=== PATIENT | female | born 1960 | race Caucasian/White ===

== ENCOUNTER 2018-05-20 02:37 | Inpatient (IN) ==
[2018-05-20] MEDS ORDERED: ONDANSETRON INJ 2 MG/ML 2 ML VIAL IV STA (02:59)
[2018-05-20] MEDS ORDERED: MoRPHine SULFATE 4 MG/ML 1 ML CARP\\VIAL IV STA (02:59)
--- NOTE | 2018-05-20 03:12 | Emergency Department Note ---
History of Present Illness General Chief complaint: Chest Pain Stated complaint: CHEST PAIN, VOMITING Source: patient Mode of arrival: ambulatory Limitations: no limitations History of Present Illness Maximum Pain Intensity: 9 This patient is a 58-year-old female who presents to the emergency department complaining of chest pain and vomiting. She reports the pain is at her lower chest and upper abdomen. The pain radiates into her back. Her pain started while she was sleeping 2 hours ago. She states the pain came on suddenly. It is worse when she takes a deep breath. She rates the discomfort a 9/10. She denies any history of similar symptoms. She denies any medical problems or history of abdominal surgeries. She has not taken any medication for her pain. She states that nothing has made the pain any better. Home Medications Home Medications Medication Instructions Recorded Confirmed Type No Known Home Medications 05/20/18 05/20/18 History Allergies Allergy/AdvReac Type Severity Reaction Status Date / Time diphenhydramine Allergy Severe THROAT Verified 05/20/18 03:05 SWELLS, CAN'T BREATHE naproxen Allergy Severe THROAT Verified 05/20/18 03:05 SWELLS, CAN'T BREATHE sertraline Allergy Severe THROAT Verified 05/20/18 03:05 SWELLS, CAN'T BREATHE Sulfa (Sulfonamide Allergy Severe THROAT Verified 05/20/18 03:05 Antibiotics) SWELLS, CAN'T BREATHE tramadol Allergy Severe THROAT Verified 05/20/18 03:05 SWELLS, CAN'T BREATHE Past Med/Surg History Medical History No significant past medical history Social History Feels Safe at Home: Yes Smoking Status: Never smoker Hx Alcohol Use: No Review of Systems A total of 10 systems reviewed and were otherwise negative Physical Exam Vital Signs Vital Signs - 24 hr 05/20/18 02:42 05/20/18 03:01 05/20/18 03:04 Temperature 36.3 C L Temperature Source Oral Sepsis Recent Fever Within 48 Hours No Sepsis New/Unexplained Change in Mental Status No Sepsis Action Taken by Nursing No Action Required Pulse Rate 56 L Pulse Rate [Bilateral Apical] Respiratory Rate 20 Respiratory Effort / Characteristics Respiratory Depth Respiratory Pattern Blood Pressure 166/72 H Blood Pressure [Right Arm] Blood Pressure Mean 103 Blood Pressure Mean [Right Arm] Blood Pressure Position [Right Arm] Pulse Oximetry 99 95 96 Oxygen Delivery Method Room Air Room Air Oxygen Flow Rate 05/20/18 03:22 05/20/18 04:09 05/20/18 04:39 Temperature Temperature Source Sepsis Recent Fever Within 48 Hours Sepsis New/Unexplained Change in Mental Status Sepsis Action Taken by Nursing Pulse Rate Pulse Rate [Bilateral Apical] 50 L 48 L Respiratory Rate 18 18 Respiratory Effort / Characteristics Non-Labored Spontaneous Non-Labored Spontaneous Respiratory Depth Normal Normal Respiratory Pattern Regular Regular Blood Pressure Blood Pressure [Right Arm] 142/70 H 136/68 Blood Pressure Mean Blood Pressure Mean [Right Arm] 94 90 Blood Pressure Position [Right Arm] Standing Pulse Oximetry 95 96 86 L Oxygen Delivery Method Room Air Room Air Room Air Oxygen Flow Rate 05/20/18 05:05 05/20/18 05:47 Temperature Temperature Source Sepsis Recent Fever Within 48 Hours Sepsis New/Unexplained Change in Mental Status Sepsis Action Taken by Nursing Pulse Rate 49 L Pulse Rate [Bilateral Apical] 48 L Respiratory Rate 18 18 Respiratory Effort / Characteristics Non-Labored Spontaneous Respiratory Depth Normal Respiratory Pattern Regular Blood Pressure 126/72 Blood Pressure [Right Arm] 114/68 Blood Pressure Mean Blood Pressure Mean [Right Arm] 83 Blood Pressure Position [Right Arm] Semi-fowlers Pulse Oximetry 95 96 Oxygen Delivery Method Nasal Cannula Nasal Cannula Oxygen Flow Rate 2 2 VITALS: Vitals are noted on the nurse's note and reviewed by myself. Vital signs stable. GENERAL: This is a 58-year-old female, uncomfortable appearing, nondiaphoretic, well-developed well-nourished. SKIN: The skin was without rashes. HEAD: Normocephalic atraumatic. EARS: External auditory canals clear, tympanic membranes pearly mishra without erythema or effusion bilaterally. EYES: Pupils equal round and reactive to light and accommodation. Conjunctivae without injection, sclerae without icterus. MOUTH: Mucous membranes moist. Tonsils are not enlarged. Pharynx without erythema or exudate. NECK: Supple without nuchal rigidity. No lymphadenopathy. HEART: Regular rate and rhythm without murmurs gallops or rubs. LUNGS: Clear to auscultation bilaterally without wheezes, rales or rhonchi. No retractions or accessory muscle use. ABDOMEN: Positive bowel sounds x 4. Soft, moderate tenderness to palpation in the right upper quadrant. No guarding or rebound tenderness. EXTREMITIES: No pitting edema of the lower extremities. NEURO: Patient was alert and oriented to person place and time. Course Consultations Consultation #1: [facility] Administered Medications Discontinued Medications Morphine Sulfate (Morphine Sulfate) 4 mg IV NOW STA Stop: 05/20/18 03:00 Last Admin: 05/20/18 03:17 Dose: 4 mg Documented by: [id number] Morphine Sulfate (Morphine Sulfate) 6 mg IV NOW STA Stop: 05/20/18 04:11 Last Admin: 05/20/18 04:21 Dose: 6 mg Documented by: [id number] Ondansetron HCl (Zofran) 4 mg IV NOW STA Stop: 05/20/18 03:00 Last Admin: 05/20/18 03:17 Dose: 4 mg Documented by: [id number] Medical Decision Making Differential Diagnosis Differential diagnosis includes ACS, cholecystitis, cholelithiasis, pancreatitis, bowel obstruction, PE, among others. Medical Records Attestation: I reviewed the patient's medical records. Home Medications Current Medication List: was personally reviewed by me Laboratory Data Attestation: I reviewed the patient's lab results. Result diagrams: 05/20/18 03:08 05/20/18 03:08 Lab Results 05/20/18 05/20/18 05/20/18 Range/Units 03:08 03:08 03:09 WBC 9.57 (4.8-10.8) K/uL RBC 5.14 (4.2-5.4) M/uL Hgb 14.4 (12.0-16.0) g/dL Hct 43.1 (37-47) % MCV 83.9 (80-100) fL MCH 28.0 (25-34) pg MCHC 33.4 (32-36) g/dL RDW Std Deviation 43.1 (36.4-46.3) fL RDW Coeff of Stuart 14.1 (11.5-14.5) % Plt Count 287 (130-400) K/uL MPV 9.9 (7.4-10.4) fL Immature Gran % (Auto) 0.2 % Neut % (Auto) 65.6 % Lymph % (Auto) 25.1 % [place] % (Auto) 7.1 % Eos % (Auto) 1.5 % Baso % (Auto) 0.5 % Immature Gran # (Auto) 0.02 (0.00-0.02) K/uL Neut # (Auto) 6.28 (1.4-6.5) K/uL Lymph # (Auto) 2.40 (1.2-3.4) K/uL [place] # (Auto) 0.68 H (0.11-0.59) K/uL Eos # (Auto) 0.14 (0-0.5) K/uL Baso # (Auto) 0.05 (0-0.2) K/uL Sodium 140 (136-145) mmol/L Potassium 3.6 (3.5-5.1) mmol/L Chloride 104 (98-107) mmol/L Carbon Dioxide 28 (21-32) mmol/L Anion Gap 8.0 (3-11) BUN 9 (7-18) mg/dl Creatinine 0.93 (0.6-1.2) mg/dl Est Cr Clr Drug Dosing 72.6 ml/min Est GFR ( Amer) 77.4 Est GFR (Non-Af Amer) 66.8 BUN/Creatinine Ratio 10.1 (10-20) Glucose 126 H (70-99) mg/dl Calcium 9.6 (8.5-10.1) mg/dl Total Bilirubin 0.4 (0.2-1) mg/dl AST 17 (15-37) U/L ALT 23 (12-78) U/L Alkaline Phosphatase 124 H (45-117) U/L POC Troponin I < 0.03 (0-0.045) ng/ml Total Protein 8.2 (6.4-8.2) gm/dl Albumin 3.5 (3.4-5.0) gm/dl Globulin 4.7 H (2.5-4.0) gm/dl Albumin/Globulin Ratio 0.7 L (0.9-2) Lipase 89 (73-393) U/L Imaging Data Attestation: I personally reviewed and interpreted this imaging study as fol lows: Radiologist's Impression: US RUQ: Limited by bowel and body habitus. Distended gallbladder. Cholelithiasis with non-mobile stones at gallbladder neck. Normal gallbladder wall thickness. Visualized CBD of normal caliber. Increased echogenicity of liver. Liver measures approximately 17 cm. Pancreas is obscured. 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 Radiologist: Jai Tinajero M.D. CHEST 1 VIEW: Borderline cardiomegaly. No widened mediastinum. No infiltrates. Blood Pressure Blood Pressure Findings: Normal blood pressure Blood Pressure Disposition: did not require urgent referral MDM Narrative The patient is a 58-year-old female who presents today complaining of chest/ upper abdominal pain. Troponin unremarkable, EKG not suggestive of ischemic disease. Patient had significant tenderness in the right upper quadrant. Labs revealed no leukocytosis, anemia or concerning electrolyte abnormalities. Right upper quadrant ultrasound was performed and did show cholelithiasis but no evidence of cholecystitis. I highly suspect the patient's symptoms are due to biliary colic. Her pain was difficult to control and she did require more than 1 dose of morphine for pain control. Given this, I did recommend inpatient stay for further workup. The patient was agreeable to this. She was admitted to the [facility] for further evaluation and care. The patient was independently evaluated by Dr. Greene, who agreed with my assessment and treatment plan. Impression & Plan Biliary colic Discharge Plan Visit Data Chief Complaint: Chest Pain Stated Complaint: CHEST PAIN, VOMITING ED Provider: Roseline Greene ED Midlevel Provider: Nhung Shelton Discharge Problem: Biliary colic Discharge Instructions Interventions: ED Discharge Assessment Last Done: 05/20/18 05:47
[2018-05-20 03:14] LABS: Basophils # (auto) 0.05 K/uL (0-0.2); Basophils % (auto) 0.5 %; Eosinophils # (auto) 0.14 K/uL (0-0.5); Eosinophils % (auto) 1.5 %; Hematocrit (blood only) 43.1 % (37-47); Hemoglobin 14.4 g/dL (12.0-16.0); Immature Granulocytes # (auto) 0.02 K/uL (0.00-0.02); Immature Granulocytes % (auto) 0.2 %; Lymphocytes % (auto) 25.1 %; Mean Corpuscular Hgb Conc 33.4 g/dL (32-36); Mean Corpuscular Volume 83.9 fL (80-100); Mean Platelet Volume 9.9 fL (7.4-10.4); Monocytes # (auto) 0.68 K/uL (0.11-0.59); Monocytes % (auto) 7.1 %; Neutrophils # (auto) 6.28 K/uL (1.4-6.5); Neutrophils % (auto) 65.6 %; Platelet Count 287 K/uL (130-400); RDW Coefficient of Variation 14.1 % (11.5-14.5); RDW Standard Deviation 43.1 fL (36.4-46.3); Red Blood Count 5.14 M/uL (4.2-5.4); White Blood Count 9.57 K/uL (4.8-10.8)
[2018-05-20 03:33] LABS: Albumin Level 3.5 gm/dl (3.4-5.0); BUN Creatinine Ratio 10.1 (10-20); Calcium 9.6 mg/dl (8.5-10.1); Creatinine Clr Calc Pharmacy 72.6 ml/min; Est GFR (African American) 77.4; Est GFR (Non-African American) 66.8; Potassium 3.6 mmol/L (3.5-5.1)
[2018-05-20 03:35] LABS: Albumin Globulin Ratio 0.7 (0.9-2); Bilirubin,Total 0.4 mg/dl (0.2-1); Globulin 4.7 gm/dl (2.5-4.0); Total Protein 8.2 gm/dl (6.4-8.2)
[2018-05-20] MEDS ORDERED: MoRPHine SULFATE 10 MG/ML CARP/VIAL IV STA (04:10)
[2018-05-20] MEDS ORDERED: ACETAMINOPHEN 1,000 MG/100 ML VIAL IV PRN (06:09)
[2018-05-20] MEDS ORDERED: ALUMINUM/MAGNESIUM SUSP 30 ML UDC PO PRN (06:09)
[2018-05-20] MEDS ORDERED: ONDANSETRON INJ 2 MG/ML 2 ML VIAL IV PRN (06:09)
[2018-05-20] MEDS ORDERED: NITROGLYCERIN SL 0.4 MG/TAB TAB SL PRN (06:09)
[2018-05-20] MEDS ORDERED: PIPERACILL/TAZOBAC CONSULT ACTIVE PRN (06:09)
[2018-05-20] MEDS ORDERED: ACETAMINOPHEN 325 MG TAB PO PRN (06:09)
[2018-05-20] MEDS ORDERED: PIPERACILLIN/TAZOBACTAM 3.375 GM in DEXTROSE 5% 100 ML IV ONE (06:30)
--- NOTE | 2018-05-20 06:55 | Ultrasound Report ---
BILIARY ULTRASOUND CLINICAL HISTORY: Upper abdominal pain COMPARISON STUDY: No previous studies for comparison. FINDINGS: The pancreas was not visualized. The liver was of increased echogenicity, nonspecific findi ng often seen in hepatic steatosis. The gallbladder contains multiple calculi including a 29 mm calcu juan. The gallbladder was mildly distended.. There was no gallbladder wall thickening. There was no pe richolecystic fluid. There is no ductal dilatation. There is no right-sided hydronephrosis. IMPRESSION: 1. Distended gallbladder containing multiple calculi. 2. No ductal dilatation. 3. Nondiagnostic evaluation of the pancreas 4. Increased hepatic echogenicity, nonspecific finding most often seen in hepatic steatosis. Electronically signed by: Darius De La Cruz M.D. 05/20/2018 6:54 AM
--- NOTE | 2018-05-20 07:08 | XRay Report ---
SINGLE VIEW CHEST CLINICAL HISTORY: Atypical chest pain. FINDINGS: 2 AP, portable, upright chest radiographs are compared to study dated 06/01/2008. The examin ation is degraded by portable technique and patient rotation. The cardiomediastinal silhouette is un remarkable. There is mild left basilar atelectasis. The lungs and pleural spaces are otherwise clear. No pneumothorax is seen. The skeletal structures are osteopenic. The bony thorax is grossly intact. Fusion hardware is noted in the lower cervical spine. IMPRESSION: No active disease in the chest. Electronically signed by: Brigido Benavidez M.D. 05/20/2018 7:07 AM
[2018-05-20] MEDS ORDERED: PERFLUTREN LIPID MICROSPHERE (DEFINITY) IV ONE (07:21)
[2018-05-20] MEDS: SODIUM CHLORIDE 0.9% 1000ML 1,000 ML IV SCH ×3 (07:24→21:18)
--- NOTE | 2018-05-20 07:53 | History and Physical Report ---
DATE OF ADMISSION: 05/20/2018 CHIEF COMPLAINT: Chest pain. HISTORY OF PRESENT ILLNESS: This is a 58-year-old female with no significant past medical history and not on medication at home, presents with chest pain and nausea and vomiting. The patient says that she was awoken from the sleep because of the lower part of the chest pain, 8/10 in severity, radiating to back, associated with nausea and she vomited for about 2 hours and she came to the ER. In the ER, she was also found to have some tenderness in the right upper quadrant region and gallbladder ultrasound shows some gallstones. She received pain medications 2 doses. She states she still has some chest pain in the lower part of chest, this pain is more when taking deep breath. The patient is hard of hearing. Her is helping with history. Otherwise, elvi says patient is fine and she can climb steps and walk fine. No tobacco abuse or alcohol abuse. Denies any headache, no sore throat, no difficulty swallowing. When this episode happened, she was short of breath. Denies any cough. No fevers, but feeling cold. Normal bowel and bladder movements. The patient is also bradycardic in the ER. ALLERGIES: DIPHENHYDRAMINE, NAPROXEN, ZOLOFT, SULFA ANTIBIOTICS, TRAMADOL. PAST MEDICAL HISTORY: As mentioned above. PAST SURGICAL HISTORY: Partial left hip replacement, partial hysterectomy, cervical spine surgery. MEDICATIONS: None. FAMILY HISTORY: Significant for father and mother, of natural causes. SOCIAL HISTORY: , lives with her . No smoking, no alcohol, no drug use. REVIEW OF SYMPTOMS: As per HPI. Rest of review of symptoms is negative. PHYSICAL EXAMINATION: GENERAL: The patient is moderate built, not in acute distress. VITAL SIGNS: Temperature 36.3, pulse 48, respiratory rate 18, blood pressure 114/68, oxygen 95% on 2 liters. HEENT: No pallor, no icterus. Pupils equal, round react to light. Oral mucosa dry. NECK: No JVD or neck masses, no carotid bruits. CARDIOVASCULAR: S1, S2 heard. Bradycardia. No murmurs. RESPIRATORY SYSTEM: Normal AP diameter. No accessory muscle use. No wheezing, no crackles. ABDOMEN: Soft, bowel sounds present. Tenderness in right upper quadrant region. No guarding, no rigidity. No distention. CENTRAL NERVOUS SYSTEM: Cranial nerves II-XII grossly intact. Nonfocal. EXTREMITIES: No edema, no erythema. LABORATORY DATA: WBC 9.5, hemoglobin 14.4, hematocrit 43.1, platelets 287. Sodium 140, potassium 3.6, chloride 104, bicarbonate 28, BUN 9, creatinine 0.9, serum glucose 136, calcium 9.6, total bilirubin 0.4, AST 17, ALT 23, alkaline phosphorus 124. Point of care troponin I less than 0.03, lipase 99. Gallbladder ultrasound pending. EKG: Sinus bradycardia with sinus arrhythmia, rate of 52. No acute ST changes seen. ASSESSMENT AND PLAN: This 58-year-old female who presents with lower part of chest pain, nausea, vomiting. 1. Lower part of the chest pain, nausea, vomiting with right upper quadrant abdominal tenderness on exam. Unofficial report of the gallbladder ultrasound shows gallstones and distended gallbladder. LFTs are okay except for mild elevation of alkaline phosphatase. We will follow the official report of the gallbladder. Place on IV Zosyn, n.p.o., IV fluids, IV pain meds, IV antibiotics. Consult surgery for further recommendations. Close monitor. Follow the repeat labs. Follow the official report of gallbladder ultrasound for any CBD dilatation. 2. Sinus bradycardia, run of 3 beats of V-tach in the ER and the patient still has some chest pain. Chest pain could be mostly from the gallbladder disease, bradycardia and run of V-tach, probably the pain and from the pain medications in the ER, but we will monitor in tele floor. Will follow electrolytes.We will follow the serial cardiac enzymes and echocardiogram and consult cardiology for further recommendation, also for preop evaluation. The patient is otherwise active at home prior to this episode. 3. Deep venous thrombosis prophylaxis, SCDs for now. 4. Disposition: Admit to tele floor. Expect to discharge home and follow with her family doctor. Level 1 full code. MTDD
[2018-05-20 08:00] LABS: Basophils # (auto) 0.02 K/uL (0-0.2); Basophils % (auto) 0.2 %; Hematocrit (blood only) 40.1 % (37-47); Hemoglobin 13.6 g/dL (12.0-16.0); Immature Granulocytes # (auto) 0.01 K/uL (0.00-0.02); Immature Granulocytes % (auto) 0.1 %; Lymphocytes # (auto) 1.47 K/uL (1.2-3.4); Lymphocytes % (auto) 14.8 %; Mean Corpuscular Hgb Conc 33.9 g/dL (32-36); Mean Corpuscular Volume 84.1 fL (80-100); Mean Platelet Volume 9.8 fL (7.4-10.4); Monocytes # (auto) 0.51 K/uL (0.11-0.59); Monocytes % (auto) 5.1 %; Neutrophils # (auto) 7.91 K/uL (1.4-6.5); Neutrophils % (auto) 79.8 %; Platelet Count 267 K/uL (130-400); RDW Coefficient of Variation 14.2 % (11.5-14.5); RDW Standard Deviation 44.2 fL (36.4-46.3); Red Blood Count 4.77 M/uL (4.2-5.4); White Blood Count 9.92 K/uL (4.8-10.8)
[2018-05-20 08:37] LABS: BUN Creatinine Ratio 11.7 (10-20); Blood Urea Nitrogen 9 mg/dl (7-18); Calcium 9.4 mg/dl (8.5-10.1); Carbon Dioxide 28 mmol/L (21-32); Chloride 105 mmol/L (98-107); Creatinine Clr Calc Pharmacy 85.5 ml/min; Est GFR (African American) 95.8; Est GFR (Non-African American) 82.6; Glucose 133 mg/dl (70-99); Magnesium 1.9 mg/dl (1.8-2.4); Potassium 4.1 mmol/L (3.5-5.1); Sodium 140 mmol/L (136-145)
[2018-05-20 08:41] LABS: Troponin I < 0.015 ng/ml (0-0.045)
--- NOTE | 2018-05-20 11:37 | Cardiology Consultation ---
Date of Consultation May 20, 2018 Assessment & Plan (1) Biliary colic: Symptoms and presentation consistent with acute biliary colic currently being treated surgical and GI evaluation pending (2) Sinus bradycardia: We will add TSH to baseline laboratory studies No evidence of ischemia with normal LV systolic function normal troponin (3) Ventricular ectopic beats: Appear to be secondary to acute presentation illness No ventricular arrhythmias on telemetry History of Present Illness Reason for Consultation: Abdominal/chest pain ventricular ectopy Requesting Physician: Patient is a 58-year-old female without prior history of cardiac disease who last evening developed lower substernal and upper abdominal pain severe with multiple hours of retching and nausea. Patient presented to the emergency room where she was noted to be bradycardic on monitor with occasional ventricular ectopic beats. EKG revealed sinus bradycardia without acute changes Troponins negative x2. Evaluation demonstrates cholelithiasis with patient with positive Munoz sign on examination Echocardiogram this morning demonstrates normal left her systolic function Telemetry reviewed revealed occasional ventricular ectopic beats, artifact, no ventricular arrhythmias Patient denies prior history of chest pain, tachypalpitations, syncope, near syncope, orthopnea, or peripheral edema. Denies history of rheumatic fever scarlet fever renal or hepatic disease. General exercise tolerance is good with patient active about her home without specific limitation. Denies sleep disturbance orthopnea acute weight loss or gain. Notes no bleeding difficulties melena hematochezia. Notes no acute fevers or chills. First event of similar symptoms as noted above Attending Physician: Delfino Randall MD Allergies Allergy/AdvReac Type Severity Reaction Status Date / Time diphenhydramine Allergy Severe THROAT Verified 05/20/18 03:05 SWELLS, CAN'T BREATHE naproxen Allergy Severe THROAT Verified 05/20/18 03:05 SWELLS, CAN'T BREATHE sertraline Allergy Severe THROAT Verified 05/20/18 03:05 SWELLS, CAN'T BREATHE Sulfa (Sulfonamide Allergy Severe THROAT Verified 05/20/18 03:05 Antibiotics) SWELLS, CAN'T BREATHE tramadol Allergy Severe THROAT Verified 05/20/18 03:05 SWELLS, CAN'T BREATHE Home Medications Home Medications Medication Instructions Recorded Confirmed Type No Known Home Medications 05/20/18 05/20/18 History Patient History Medical History No significant past medical history Social History Preferred Language: Turkmen Beliefs That Will Affect Care: None Current Living Situation: Spouse Feels Safe at Home: Yes Safety Concerns: Feels Safe At This Time Smoking Status: Never smoker Hx Alcohol Use: No Hx Substance Use: No Review of Systems As per HPI and otherwise negative Physical Exam Vital Signs (Past 24 Hours): Last Vital Signs Temp 36.5 C 05/20/18 08:05 Pulse 47 L 05/20/18 08:05 Resp 17 05/20/18 08:05 BP 115/55 L 05/20/18 08:05 Pulse Ox 92 05/20/18 08:05 Constitutional: WD/WN, vitals as above Eyes: PERRL, conjunctivae normal, anicteric sclerae Neck: trachea midline, no thyromegaly Respiratory: normal respiratory effort, lungs clear to auscultation Cardiovascular: Rate/Rhythm: regular rate Heart Sounds: normal S1 and normal S2; no gallop, no murmur and no cardiac rub Extremities: no edema Gastrointestinal (Abdomen): Percussion/Palpation: + abdomen tender and abdomen soft Patient focally tender right upper quadrant with mild guarding, positive Munoz sign Musculoskeletal: no cyanosis or clubbing, extremities motor strength 5/5 Skin: no rashes, warm and dry Results & Data Laboratory Results Laboratory Results - last 24 hr 05/20/18 05/20/18 05/20/18 03:08 03:08 03:09 WBC 9.57 RBC 5.14 Hgb 14.4 Hct 43.1 MCV 83.9 MCH 28.0 MCHC 33.4 RDW Std Deviation 43.1 RDW Coeff of [place] 14.1 Plt Count 287 MPV 9.9 Immature Gran % (Auto) 0.2 Neut % (Auto) 65.6 Lymph % (Auto) 25.1 [place] % (Auto) 7.1 Eos % (Auto) 1.5 Baso % (Auto) 0.5 Immature Gran # (Auto) 0.02 Neut # (Auto) 6.28 Lymph # (Auto) 2.40 [place] # (Auto) 0.68 H Eos # (Auto) 0.14 Baso # (Auto) 0.05 Sodium 140 Potassium 3.6 Chloride 104 Carbon Dioxide 28 Anion Gap 8.0 BUN 9 Creatinine 0.93 Est Cr Clr Drug Dosing 72.6 Est GFR ( Amer) 77.4 Est GFR (Non-Af Amer) 66.8 BUN/Creatinine Ratio 10.1 Glucose 126 H Calcium 9.6 Magnesium Total Bilirubin 0.4 AST 17 ALT 23 Alkaline Phosphatase 124 H POC Troponin I < 0.03 Troponin I Total Protein 8.2 Albumin 3.5 Globulin 4.7 H Albumin/Globulin Ratio 0.7 L Lipase 89 05/20/18 05/20/18 07:35 07:35 WBC 9.92 RBC 4.77 Hgb 13.6 Hct 40.1 MCV 84.1 MCH 28.5 MCHC 33.9 RDW Std Deviation 44.2 RDW Coeff of [place] 14.2 Plt Count 267 MPV 9.8 Immature Gran % (Auto) 0.1 Neut % (Auto) 79.8 Lymph % (Auto) 14.8 [place] % (Auto) 5.1 Eos % (Auto) 0.0 Baso % (Auto) 0.2 Immature Gran # (Auto) 0.01 Neut # (Auto) 7.91 H Lymph # (Auto) 1.47 [place] # (Auto) 0.51 Eos # (Auto) 0.00 Baso # (Auto) 0.02 Sodium 140 Potassium 4.1 Chloride 105 Carbon Dioxide 28 Anion Gap 7.0 BUN 9 Creatinine 0.78 Est Cr Clr Drug Dosing 85.5 Est GFR ( Amer) 95.8 Est GFR (Non-Af Amer) 82.6 BUN/Creatinine Ratio 11.7 Glucose 133 H Calcium 9.4 Magnesium 1.9 Total Bilirubin AST ALT Alkaline Phosphatase POC Troponin I Troponin I < 0.015 Total Protein Albumin Globulin Albumin/Globulin Ratio Lipase Diagnostic Findings Echocardiogram 05/20/2018 Normal left systolic function EF 65-70% with no wall motion abnormalities Mild left hypertrophy Grade 2 diastolic dysfunction, Mild mitral and tricuspid insufficiency No evidence of pulmonary hypertension ECG Additional Comments: EKG during acute [id number] 02:50:25 [facility] Sinus bradycardia with sinus arrhythmia Otherwise normal ECG When compared with ECG of 01-JUN-2008 15:58, Vent. rate has decreased BY 25 BPM
[2018-05-20 12:37] LABS: Troponin I < 0.015 ng/ml (0-0.045)
[2018-05-20] MEDS: PIPERACILLIN/TAZOBACTAM 3.375 GM in DEXTROSE 5% 100 ML IV SCH ×2 (12:58→21:18)
--- NOTE | 2018-05-20 13:14 | Surgery Consultation ---
Date of Consultation May 20, 2018 Assessment & Plan (1) Biliary colic: 58 year-old female who presented to emergency department early this morning with complaint of sudden epigastric abdominal pain with radiation to her chest and to her back with associated nausea and vomiting that woke her up at 2 am this morning. Abdominal ultrasound showing distended gallbladder with multiple stones measuring up to 29 mm. Labs were unremarkable for leukocytosis or elevated t. bili and lfts. Abdomen soft but tender in the RUQ on deep palpation. Pain improved with Morphine. Plan: No findings of acute cholecystitis on ultrasound however patient presented with moderate pain , nausea, and vomiting consistent with biliary colic and possibly early signs of cholecystitis. Recommend cholecystectomy given symptoms. Discussed with patient procedure and risks including but not limited to bleeding, infection, injury to bowel, injury to common bile duct. Patient understood and informed consent obtained. OR tomorrow am at 8:30 May have clear liquids today, NPO after midnight Continue medical management Continue pain management as needed, IV Zofran as needed for nausea, IV Fluids, and IV Zosyn. Dr. Parker has seen and examined patient, developed assessment and plan. Supervising Physician Co-Signing Physician Notes I have interviewed and examined this patient and reviewed her laboratories and radiologic studies and I agree with the above note. This patient has symptoms consistent with severe biliary colic with possible early cholecystitis. Her symptoms are abating. Her cardiac workup has been negative. I agree that removing her gallbladder as indicated. We discussed laparoscopic cholecystectomy and the possible need to convert to an open procedure. We discussed possible complications associated with those procedures. She stated understanding and signed a consent form. She can have clear liquids today and will be kept n.p.o. after midnight. History of Present Illness Reason for Consultation: Gallstones Requesting Physician: Delfino Randall MD Attending Physician: Delfino Randall MD History of Present Illness Kirsten is a pleasant 58 year-old female who presented to emergency department early this morning with complaint of sudden onset of epigastric abdominal pain that went into her chest and straight to her back. Associated nausea and vomiting. Manter hot but did not take her temperature. Last ate a lunch meat sandwich for dinner last night. Never had this type of pain before. She denies of any changes in her bowel habits including diarrhea, constipation, blood in stools, black/tarry stools. Denies of any chest pain or shortness of breath. No significant past medical history. Prior surgeries including right hip replacement, Cervical neck surgery with anterior approach, hysterectomy with unilateral oophorrectomy. Er work-up included labs which were unremarkable including cbc, lfts, t. bili. Ultrasound showed distended gallbladder with multiple stones measuring up to 29 mm. No evidence of wall thickening or pericholecystic fluid. CBD normal in size. Since being seen in ER and has had Morhpine is feeling better. Pain better controlled. Hungry would like something to eat. Allergies Allergy/AdvReac Type Severity Reaction Status Date / Time diphenhydramine Allergy Severe THROAT Verified 05/20/18 03:05 SWELLS, CAN'T BREATHE naproxen Allergy Severe THROAT Verified 05/20/18 03:05 SWELLS, CAN'T BREATHE sertraline Allergy Severe THROAT Verified 05/20/18 03:05 SWELLS, CAN'T BREATHE Sulfa (Sulfonamide Allergy Severe THROAT Verified 05/20/18 03:05 Antibiotics) SWELLS, CAN'T BREATHE tramadol Allergy Severe THROAT Verified 05/20/18 03:05 SWELLS, CAN'T BREATHE Home Medications Home Medications Medication Instructions Recorded Confirmed Type No Known Home Medications 05/20/18 05/20/18 History Patient History Medical History No significant past medical history Social History Preferred Language: Kiswahili Beliefs That Will Affect Care: None Current Living Situation: Spouse Feels Safe at Home: Yes Safety Concerns: Feels Safe At This Time Smoking Status: Never smoker Hx Alcohol Use: No Hx Substance Use: No Review of Systems Constitutional: as per Subjective / HPI Physical Exam Vital Signs (Past 24 Hours): Last Vital Signs Temp 36.6 C 05/20/18 12:02 Pulse 49 L 05/20/18 12:02 Resp 20 05/20/18 12:02 BP 94/59 L 05/20/18 12:02 Pulse Ox 91 05/20/18 12:02 Constitutional: WD/WN, vitals as above + obese; + not well nourished and no acute distress Respiratory: normal respiratory effort, lungs clear to auscultation Cardiovascular: RRR, no murmur, no edema Gastrointestinal (Abdomen): Inspection/Auscultation: abdomen normal to inspect ion and normal bowel sounds; abdomen not distended Percussion/Palpation: + abdomen tender (RUQ on deep palpation, negative Munoz's) and abdomen soft; no guarding and abdomen not rigid Skin: no rashes, warm and dry Psychiatric: A+Ox3, euthymic affect Results & Data Laboratory Results 05/20/18 05/20/18 05/20/18 Range/Units 11:47 07:35 07:35 WBC 9.92 (4.8-10.8) K/uL RBC 4.77 (4.2-5.4) M/uL Hgb 13.6 (12.0-16.0) g/dL Hct 40.1 (37-47) % MCV 84.1 (80-100) fL MCH 28.5 (25-34) pg MCHC 33.9 (32-36) g/dL RDW Std Deviation 44.2 (36.4-46.3) fL RDW Coeff of Stuart 14.2 (11.5-14.5) % Plt Count 267 (130-400) K/uL MPV 9.8 (7.4-10.4) fL Immature Gran % (Auto) 0.1 % Neut % (Auto) 79.8 % Lymph % (Auto) 14.8 % [place] % (Auto) 5.1 % Eos % (Auto) 0.0 % Baso % (Auto) 0.2 % Immature Gran # (Auto) 0.01 (0.00-0.02) K/uL Neut # (Auto) 7.91 H (1.4-6.5) K/uL Lymph # (Auto) 1.47 (1.2-3.4) K/uL [place] # (Auto) 0.51 (0.11-0.59) K/uL Eos # (Auto) 0.00 (0-0.5) K/uL Baso # (Auto) 0.02 (0-0.2) K/uL Sodium 140 (136-145) mmol/L Potassium 4.1 (3.5-5.1) mmol/L Chloride 105 (98-107) mmol/L Carbon Dioxide 28 (21-32) mmol/L Anion Gap 7.0 (3-11) BUN 9 (7-18) mg/dl Creatinine 0.78 (0.6-1.2) mg/dl Est Cr Clr Drug Dosing 85.5 ml/min Est GFR ( Amer) 95.8 Est GFR (Non-Af Amer) 82.6 BUN/Creatinine Ratio 11.7 (10-20) Glucose 133 H (70-99) mg/dl Calcium 9.4 (8.5-10.1) mg/dl Magnesium 1.9 (1.8-2.4) mg/dl Total Bilirubin (0.2-1) mg/dl AST (15-37) U/L ALT (12-78) U/L Alkaline Phosphatase (45-117) U/L POC Troponin I (0-0.045) ng/ml Troponin I < 0.015 < 0.015 (0-0.045) ng/ml Total Protein (6.4-8.2) gm/dl Albumin (3.4-5.0) gm/dl Globulin (2.5-4.0) gm/dl Albumin/Globulin Ratio (0.9-2) Lipase (73-393) U/L TSH 1.770 (0.300-4.500) uIu/ml 05/20/18 05/20/18 05/20/18 Range/Units 03:09 03:08 03:08 WBC 9.57 (4.8-10.8) K/uL RBC 5.14 (4.2-5.4) M/uL Hgb 14.4 (12.0-16.0) g/dL Hct 43.1 (37-47) % MCV 83.9 (80-100) fL MCH 28.0 (25-34) pg MCHC 33.4 (32-36) g/dL RDW Std Deviation 43.1 (36.4-46.3) fL RDW Coeff of Stuart 14.1 (11.5-14.5) % Plt Count 287 (130-400) K/uL MPV 9.9 (7.4-10.4) fL Immature Gran % (Auto) 0.2 % Neut % (Auto) 65.6 % Lymph % (Auto) 25.1 % [place] % (Auto) 7.1 % Eos % (Auto) 1.5 % Baso % (Auto) 0.5 % Immature Gran # (Auto) 0.02 (0.00-0.02) K/uL Neut # (Auto) 6.28 (1.4-6.5) K/uL Lymph # (Auto) 2.40 (1.2-3.4) K/uL [place] # (Auto) 0.68 H (0.11-0.59) K/uL Eos # (Auto) 0.14 (0-0.5) K/uL Baso # (Auto) 0.05 (0-0.2) K/uL Sodium 140 (136-145) mmol/L Potassium 3.6 (3.5-5.1) mmol/L Chloride 104 (98-107) mmol/L Carbon Dioxide 28 (21-32) mmol/L Anion Gap 8.0 (3-11) BUN 9 (7-18) mg/dl Creatinine 0.93 (0.6-1.2) mg/dl Est Cr Clr Drug Dosing 72.6 ml/min Est GFR ( Amer) 77.4 Est GFR (Non-Af Amer) 66.8 BUN/Creatinine Ratio 10.1 (10-20) Glucose 126 H (70-99) mg/dl Calcium 9.6 (8.5-10.1) mg/dl Magnesium (1.8-2.4) mg/dl Total Bilirubin 0.4 (0.2-1) mg/dl AST 17 (15-37) U/L ALT 23 (12-78) U/L Alkaline Phosphatase 124 H (45-117) U/L POC Troponin I < 0.03 (0-0.045) ng/ml Troponin I (0-0.045) ng/ml Total Protein 8.2 (6.4-8.2) gm/dl Albumin 3.5 (3.4-5.0) gm/dl Globulin 4.7 H (2.5-4.0) gm/dl Albumin/Globulin Ratio 0.7 L (0.9-2) Lipase 89 (73-393) U/L TSH (0.300-4.500) uIu/ml Diagnostic Findings BILIARY ULTRASOUND CLINICAL HISTORY: Upper abdominal pain COMPARISON STUDY: No previous studies for comparison. FINDINGS: The pancreas was not visualized. The liver was of increased echogenicity, nonspecific finding often seen in hepatic steatosis. The gallbladder contains multiple calculi including a 29 mm calculus. The gallbladder was mildly distended.. There was no gallbladder wall thickening. There was no pericholecystic fluid. There is no ductal dilatation. There is no right-sided hydronephrosis. IMPRESSION: 1. Distended gallbladder containing multiple calculi. 2. No ductal dilatation. 3. Nondiagnostic evaluation of the pancreas 4. Increased hepatic echogenicity, nonspecific finding most often seen in he patic steatosis.
[2018-05-20 13:44] LABS: Appearance Urine Cloudy (Clear); Bacteria Urine Automated Negative (Negative); Bilirubin Urine Negative (Negative); Blood Urine Negative (Negative); Color Urine Yellow; Epithelial Cell Urine Auto >30 /lpf (0-5); Glucose Urine UA Negative (Negative); Ketones Urine Negative (Negative); Leukocyte Esterase Urine Negative (Negative); Nitrite Urine Negative (Negative); Protein Urine Negative (Negative); RBC Urine Automated 0-4 /hpf (0-4); Specific Gravity Urine 1.016 (1.000-1.030); Urobilinogen Urine Negative (Negative)
--- NOTE | 2018-05-20 14:26 | Hospitalist Progress Note ---
Date of Service May 20, 2018 Assessment & Plan (1) Biliary colic: Biliary colic secondary to gallstones (cholelithiasis) Abdominal ultrasound showing distended gallbladder with multiple stones measuring up to 29 mm Patient has been seen by general surgery team and the plans are to have liquid diet for now with plans for going to the operating room tomorrow for possible cholecystectomy Continue pain management as needed, IV Zofran as needed for nausea, IV Fluids General surgery service have ordered IV Zosyn q8 hours for now Cardiology service was asked to evaluate patient presented to the emergency room where she was noted to be bradycardic on monitor with occasional ventricular ect opic beats which was misinterpreted as run of ventricular tachycardia EKG revealed sinus bradycardia without acute changes Troponins negative x3 No evidence of ischemia with normal LV systolic function on echocardiogram and normal troponin levels Telemetry reviewed revealed occasional ventricular ectopic beats, artifact, no ventricular arrhythmias as per cardiology service, patient had Ventricular ectopic beats that appeared to be secondary to acute presentation illness currently Sinus bradycardia: Auditory impairments Patient has auditory impairments but able to read lips and respond verbally and appropriately. Deep venous thrombosis prophylaxis, SCDs Full Code [place] [phone] at bedside Subjective Patient seen and examined earlier with [place] [phone] at bedside Patient has auditory impairments but able to read lips and respond appropriately. Patient reports abdominal discomfort around right upper/lower naomi drants of abdomen. Patient denies other problems or chest pain or shortness of breath. Physical Exam Vital Signs (Past 24 Hours): Last Vital Signs Temp 36.6 C 05/20/18 12:02 Pulse 49 L 05/20/18 12:02 Resp 20 05/20/18 12:02 BP 94/59 L 05/20/18 12:02 Pulse Ox 91 05/20/18 12:02 Constitutional: WD/WN, vitals as above Eyes: PERRL, conjunctivae normal, anicteric sclerae EOM intact bilaterally ENMT: external ear and nose normal, oropharynx normal patient able to read lips and respond verbally Respiratory: normal respiratory effort, lungs clear to auscultation Cardiovascular: RRR, no murmur, no edema Gastrointestinal (Abdomen): Inspection/Auscultation: abdomen normal to inspection (patient reports pain of right quadrant) and normal bowel sounds Musculoskeletal: no cyanosis or clubbing, extremities motor strength 5/5 Head/Neck/Chest: normocephalic and head atraumatic Neurologic: PERRL, EOMI, accommodation nl, no face palsy, no dysarthria CN's II-XI intact bilaterally Psychiatric: A+Ox3, euthymic affect
[2018-05-21] MEDS: PIPERACILLIN/TAZOBACTAM 3.375 GM in DEXTROSE 5% 100 ML IV SCH ×3 (04:43→20:44)
[2018-05-21] MEDS: SODIUM CHLORIDE 0.9% 1000ML 1,000 ML IV SCH ×3 (04:43→20:44)
--- NOTE | 2018-05-21 04:57 | Anesthesiology Consultation ---
Date of Service May 21, 2018 Assessment & Plan (1) Encounter for pre-operative examination: Chart Review Chart Review: Acceptable Risk for Surgery and Patient NOT seen in Pre Admission Testing Consults Requested none Cardiology service was asked to evaluate patient presented to the emergency room where she was noted to be bradycardic on monitor with occasional ventricular ectopic beats which was misinterpreted as run of ventricular tachycardia EKG revealed sinus bradycardia without acute changes Troponins negative x3 No evidence of ischemia with normal LV systolic function on echocardiogram and normal troponin levels Telemetry reviewed revealed occasional ventricular ectopic beats, artifact, no ventricular arrhythmias as per cardiology service, patient had Ventricular ectopic beats that appeared to be secondary to acute presentation illness currently Sinus bradycardia Proposed Anesthesia Risk / Benefits Reviewed With: PT / POA / Parent / Guardian, Accepts Plan and Informed Consent Obtained History Surgery Operation Date: 05/21/18 08:35 Proposed Procedures p Laparoscopic Cholecystectomy, No Cholangiogram - Dennis Parker MD Height/Weight Height: 5 ft 5 in Weight: 91 kg Allergies Allergy/AdvReac Type Severity Reaction Status Date / Time diphenhydramine Allergy Severe THROAT Verified 05/20/18 03:05 SWELLS, CAN'T BREATHE naproxen Allergy Severe THROAT Verified 05/20/18 03:05 SWELLS, CAN'T BREATHE sertraline Allergy Severe THROAT Verified 05/20/18 03:05 SWELLS, CAN'T BREATHE Sulfa (Sulfonamide Allergy Severe THROAT Verified 05/20/18 03:05 Antibiotics) SWELLS, CAN'T BREATHE tramadol Allergy Severe THROAT Verified 05/20/18 03:05 SWELLS, CAN'T BREATHE Medications Home Medications Medication Instructions Recorded Confirmed Last Taken No Known Home Medications 05/20/18 05/20/18 Unknown Active Medications Generic Name Dose Route Start Last Admin Trade Name Freq PRN Reason Stop Dose Admin Sodium Chloride 1,000 mls @ 125 mls/hr 05/20/18 06:09 05/21/18 04:43 Nss 1000ml IV 06/19/18 06:08 125 mls/hr .Q8H NARDA Administration Piperacillin Sod/Tazobactam 115 mls @ 28.75 mls/hr 05/20/18 12:00 05/21/18 04:43 Sod 3.375 gm/ Dextrose IV 05/30/18 11:59 28.8 mls/hr Q8H NARDA Administration Ondansetron HCl 4 mg 05/20/18 06:09 05/20/18 13:30 Zofran IV 06/19/18 06:08 4 mg Q6H PRN Administration Nausea Past Medical History Medical History No significant past medical history Past Anesthesia History No Hx of Anesthesia Complications and No Family Hx of Anesthesia Complications History of PONV No Motion Sickness Screening History of Motion Sickness: No Social History Smoking Status: Never smoker Hx Alcohol Use: No Hx Substance Use: No Physical Exam Vital Signs Last Vital Signs Temp 37.0 C 05/21/18 04:20 Pulse 64 05/21/18 04:20 Resp 16 05/21/18 04:20 BP 110/67 05/21/18 04:20 Pulse Ox 91 05/21/18 04:20 Testing Electrocardiogram Date: 05/20/18 Findings: + SB @ (52) Sinus bradycardia with sinus arrhythmia Echocardiogram Date: 05/20/18 EF: 60-65% Other Findings: + LVH (mild) Laboratory Results 05/21/18 05:28 05/21/18 05:28 Urine Color Yellow 05/20/18 13:30 Urine Appearance Cloudy (Clear) H 05/20/18 13:30 Urine pH 5.0 (4.5-7.5) 05/20/18 13:30 Ur Specific [place] 1.016 (1.000-1.030) 05/20/18 13:30 Urine Protein Negative (Negative) 05/20/18 13:30 Urine Glucose (UA) Negative (Negative) 05/20/18 13:30 Urine Ketones Negative (Negative) 05/20/18 13:30 Urine Nitrite Negative (Negative) 05/20/18 13:30 Ur Leukocyte Esterase Negative (Negative) 05/20/18 13:30 Urine WBC (Auto) 1-5 /hpf (0-5) 05/20/18 13:30 Urine RBC (Auto) 0-4 /hpf (0-4) 05/20/18 13:30 U Hyaline Cast (Auto) 1-5 /lpf (0-5) 05/20/18 13:30 U Epithel Cells (Auto) >30 /lpf (0-5) H 05/20/18 13:30 Urine Bacteria (Auto) Negative (Negative) 05/20/18 13:30
[2018-05-21 05:56] LABS: Basophils # (auto) 0.02 K/uL (0-0.2); Basophils % (auto) 0.3 %; Eosinophils % (auto) 1.6 %; Hematocrit (blood only) 34.9 % (37-47); Hemoglobin 11.2 g/dL (12.0-16.0); Lymphocytes # (auto) 1.75 K/uL (1.2-3.4); Lymphocytes % (auto) 28.6 %; Mean Corpuscular Hgb Conc 32.1 g/dL (32-36); Mean Corpuscular Volume 86.8 fL (80-100); Mean Platelet Volume 9.9 fL (7.4-10.4); Monocytes # (auto) 0.53 K/uL (0.11-0.59); Monocytes % (auto) 8.7 %; Neutrophils # (auto) 3.71 K/uL (1.4-6.5); Neutrophils % (auto) 60.8 %; Platelet Count 195 K/uL (130-400); RDW Coefficient of Variation 14.8 % (11.5-14.5); RDW Standard Deviation 47.1 fL (36.4-46.3); Red Blood Count 4.02 M/uL (4.2-5.4); White Blood Count 6.11 K/uL (4.8-10.8)
[2018-05-21 06:23] LABS: BUN Creatinine Ratio 7.5 (10-20); Calcium 7.8 mg/dl (8.5-10.1); Creatinine Clr Calc Pharmacy 61.5 ml/min; Est GFR (African American) 64.6; Est GFR (Non-African American) 55.8; Magnesium 1.7 mg/dl (1.8-2.4); Potassium 3.7 mmol/L (3.5-5.1)
[2018-05-21] MEDS ORDERED: PROPOFOL IV EMULSION 10 MG/ML 20 ML VIAL IV ONE (08:00)
[2018-05-21] MEDS ORDERED: LIDOCAINE HCL 2% 2 ML VIAL/AMP(20MG/ML) INFIL ONE (08:00)
[2018-05-21] MEDS ORDERED: ROCURONIUM BROMIDE 10 MG/ML 5 ML VIAL ONE (08:00)
[2018-05-21] MEDS ORDERED: fentaNYL citrate 100 MCG/2 ML VIAL IV PRN (08:01)
[2018-05-21] MEDS ORDERED: ePHEDrine sulfate 50 MG/ML AMP IV PRN (08:01)
[2018-05-21] MEDS ORDERED: ONDANSETRON INJ 2 MG/ML 2 ML VIAL IV PRN ×2 (08:01→18:04)
[2018-05-21] MEDS ORDERED: ATROPINE SULFATE 0.1 MG/ML 10ML SYR IV PRN (08:01)
[2018-05-21] MEDS ORDERED: MIDAZOLAM HCL 1 MG/ML 2ML VIAL ONE (08:08)
[2018-05-21] MEDS ORDERED: fentaNYL citrate 100 MCG/2 ML VIAL ONE ×3 (08:08→10:23)
--- NOTE | 2018-05-21 08:24 | History & Physical Bridge Note ---
Date of Service May 21, 2018 History & Physical Bridge Note I have examined the patient, reviewed the History & Physical and in the interval since the performance of the History & Physical I have noted the following changes of clinical significance: no changes noted
[2018-05-21] MEDS ORDERED: HEPARIN (PORCINE) 1000 UNIT/ML 10 ML (CATH LAB USE ONLY) ONE (08:53)
[2018-05-21] MEDS ORDERED: BUPIVACAINE 0.5 % 5 MG/1 ML MPF 30ML VIAL ONE (08:54)
[2018-05-21] MEDS ORDERED: CEFAZOLIN 250 MG/ML 1 GM VIAL ONE (08:54)
[2018-05-21] MEDS ORDERED: DEXAMETHASONE SOD INJ 4 MG/ML VIAL ONE (10:23)
[2018-05-21] MEDS ORDERED: NEOSTIGMINE METHYLSULFATE 1 MG/ML 10ML VIAL ONE (10:49)
[2018-05-21] MEDS ORDERED: ONDANSETRON INJ 2 MG/ML 2 ML VIAL ONE (10:49)
[2018-05-21] MEDS ORDERED: GLYCOPYRROLATE 0.2 MG/ML VIAL ONE (10:49)
[2018-05-21] MEDS ORDERED: ALBUTEROL HFA INHALER 8.5 GM ONE (11:02)
--- NOTE | 2018-05-21 11:14 | Post Operative Brief Note ---
Immediate Post Op Note v1 Date of Surgery May 21, 2018 Pre & Post Diagnosis Operation Date: 05/21/18 08:35 Pre-Op Diagnosis: acute cholecystitis Post-Op Diagnosis: acute cholecystitis Procedure Operation Date: 05/21/18 08:35 Actual Procedures p Laparoscopic Cholecystectomy(Not Applicable) - Dennis Parker MD Surgeon Dennis Parker MD Equipment Operator Mikaela Cisneros PA-C Estimated Blood Loss 10 Findings Consistent with Post-Op Diagnosis Specimens Gallbladder and contents Anesthesia Type General Complications none
--- NOTE | 2018-05-21 12:27 | Anesthesiology Progress Note ---
Date of Service May 21, 2018 Anesthesia Post Procedure Vital Signs Vital Signs: Temp Pulse Pulse Pulse Resp BP BP 05/21/18 12:13 51 L 14 150/55 H 05/21/18 12:00 55 L 18 143/53 H 05/21/18 11:50 37.0 C 74 20 145/55 H 05/21/18 08:14 36.8 C 68 16 115/51 L 05/21/18 07:20 62 05/21/18 04:20 37.0 C 64 16 110/67 05/20/18 23:48 66 05/20/18 23:28 36.8 C 57 L 16 104/67 05/20/18 20:20 36.7 C 54 L 18 108/65 05/20/18 16:00 65 05/20/18 15:01 37.1 C 61 22 120/55 L Pulse Ox 05/21/18 12:13 93 05/21/18 12:00 92 05/21/18 11:50 93 05/21/18 08:14 88 L 05/21/18 07:20 05/21/18 04:20 91 05/20/18 23:48 05/20/18 23:28 92 05/20/18 20:20 92 05/20/18 16:00 05/20/18 15:01 93 Pain Intensity Right Abdomen: Pain Intensity: 2 Notes Mental Status: alert / awake / arousable and participated in evaluation Patient Amnestic to Procedure: Yes Nausea / Vomiting: adequately controlled Pain: adequately controlled Airway Patency, RR, SpO2: stable & adequate BP & HR: stable & adequate Hydration State: stable & adequate Anesthetic Complications: no major complications apparent and Pt Satisfied with anesthetic care Notes: When patient came to preop, she was noted to have SpO2 around 90%. Patient was placed on oxygen. CTA b/l. Denies cough, chest pain, SOB. CXR no obvious s/s of lung pathology. Patient in recovery had SpO2 of 94% on NC oxygen. Decided to keep patient on oxygen on the floor and will order continuous pulse oximetry.
[2018-05-21] MEDS ORDERED: OXYCODONE/ACETAMINOPHEN 5mg/325mg TAB PO PRN (13:06)
[2018-05-21] MEDS ORDERED: MoRPHine SULFATE 4 MG/ML 1 ML CARP\\VIAL IV PRN (13:06)
--- NOTE | 2018-05-21 18:02 | Hospitalist Progress Note ---
Date of Service May 21, 2018 Assessment & Plan (1) Biliary colic: Biliary colic secondary to gallstones (cholelithiasis) Abdominal ultrasound showing distended gallbladder with multiple stones measuring up to 29 mm General surgery service started patient on IV Zosyn on 05/20/18 s/p Laparoscopic Cholecystectomy on 05/21/18 Continue pain management as needed, IV Zofran, IV antiemetics as needed for nausea General surgery service have ordered a diet for the patient post-op 05/20/18 Cardiology service was asked to evaluate patient presented to the emergency room where she was noted to be bradycardic on monitor with occasional ventricular ectopic beats which was misinterpreted as run of ventricular tachycardia -EKG revealed sinus bradycardia without acute changes; Troponins negative x3; No evidence of ischemia with normal LV systolic function on echocardiogram and normal troponin levels;Telemetry reviewed revealed occasional ventricular ectopic beats, artifact, no ventricular arrhythmias; as per cardiology service, patient had Ventricular ectopic beats that appeared to be secondary to acute presentation illness -currently Sinus bradycardia: Auditory impairments Patient has auditory impairments but able to read lips and respond verbally and appropriately. Deep venous thrombosis prophylaxis, SCDs Full Code [place] [phone] Subjective Biliary colic secondary to gallstones (cholelithiasis)and s/p laproscopic Cho lecystectomy Patient tolerating any postop discomfort. she denies other problems such as chest pain or of having shortness of breath. Physical Exam Vital Signs (Past 24 Hours): Last Vital Signs Temp 36.8 C 05/21/18 16:45 Pulse 53 L 05/21/18 16:45 Resp 16 05/21/18 16:45 BP 148/76 H 05/21/18 16:45 Pulse Ox 94 05/21/18 16:45 Constitutional: WD/WN, vitals as above Eyes: PERRL, conjunctivae normal, anicteric sclerae EOM intact bilaterally ENMT: external ear and nose normal, oropharynx normal Respiratory: normal respiratory effort, lungs clear to auscultation Cardiovascular: RRR, no murmur, no edema Gastrointestinal (Abdomen): Inspection/Auscultation: normal bowel sounds abdomen is soft and has dressing over laproscopi site Musculoskeletal: no cyanosis or clubbing, extremities motor strength 5/5 Head/Neck/Chest: normocephalic and head atraumatic Neurologic: PERRL, EOMI, accommodation nl, no face palsy, no dysarthria CN's II-XI intact bilaterally Psychiatric: A+Ox3, euthymic affect
[2018-05-22] MEDS: PIPERACILLIN/TAZOBACTAM 3.375 GM in DEXTROSE 5% 100 ML IV SCH ×2 (03:45→11:43)
[2018-05-22] MEDS: SODIUM CHLORIDE 0.9% 1000ML 1,000 ML IV SCH ×2 (03:45→11:43)
--- NOTE | 2018-05-22 04:23 | Operative Report ---
DATE OF OPERATION: 05/21/2018 PREOPERATIVE DIAGNOSES: Acute cholecystitis, cholelithiasis. POSTOPERATIVE DIAGNOSES: Acute cholecystitis, cholelithiasis. PROCEDURE: Laparoscopic cholecystectomy. SURGEON: Dennis Parker MD PENSION EXAMINER: Mikaela Cisneros PA-C FINDINGS: Gallbladder was dilated. The wall was mildly thickened. There was a lot of edema in the tissue surrounding the cystic duct and the triangle of Calot area. The gallbladder was somewhat adherent to the gallbladder bed of the liver. There were multiple stones within the lumen of the gallbladder. The liver was of normal size and contour and the visible bowel appeared normal. TECHNIQUE: The patient was given a general anesthetic and the area prepped and draped in usual sterile fashion. Transverse incision was made above the umbilicus, carried down to the subcutaneous tissue to the fascia, which was grasped with 2 Christopher clamps and incised between. The peritoneum was incised and introducer was placed bluntly. The abdomen was then insufflated to a pressure of 15 mmHg with carbon dioxide. The upper midline, midclavicular and anterior axillary introducers were placed under direct vision through small skin incisions. Traction was placed in the fundus of the gallbladder. There were adhesions of the omentum to the anterior wall of the gallbladder, which were taken down using blunt and cautery dissection where appropriate. Further dissection was carried down towards the infundibulum, where there were adhesions of the duodenum. These were flimsy and were taken down using blunt and sharp dissection. No cautery dissection was used in taking those adhesions down. Once that was freed, the infundibulum and neck of the gallbladder were identified. This was elevated and the peritoneum was opened on the lateral side. This was peeled down towards the common bile duct and then opened over the infundibulum into the triangle of Calot, which was opened. The gallbladder was dissected away from the liver on the lateral medial sides, allowing for better mobilization of the infundibulum. Further dissection of thickened lymphatics and connective tissue were peeled until I was able to identify the cystic duct. This was skeletonized on the medial side as well as the lateral side. I was able to establish a plane in the posterior side. I skeletonized again isolating it. I then placed inferior traction on the neck and dissected further in the triangle of Calot and identified the cystic duct lymph node. This was isolated and its feeding lymphatics were clamped and divided. That allowed better visualization, posterior to that where the cystic artery was identified. Three clips were placed on the proximal cystic duct, 1 near the gallbladder junction and it was divided. That allowed me to further visualize the cystic artery, which was then able to be isolated and clipped twice proximally and once near the gallbladder and divided. There was a large lymphatic or a posterior branch of the artery lying lateral to that and that was clamped and divided as well. The gallbladder was peeled off the liver bed using electrocautery. This required careful meticulous dissection in areas. There was not a good plane due to the inflammatory process. Once the gallbladder was freed, it was placed into an Endobag and brought out through the upper midline incision, where I had to open the gallbladder on the outside and remove the bile and remove the stones before I could extract it within the bag, but that was accomplished. That introducer was replaced and liver edge was elevated. The subdiaphragmatic and subhepatic spaces were irrigated. The irrigation was removed. Any bleeding or oozing from the gallbladder bed of the liver during that dissection was removed. There were 2 areas of oozing from the gallbladder bed of the liver that were easily controlled with cautery. Further irrigation was performed, irrigation was removed and that was repeated until the return was clear. The gallbladder bed of the liver was again inspected. There was no further bleeding. The previously placed clips were inspected and were intact. There was a fall back into its anatomic position and the gas was allowed to escape from the abdomen. The introducers were removed and the fascia of the umbilical and upper midline introducer sites were closed with interrupted 3-0 Vicryl. Skin of all the incisions was closed with 4-0 Monocryl in either an interrupted or running subcuticular fashion. The skin, which had been anesthetized prior to the incisions was re-anesthetized with 0.5% Marcaine. The skin was cleansed, dried, benzoin placed, Steri-Strips applied. Estimated blood loss was 10 mL. Sponge, needle and instrument counts were correct prior to closure. The patient tolerated the surgical procedure without complication and was transferred to recovery. I attest to the content of the Intraoperative Record and any orders documented therein. Any exception s are noted below.
--- NOTE | 2018-05-22 11:19 | Anesthesiology Progress Note ---
Date of Service May 22, 2018 Anesthesia Post Procedure Vital Signs Vital Signs: Temp Pulse Pulse Resp BP BP Pulse Ox 05/22/18 08:44 36.6 C 76 16 116/57 L 92 05/22/18 03:36 36.7 C 55 L 20 132/71 93 05/22/18 00:10 36.7 C 54 L 20 103/54 L 91 05/21/18 19:29 36.7 C 61 18 144/72 H 91 05/21/18 16:45 36.8 C 53 L 16 148/76 H 94 05/21/18 16:00 53 L 05/21/18 15:45 36.8 C 53 L 16 154/75 H 92 05/21/18 15:05 36.6 C 93 H 20 117/69 93 05/21/18 14:45 36.8 C 52 L 16 142/75 H 94 05/21/18 14:15 36.7 C 56 L 16 152/79 H 95 05/21/18 13:45 36.7 C 57 L 16 148/82 H 94 05/21/18 13:30 36.8 C 48 L 16 154/83 H 94 05/21/18 13:15 36.9 C 47 L 16 145/79 H 93 05/21/18 13:00 36.7 C 48 L 16 156/64 H 90 05/21/18 12:45 52 L 18 151/61 H 94 05/21/18 12:30 36.8 C 50 L 15 153/59 H 94 05/21/18 12:20 36.8 C 55 L 16 143/61 H 93 05/21/18 12:10 51 L 14 150/55 H 93 05/21/18 12:00 55 L 18 143/53 H 92 05/21/18 11:50 37.0 C 74 20 145/55 H 93 Pain Intensity Right Abdomen: Pain Intensity: 2 Notes Notes: patient sleeping.
--- NOTE | 2018-05-22 11:22 | Surgery Progress Note ---
Date of Service May 22, 2018 Assessment & Plan (1) Acute cholecystitis: POD # 1 s/p laparoscopic cholecystectomy - vitals stable, afebrile - preop pain resolved, post op pain minimal at incisions controlled - no nausea or vomiting, tolerated diet Plan: Okay from surgical standpoint for discharge today Discharge instructions reviewed Rx for Percocet prn pain f/u surgical office in [address] Parker has seen and examined pt agrees with above Subjective feeling good abdominal soreness at incisions and right shoulder pain no nausea or vomiting, tolerated regular diet for dinner and breakfast no shortness of breath Physical Exam Vital Signs (Past 24 Hours): Last Vital Signs Temp 36.6 C 05/22/18 08:44 Pulse 76 05/22/18 08:44 Resp 16 05/22/18 08:44 BP 116/57 L 05/22/18 08:44 Pulse Ox 92 05/22/18 08:44 Constitutional: WD/WN, vitals as above no acute distress and not ill appearing Respiratory: no respiratory distress Gastrointestinal (Abdomen): Inspection/Auscultation: abdomen not distended Percussion/Palpation: + abdomen tender (at incision sites appropriate post op) and abdomen soft; no guarding and abdomen not rigid Skin: no rashes, warm and dry + incision (covered with dry dressings) Psychiatric: A+Ox3, euthymic affect
[2018-05-22] MEDS ORDERED: MAGNESIUM OXIDE 400 MG TAB PO SCH (12:15)
--- NOTE | 2018-05-22 12:22 | Hospitalist Progress Note ---
Date of Service May 22, 2018 Assessment & Plan (1) Biliary colic: Biliary colic: Biliary colic secondary to gallstones (cholelithiasis) Abdominal ultrasound showing distended gallbladder with multiple stones measuring up to 29 mm General surgery service started patient on IV Zosyn on 05/20/18 for concern of acute cholecystitis secondary to the cholelithiasis s/p Laparoscopic Cholecystectomy on 05/21/18 General surgery service have ordered a diet for the patient post-op have discussed with General surgery since the patient doing well clinically that Zosyn can be stopped. There does not seem to be an indication to continue as oral antibiotics at this time since gallbladder has been removed and patient doing well clinically Discharge to HOME Patient should take magnesium 400 mg daily for 10 days Patient should follow up with a primary care medical doctor and get repeat blood work including serum magnesium levels Patient also given prescription of oxycodone/acetaminophen (Percocet 5/325 mg tablet) every 4 hours as needed for pain by general surgery service Patient should follow the general surgery instructions Post-Surgical ~Discharge Instructions Activity Recommendations: - lifting limitation: (10 pounds for 2 weeks), - exercise/sex/sports limit: (nonstrenuous for 2 weeks), - driving or machine use limit: (none for 1 week), - Shower/bathe limit: (may shower beginning tomorrow) Diet: - Resume previous diet SPECIAL CARE INSTRUCTIONS: - May shower in 24 hours. Let water run over area and pat dry. - Leave steri strips on for one week. - Call the surgeon's office with any questions or concerns - - (ex. temperature higher than 101 degrees F, excessive bleeding or pain). MEDICATIONS: - Resume previous medications unless instructed otherwise by your surgeon. - Ibuprofen 600 mg every 6 hours with food - Percocet 1 every 4 hours, as needed for pain FOLLOW UP VISIT: - If not already scheduled, please call the office to schedule a two week follow-up appointment. Office number 05/20/18 Cardiology service was asked to evaluate patient presented to the emergency room where she was noted to be bradycardic on monitor with occasional ventricular ectopic beats which was misinterpreted as run of ventricular tachycardia -EKG revealed sinus bradycardia without acute changes; Troponins negative x3; No evidence of ischemia with normal LV systolic function on echocardiogram and normal troponin levels;Telemetry reviewed revealed occasional ventricular ectopic beats, artifact, no ventricular arrhythmias; as per cardiology service, patient had Ventricular ectopic beats that appeared to be secondary to acute presentation illness -currently Sinus bradycardia: Hypomagnesemia last serum magnesium was 1.7 oral magnesium ordered Patient should take magnesium 400 mg daily for 10 days Auditory impairments Patient has auditory impairments but able to read lips and respond verbally and appropriately. Deep venous thrombosis prophylaxis, SCDs Full Code [place] [phone] Discharge Diagnosis Biliary colic secondary to gallstones (cholelithiasis), acute cholecystitis secondary to the cholelithiasis, s/p Laparoscopic Cholecystectomy on 05/21/18 , Hypomagnesemia Subjective Patient is eating at the bedside. no acute abdominal discomfort. Patient denies chest pain or shortness of breath. No vomiting. Physical Exam Vital Signs (Past 24 Hours): Last Vital Signs Temp 36.6 C 05/22/18 11:43 Pulse 57 L 05/22/18 11:43 Resp 18 05/22/18 11:43 BP 121/67 05/22/18 11:43 Pulse Ox 92 05/22/18 11:43 Constitutional: WD/WN, vitals as above Eyes: PERRL, conjunctivae normal, anicteric sclerae EOM intact bilaterally ENMT: external ear and nose normal, oropharynx normal Neck: trachea midline, no thyromegaly Respiratory: normal respiratory effort, lungs clear to auscultation Cardiovascular: RRR, no murmur, no edema Gastrointestinal (Abdomen): Percussion/Palpation: abdomen soft (bowel sounds present, dressing over the surgical incisions) Musculoskeletal: Head/Neck/Chest: normocephalic and head atraumatic Neurologic: PERRL, EOMI, accommodation nl, no face palsy, no dysarthria CN's II-XI intact bilaterally
--- NOTE | 2018-05-22 12:33 | Discharge Summary ---
Date of Service May 22, 2018 Admission HPI Per Admitting Provider HISTORY OF PRESENT ILLNESS: This is a 58-year-old female with no significant past medical history and not on medication at home, presents with chest pain and nausea and vomiting. The patient says that she was awoken from the sleep because of the lower part of the chest pain, 8/10 in severity, radiating to back, associated with nausea and she vomited for about 2 hours and she came to the ER. In the ER, she was also found to have some tenderness in the right upper quadrant region and gallbladder ultrasound shows some gallstones. She received pain medications 2 doses. She states she still has some chest pain in the lower part of chest, this pain is more when taking deep breath. The patient is hard of hearing. Her is helping with history. Otherwise, tdband says patient is fine and she can climb steps and walk fine. No tobacco abuse or alcohol abuse. Denies any headache, no sore throat, no difficulty swallowing. When this episode happened, she was short of breath. Denies any cough. No fevers, but feeling cold. Normal bowel and bladder movements. The patient is also bradycardic in the ER. ALLERGIES: DIPHENHYDRAMINE, NAPROXEN, ZOLOFT, SULFA ANTIBIOTICS, TRAMADOL. PAST MEDICAL HISTORY: As mentioned above. PAST SURGICAL HISTORY: Partial left hip replacement, partial hysterectomy, cervical spine surgery. MEDICATIONS: None. FAMILY HISTORY: Significant for father and mother, of natural causes. SOCIAL HISTORY: , lives with her . No smoking, no alcohol, no drug use. REVIEW OF SYMPTOMS: As per HPI. Rest of review of symptoms is negative. Admission Exam Per Admitting Provider PHYSICAL EXAMINATION: GENERAL: The patient is moderate built, not in acute distress. VITAL SIGNS: Temperature 36.3, pulse 48, respiratory rate 18, blood pressure 114/68, oxygen 95% on 2 liters. HEENT: No pallor, no icterus. Pupils equal, round react to light. Oral mucosa dry. NECK: No JVD or neck masses, no carotid bruits. CARDIOVASCULAR: S1, S2 heard. Bradycardia. No murmurs. RESPIRATORY SYSTEM: Normal AP diameter. No accessory muscle use. No wheezing, no crackles. ABDOMEN: Soft, bowel sounds present. Tenderness in right upper quadrant region. No guarding, no rigidity. No distention. CENTRAL NERVOUS SYSTEM: Cranial nerves II-XII grossly intact. Nonfocal. EXTREMITIES: No edema, no erythema. Principal Diagnosis Biliary colic secondary to gallstones (cholelithiasis), acute cholecystitis secondary to the cholelithiasis, s/p Laparoscopic Cholecystectomy on 05/21/18 , Hypomagnesemia Discharge Exam Constitutional WD/WN, vitals as above Eyes PERRL, conjunctivae normal, anicteric sclerae EOM intact bilaterally ENMT external ear and nose normal, oropharynx normal Neck trachea midline, no thyromegaly Respiratory normal respiratory effort, lungs clear to auscultation Cardiovascular RRR, no murmur, no edema Gastrointestinal (Abdomen) Inspection/Auscultation: normal bowel sounds Percussion/Palpation: abdomen soft (bowel sounds present, dressing over the surgical incisions) Musculoskeletal no cyanosis or clubbing, extremities motor strength 5/5 Head/Neck/Chest: normocephalic and head atraumatic Neurologic PERRL, EOMI, accommodation nl, no face palsy, no dysarthria CN's II-XI intact bilaterally Psychiatric A+Ox3, euthymic affect Discharge Data Allergies Allergy/AdvReac Type Severity Reaction Status Date / Time diphenhydramine Allergy Severe THROAT Verified 05/20/18 03:05 SWELLS, CAN'T BREATHE naproxen Allergy Severe THROAT Verified 05/20/18 03:05 SWELLS, CAN'T BREATHE sertraline Allergy Severe THROAT Verified 05/20/18 03:05 SWELLS, CAN'T BREATHE Sulfa (Sulfonamide Allergy Severe THROAT Verified 05/20/18 03:05 Antibiotics) SWELLS, CAN'T BREATHE tramadol Allergy Severe THROAT Verified 05/20/18 03:05 SWELLS, CAN'T BREATHE Consultations 05/20/18 04:39 ED Decision to Admit Stat 05/20/18 08:00 Consult Cardiology Routine Consult General Surgery Routine Procedures Performed Operation Date: 05/21/18 08:35 Actual Procedures p Laparoscopic Cholecystectomy(Not Applicable) - Dennis Parker MD Ordered Studies 05/20/18 03:00 gallbladder Urgent Hospital Course (1) Biliary colic: Biliary colic: Biliary colic secondary to gallstones (cholelithiasis) Abdominal ultrasound showing distended gallbladder with multiple stones measuring up to 29 mm General surgery service started patient on IV Zosyn on 05/20/18 for concern of acute cholecystitis secondary to the cholelithiasis s/p Laparoscopic Cholecystectomy on 05/21/18 General surgery service have ordered a diet for the patient post-op have discussed with General surgery since the patient doing well clinically that Zosyn can be stopped. There does not seem to be an indication to continue as oral antibiotics at this time since gallbladder has been removed and patient doing well clinically Discharge to HOME Patient should take magnesium 400 mg daily for 10 days Patient should follow up with a primary care medical doctor and get repeat blood work including serum magnesium levels Patient also given prescription of oxycodone/acetaminophen (Percocet 5/325 mg tablet) every 4 hours as needed for pain by general surgery service Patient should follow the general surgery instructions Post-Surgical ~Discharge Instructions Activity Recommendations: - lifting limitation: (10 pounds for 2 weeks), - exercise/sex/sports limit: (nonstrenuous for 2 weeks), - driving or machine use limit: (none for 1 week), - Shower/bathe limit: (may shower beginning tomorrow) Diet: - Resume previous diet SPECIAL CARE INSTRUCTIONS: - May shower in 24 hours. Let water run over area and pat dry. - Leave steri strips on for one week. - Call the surgeon's office with any questions or concerns - - (ex. temperature higher than 101 degrees F, excessive bleeding or pain). MEDICATIONS: - Resume previous medications unless instructed otherwise by your surgeon. - Ibuprofen 600 mg every 6 hours with food - Percocet 1 every 4 hours, as needed for pain FOLLOW UP VISIT: - If not already scheduled, please call the office to schedule a two week follow-up appointment. Office number 05/20/18 Cardiology service was asked to evaluate patient presented to the emergency room where she was noted to be bradycardic on monitor with occasional ventricular ectopic beats which was misinterpreted as run of ventricular tachycardia -EKG revealed sinus bradycardia without acute changes; Troponins negative x3; No evidence of ischemia with normal LV systolic function on echocardiogram and normal troponin levels;Telemetry reviewed revealed occasional ventricular ectopic beats, artifact, no ventricular arrhythmias; as per cardiology service, patient had Ventricular ectopic beats that appeared to be secondary to acute presentation illness -currently Sinus bradycardia: Hypomagnesemia last serum magnesium was 1.7 oral magnesium ordered Patient should take magnesium 400 mg daily for 10 days Auditory impairments Patient has auditory impairments but able to read lips and respond verbally and appropriately. Deep venous thrombosis prophylaxis, SCDs Full Code fransisca Alonzo [phone] Discharge Diagnosis Biliary colic secondary to gallstones (cholelithiasis), acute cholecystitis secondary to the cholelithiasis, s/p Laparoscopic Cholecystectomy on 05/21/18 , Hypomagnesemia Total Time Total Time Spent Total Time Spent (In Minutes): 40 minutes Total Time Includes: Examination of the Patient, Discharge Planning and Medication Reconciliation Discharge Plan Discharge Items Patient Disposition: Home - Self-Care Reason For Visit: CHEST PAIN, NAUSEA / VOMITING Discharge Diagnosis: Biliary colic secondary to gallstones (cholelithiasis), acute cholecystitis secondary to the cholelithiasis, s/p Laparoscopic Cholecystectomy on 05/21/18 , Hypomagnesemia Condition: Good Discharge Goals: Decrease discomfort and Improve disease control Activity: Per 'Additional Instructions' section Non-emergency contact: Primary Care Provider and Surgeon Call non-emergency contact if: you have any medication questions Follow-up/Referrals: PCP,NO [Primary Care Provider] - Diet: Regular Addtl Provider Instructions: Discharge to HOME Patient should take magnesium 400 mg daily for 10 days Patient should follow up with a primary care medical doctor and get repeat blood work including serum magnesium levels Patient also given prescription of oxycodone/acetaminophen (Percocet 5/325 mg tablet) every 4 hours as needed for pain by general surgery service Patient should follow the general surgery instructions Post-Surgical ~Discharge Instructions Activity Recommendations: - lifting limitation: (10 pounds for 2 weeks), - exercise/sex/sports limit: (nonstrenuous for 2 weeks), - driving or machine use limit: (none for 1 week), - Shower/bathe limit: (may shower beginning tomorrow) Diet: - Resume previous diet SPECIAL CARE INSTRUCTIONS: - May shower in 24 hours. Let water run over area and pat dry. - Leave steri strips on for one week. - Call the surgeon's office with any questions or concerns - - (ex. temperature higher than 101 degrees F, excessive bleeding or pain). MEDICATIONS: - Resume previous medications unless instructed otherwise by your surgeon. - Ibuprofen 600 mg every 6 hours with food - Percocet 1 every 4 hours, as needed for pain FOLLOW UP VISIT: - If not already scheduled, please call the office to schedule a two week follow-up appointment. Office number Prescriptions: New oxycodone-acetaminophen [Percocet] 5-325 mg Tablet 1 tab PO Q4H PRN (Reason: pain) Qty: 18 RF: 0 magnesium oxide 400 mg (241.3 mg magnesium) Tablet 400 mg PO DAILY 10 Days Qty: 10 RF: 0 Continued No Known Home Medications RF: 0 Stand-Alone Forms: Call Back Authorization, [facility] Discharge Orders: Discharge Order (Routine); Ordered 05/22/18 Ordered By: Delfino Randall Admission Data Admit Date/Time: 05/20/18 05:09 Attending Provider: Delfino Randall Admit Provider: Henrique Morelos Primary Care Provider: PCP,NO Other Providers: Henrique Morelos ; Leo Harvey ; Marciano Wilburn ; Joe Alarcon ; Berto Fisher ; Robert Das ; Dennis Doe ; Marielos Harmon ; Mery Hyde ; Dennis Parker ; Tiki Brambila ; Esther Ortega ; Berto West ; Damon Harrison ; Nga Tapia ; Lloyd Taylor ; Robert Garcia ; Mansi Perrin ; Luis Miguel Tian ; Mikaela Cisneros ; Reuben Mendez Jr ; Tino Thomas ; Winifred Flores Service: Telemetry Other Pending Studies at Discharge: Yes (Gallbladder pathology, will be reviewed at follow-up visit)
[2018-05-23] MEDS ORDERED: MAGNESIUM OXIDE 400 MG TAB PO SCH (09:00)
== END 2018-05-22 13:18 | disposition home or self-care (01) | DRG 419 ==
LOC: ED 02:37 → 2S 05:09
DX: R11.2 Nausea with vomiting, unspecified; R07.9 Chest pain, unspecified; E83.42 Hypomagnesemia; K80.42 Calculus of bile duct with acute cholecystitis without obstruction

== ENCOUNTER 2023-11-11 10:30 | Inpatient (IN) ==
--- NOTE | 2023-11-11 11:07 | Emergency Department Note ---
Impression & Plan Dizziness, Nausea & vomiting ED Provider Note NAME: MARY ESCOBAR AGE: 63 SEX: Female INFORMANT: Patient and ED PROVIDER(S): Santino Leija MD CHIEF COMPLAINT: Dizziness PLAN: Disposition: Admitted Outpatient prescription management: None Referral: MEDICAL DECISION MAKING: Patient presented because of acute onset of dizziness, nausea and vomiting. Patient was hard of hearing and history was somewhat difficult. was present and helps with history. On physical examination patient had a slight right-sided facial droop appreciated and rotatory nystagmus. She was quite symptomatic. She had an IV already established and was given 0.5 mg of Ativan and 4 mg of Zofran for symptom control. Given last well-known time within therapeutic window I promptly contacted the auto travel counselor to initiate a stroke alert and also to call for neurology consult. I did notify the hospital pharmacy for possible thrombolytics. An i-STAT was performed due to the patient's lack of primary care and to establish electrolytes and renal function. Patient's creatinine is acceptable at 0.7. Patient was taken emergently to imaging for CT and CT angiography. I did review the patient's imaging with Dr. Howell of radiology. There was possible plaque noted in the left subclavian otherwise there were no acute intracranial findings noted. Discussed the patient's presentation and history with Dr. Sam of [facility]. In light of the physical findings and history he recommended proceeding with TNK administration. He did logon and evaluated the patient via telestroke. He did verbally consent the patient and for TNK administration. I was present for this conversation and confirmed with the patient and . The patient has no contraindications. Patient and in agreement. TNK was administered after timeout and standard protocol. Due to the patient's symptoms she was given additional dose of Zofran and was also given 2.5 mg of Valium. Patient was frequently reassessed. She did have improvement of symptoms. Clinically she did look better. Vital signs remained stable. Telestroke did recommend admission to the ICU and MRI tomorrow. Due to the findings in the left subclavian we also discussed duplex imaging by ultrasound on admission. Telestroke also recommended atorvastatin after swallowing study evaluation. I did consult with Dr. hogde of the [facility] hospitalist service. Did review the findings and telestroke recommendations for admission and workup. [facility] will admit the patient. Patient had her case discussed with critical care, Dr. levin and the patient will be excepted into the ICU for post TNK stroke protocol. Care/management discussed with: Case management, telestroke, critical care, radiology Level of care consideration(s): After review of the information above and other included data, I feel the patient requires escalation of care to admission Triage Nursing notes: reviewed and agree them. Vital Signs: reviewed and remarkable for mild hypertension Additional History obtained from: Patient's . Patient was in normal state of health yesterday and today. He noted abrupt onset of symptoms at 10 AM. Chronic Medical/Social Conditions affecting care: Extremely hard of hearing Prior/ Outside/ External records reviewed: none Differential Diagnosis: CVA, TIA,Benign positional vertigo, dehydration, hypovolemia, anemia, tumor, infection, hypoglycemia, electrolyte abnormalities, cardiac sources, intracerebral event, toxicologic, neurologic, as well as other pathologies. Diagnostics, independently interpreted by me: ECG: Twelve-lead ECG was sinus bradycardia at [address] elevation or depression. Cardiac Monitoring: Cardiac monitoring ordered by me: The patient was placed on continuous cardiac monitoring and observed. It revealed a normal sinus rhythm at 64 beats per minute without ectopy or evidence of dysrhythmia. Medical decision rules: none Imaging studies: Chest x-ray. Findings: A chest x-ray was performed and revealed no pneumothorax, effusion, infiltrate, pulmonary edema, free air under the diaphragm, or wide mediastinum. Impression: No acute disease. HPI: 63 year old Female arrives for evaluation of dizziness. This started this morning and is persisting. The patient also notes the following associated symptoms, nausea, vomiting, SOB, chest pain. The patient has taken no medications relieving factors. Current pain is rated as 5/10. No prior history of same. Started when she turned her head to get out of a vehicle. Pt denies LOC, headache, fevers, chills, diaphoresis, visual changes, neck pain, abdominal pain, back pain, melena, hematochezia, urinary symptoms, numbness, weakness, lymphadenopathy, rash, or other complaints. PAST MEDICAL HISTORY: See Below, PAST SURGICAL HISTORY: See Below, hip SOCIAL HISTORY: See Below, HOME MEDICATIONS: See Below ALLERGIES: See Below VITALS: See Below PHYSICAL EXAMINATION: GENERAL: Awake, alert, ill-appearing, in no distress HENT: Normocephalic, atraumatic. Oropharynx unremarkable. EYES: Normal conjunctiva. Sclera non-icteric. PERRL, EOMI. Severe rotatory nystagmus noted. NECK: Inspection normal. Non-tender. Supple. No nuchal rigidity. FROM. No masses. RESPIRATORY: Clear to auscultation. No wheezes. No rales. Normal respiratory effort. CARDIAC: Normal rate. Normal rhythm. No murmurs. No rubs. Extremities warm and well perfused. Pulses equal. No JVD. GI: Soft, non-distended. No tenderness to palpation. No rebound or guarding. No masses. RECTAL: Deferred. MUSCULOSKELETAL: Atraumatic. Chest examination reveals no tenderness. The back is symmetrical on inspection without obvious abnormality. No joint edema. LOWER EXTREMITIES: Calves are equal size bilaterally and non-tender. No edema. No discoloration. NEURO: Normal sensorium. No sensory deficits noted. Right facial droop is present. Cranial nerves II through XII intact otherwise. The patient has mild drift of the left leg but does not touch the bed. Patient has drift of the right leg. No drift of the upper extremities. Speech normal. [place]. No drift. SKIN: No rash or jaundice noted. PROCEDURES: none CRITICAL CARE: I have personally spent 75 minutes of critical care time in the direct management of this patient. This includes bedside care, interpretation of diagnostic studies, and testing, discussion with consultants, pharmacy, radiology, patient, and family members, and other required patient management activities. These minutes are in excess of all separately billable procedures. OBSERVATION NOTE: none Thrombolytics MDM Reason(s) for Delay: none Past Med/Surg History Problem List (Updated 11/11/23 @ 13:24 by Shanelle Bishop PA-C) Stroke-like symptoms Nausea & vomiting (Acute) Dizziness (Acute) Acute cholecystitis Encounter for pre-operative examination Ventricular ectopic beats Sinus bradycardia Biliary colic (Acute) Medical History (Updated 11/11/23 @ 13:24 by Shanelle Bishop PA-C) No significant past medical history Social History Smoking Status: Never smoker Second Hand Exposure: No; Do You Dip or Chew Tobacco: No; Hx Alcohol Use: No Hx Substance Use: No Preferred Language: Macedonian Communication Ability: Effective 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 Beliefs That Will Affect Care: None Current Living Situation: Spouse Other Information That Helps Us Care for You: No Feels Safe at Home: Yes Safety Concerns: Feels Safe At This Time Assistive Devices: Denture - Upper Allergies Allergies Allergy/AdvReac Type Severity Reaction Status Date / Time diphenhydramine Allergy Severe THROAT Verified 05/20/18 03:05 SWELLS, CAN'T BREATHE naproxen Allergy Severe THROAT Verified 05/20/18 03:05 SWELLS, CAN'T BREATHE sertraline Allergy Severe THROAT Verified 05/20/18 03:05 SWELLS, CAN'T BREATHE Sulfa (Sulfonamide Allergy Severe THROAT Verified 05/20/18 03:05 Antibiotics) SWELLS, CAN'T BREATHE tramadol Allergy Severe THROAT Verified 05/20/18 03:05 SWELLS, CAN'T BREATHE Home Meds Home Medications Medication Instructions Recorded Confirmed No Known Home Medications 05/20/18 11/11/23 Results & Data (ED) Vital Signs Vital Signs - 24 hr 11/11/23 10:35 11/11/23 11:44 11/11/23 12:06 Temperature 36.3 C L Temperature Source Temporal Artery Scan Pulse Rate 64 68 Pulse Rate [Finger] Respiratory Rate 14 Respiratory Effort / Characteristics Respiratory Depth Blood Pressure 146/69 H Blood Pressure [Right Arm] Blood Pressure Mean 94 Blood Pressure Mean [Right Arm] Pulse Oximetry 96 80 L Oxygen Delivery Method Room Air Room Air Nasal Cannula Oxygen Flow Rate 0 Sepsis New/Unexplained Change in Mental Status Yes Sepsis Action Taken by Nursing No Action Required Oxygen Flow Rate - Titration 2 Pulse Oximetry Post Tiitration 97 11/11/23 12:10 11/11/23 12:25 11/11/23 12:40 Temperature Temperature Source Pulse Rate Pulse Rate [Finger] 57 L 59 L 58 L Respiratory Rate 30 H 14 24 Respiratory Effort / Characteristics Non-Labored Spontaneous Respiratory Depth Normal Blood Pressure Blood Pressure [Right Arm] 149/82 H 150/87 H 105/65 Blood Pressure Mean Blood Pressure Mean [Right Arm] 104 108 78 Pulse Oximetry 96 95 94 Oxygen Delivery Method Nasal Cannula Nasal Cannula Nasal Cannula Oxygen Flow Rate 2 2 2 Sepsis New/Unexplained Change in Mental Status Sepsis Action Taken by Nursing Oxygen Flow Rate - Titration Pulse Oximetry Post Tiitration 11/11/23 12:55 11/11/23 13:10 Temperature Temperature Source Pulse Rate Pulse Rate [Finger] 65 54 L Respiratory Rate 18 20 Respiratory Effort / Characteristics Respiratory Depth Blood Pressure Blood Pressure [Right Arm] 125/63 136/78 Blood Pressure Mean Blood Pressure Mean [Right Arm] 83 97 Pulse Oximetry 98 95 Oxygen Delivery Method Nasal Cannula Nasal Cannula Oxygen Flow Rate 2 2 Sepsis New/Unexplained Change in Mental Status Sepsis Action Taken by Nursing Oxygen Flow Rate - Titration Pulse Oximetry Post Tiitration Laboratory Data 11/11/23 10:50 11/11/23 10:50 Lab Results 11/11/23 11/11/23 Range/Units 10:50 11:21 WBC 9.78 (4.8-10.8) K/ul RBC 5.19 (4.20-5.40) M/uL Hgb 14.2 (12.0-16.0) g/dl POC Hgb 14.3 (12.0-16.0) g/dl Hct 43.2 (37.0-47.0) % POC Hct 42 (37-47) % MCV 83.2 (80.0-100.0) fL MCH 27.4 (25.0-34.0) pg MCHC 32.9 (32.0-36.0) g/dL RDW Std Deviation 41.6 (36.4-46.3) fL RDW Coeff of Stuart 13.7 (11.5-14.5) % Plt Count 327 (130-400) K/uL MPV 9.7 (9.4-12.4) fL Immature Gran % (Auto) 1.5 % Neut % (Auto) 49.4 % Lymph % (Auto) 37.9 % [place] % (Auto) 6.9 % Eos % (Auto) 3.3 % Baso % (Auto) 1.0 % Neut # (Auto) 4.83 (1.40-6.50) K/uL Lymph # (Auto) 3.71 H (1.20-3.40) K/uL [place] # (Auto) 0.67 H (0.11-0.59) K/uL Eos # (Auto) 0.32 (0.00-0.50) K/uL Baso # (Auto) 0.10 (0.00-0.20) K/uL Immature Gran # (Auto) 0.15 (0.01-0.20) K/uL POC Sodium 141 (135-144) mmol/L Sodium 137 (136-145) mmol/L POC Potassium 3.8 (3.3-5.0) mmol/L Potassium 3.3 L (3.5-5.1) mmol/L POC Chloride 106 (101-112) mmol/L Chloride 107 (98-107) mmol/L Carbon Dioxide 22 (21-32) mmol/L POC Total CO2 21 L (24-31) mmol/L Anion Gap 8 (3-11) POC Anion Gap 19.0 (16-25) mmol/L POC BUN 8 (7-18) mg/dl BUN 9 (6-23) mg/dl Creatinine 0.73 (0.6-1.2) mg/dl POC Creatinine 0.7 (0.6-1.3) mg/dl Est Cr Clr Drug Dosing Not Reportable Est GFR ( Amer) 100.2 ml/min Est GFR (Non-Af Amer) 86.4 ml/min BUN/Creatinine Ratio 12.3 (10-20) Glucose 176 H (70-99(Fasting)) mg/dl POC Glucose (other) 186 H (70-99) mg/dl Calcium 9.7 (8.6-10.3) mg/dl POC Ioniz Calcium Timur 1.20 (1.12-1.32) mmol/l Magnesium 1.9 (1.7-2.4) mg/dl Total Bilirubin 0.6 (0.2-1.0) mg/dl AST 11 L (13-39) U/L ALT 7 (7-52) U/L Alkaline Phosphatase 113 H (34-104) U/L Troponin I High Sens 5.0 (0-14) pg/ml Total Protein 8.0 (6.0-8.3) gm/dl Albumin 4.2 (3.4-5.0) gm/dl Globulin 3.8 (2.5-4.0) gm/dl Albumin/Globulin Ratio 1.1 (0.9-2) Administered Medications Sodium Chloride (Nss) 1,000 mls @ 125 mls/hr IV .Q8H [facility] Stop: 12/11/23 10:59 Last Infusion: 11/11/23 16:39 Dose: 125 mls/hr Documented By: Infusion: 11/11/23 15:38 Dose: 0 mls/hr Documented By: Admin: 11/11/23 14:03 Dose: 125 mls/hr Documented By: NATANAEL Miscellaneous (Icu Protocol For Hyperglycemia) 1 each N/A Q6 NARDA Stop: 11/13/23 17:59 Last Admin: 11/11/23 17:58 Dose: Not Given Documented By: SYD Discontinued Medications Diazepam (Diazepam 5 Mg/Ml 10ml Vial) 2.5 mg IV NOW STA Stop: 11/11/23 12:03 Last Admin: 11/11/23 12:24 Dose: 2.5 mg Documented By: KYM Sodium Chloride (Nss) 500 mls @ 999 mls/hr IV .Q31M ONE Stop: 11/11/23 11:37 Last Infusion: 11/11/23 12:39 Dose: Infused Documented By: Admin: 11/11/23 12:02 Dose: 999 mls/hr Documented By: KYM Tenecteplase 21 mg/ Syringe 4.2 mls @ 50.4 mls/min IV NOW ONE; Protocol Stop: 11/11/23 11:57 Last Admin: 11/11/23 11:55 Dose: 50.4 mls/min Documented By: KYM Co-signed By: TRISTEN Potassium Chloride (K Renan / Wtr) 10 meq in 100 mls @ 100 mls/hr IV Q1H NARDA Stop: 11/11/23 17:29 Last Admin: 11/11/23 18:15 Dose: 100 mls/hr Documented By: Infusion: 11/11/23 18:15 Dose: Infused Documented By: Admin: 11/11/23 17:15 Dose: 100 mls/hr Documented By: Infusion: 11/11/23 17:15 Dose: Infused Documented By: Infusion: 11/11/23 16:39 Dose: 100 mls/hr Documented By: Infusion: 11/11/23 15:38 Dose: 0 mls/hr Documented By: Admin: 11/11/23 15:17 Dose: 100 mls/hr Documented By: Infusion: 11/11/23 15:16 Dose: Infused Documented By: Admin: 11/11/23 14:22 Dose: 100 mls/hr Documented By: NATANAEL Magnesium Sulfate/Dextrose (Magnesium Sulfate / D5w) 1 gm in 100 mls @ 50 mls/hr IV ONE ONE Stop: 11/11/23 16:45 Last Infusion: 11/11/23 18:22 Dose: Infused Documented By: Infusion: 11/11/23 16:39 Dose: 50 mls/hr Documented By: Infusion: 11/11/23 15:38 Dose: 0 mls/hr Documented By: Admin: 11/11/23 15:17 Dose: 50 mls/hr Documented By: NATANAEL Ioversol (Optiray 320 125ml) 119 ml IV ONCE ONE Stop: 11/11/23 11:29 Last Admin: 11/11/23 11:28 Dose: 119 ml Documented By: SIENNA Lorazepam (Lorazepam 2 Mg/1 Ml Vial) 1 mg IV NOW STA Stop: 11/11/23 11:08 Last Admin: 11/11/23 11:20 Dose: 1 mg Documented By: ELOISE Miscellaneous (Stat Iv/Im) 1 each N/A NOW STA Stop: 11/11/23 11:47 Last Admin: 11/11/23 12:05 Dose: Not Given Documented By: KYM Ondansetron HCl (Ondansetron Inj 2 Mg/Ml 2 Ml Vial) 4 mg IV NOW STA Stop: 11/11/23 11:08 Last Admin: 11/11/23 11:20 Dose: 4 mg Documented By: ELOISE Ondansetron HCl (Ondansetron Inj 2 Mg/Ml 2 Ml Vial) 4 mg IV NOW STA Stop: 11/11/23 12:03 Last Admin: 11/11/23 12:04 Dose: 4 mg Documented By: KYM Sodium Chloride (Sodium Chloride 0.9% 10ml Flush) 20 ml IV NOW STA Stop: 11/11/23 11:47 Last Admin: 11/11/23 11:55 Dose: 20 ml Documented By: KYM Imaging Data Radiologist's Impression: Chest X-Ray 11/11/23 10:57 XR chest 1V portable CLINICAL HISTORY: Shortness of breath. COMPARISON STUDY: Chest radiograph May 20, 2018. FINDINGS: Postoperative findings within the spine are incidentally noted. There is no pneumothorax or pleural effusion. Minimal basilar densities favor atelectasis. There is no evidence for pulmonary edema. Cardiomediastinal silhouette is unremarkable. IMPRESSION: No acute cardiopulmonary findings. ACT 112: Negative or not required by law. Electronically signed by: Trevin Howell M.D. 11/11/2023 11:[address] 11/11/23 11:14 CT OF THE HEAD WITHOUT CONTRAST CLINICAL HISTORY: neuro deficit, acute stroke suspected. Vertigo. Nausea. COMPARISON STUDY: No previous studies for comparison. TECHNIQUE: Helical axial images of the head were obtained without IV contrast. Automated exposure control was utilized for the study. A dose lowering technique was utilized adhering to the principles of ALARA. FINDINGS: No acute intracranial hemorrhage, midline shift or mass effect is present. Mild dilatation of the lateral ventricles is likely related to central atrophy. Multifocal white matter hypodensities are present. The basal cisterns are patent. No extra-axial collections are present. There are no findings to suggest acute dural sinus thrombosis or acute territorial infarct. No significant calvarial abnormalities are present. Visualized portions of the sinuses and mastoid air cells are clear. IMPRESSION: 1. No acute intracranial findings. 2. Mild dilatation of the lateral ventricles, likely related to central atrophy. 3. Multifocal white matter hypodensities. Although nonspecific, small vessel disease is favored. ACT 112: Negative or not required by law. Electronically signed by: Trevin Howell M.D. 11/11/2023 11:43 AM Head CTA 11/11/23 11:14 CTA ANGIOGRAPHY OF THE HEAD CLINICAL HISTORY: neuro deficit, acute stroke suspected. Vertigo. Nausea. COMPARISON STUDY: No previous studies for comparison. TECHNIQUE: Helical axial images of the head were obtained following uneventful intravenous administration of 119 cc of Optiray. Sagittal and coronal reconstructions were viewed as well as maximal intensity projections on an independent 3-D workstation. Automated exposure control was utilized for the study. A dose lowering technique was utilized adhering to the principles of ALARA. FINDINGS: No acute intracranial hemorrhage, midline shift or mass effect is present. Mild dilatation of the lateral ventricles is likely related to central atrophy. There are no extra axial collections. The bilateral M1, M2, A1 and A2 segments are patent. There is no intracranial aneurysm. The right vertebral artery is dominant. The intracranial portions of the vertebral arteries are patent. The basilar artery is patent. The bilateral posterior cerebral arteries are patent. The superior cerebellar arteries are patent. IMPRESSION: No large vessel occlusion. No intracranial aneurysm. ACT 112: Negative or not required by law. Electronically signed by: Trevin Howell M.D. 11/11/2023 11:55 AM Neck CTA 11/11/23 11:14 CT ANGIOGRAPHY OF THE NECK WITH CONTRAST CLINICAL HISTORY: neuro deficit, acute stroke suspected COMPARISON STUDY: No previous studies for comparison. Technique: CT angiography of the carotid and vertebral arteries was obtained using Optiray and 3D reconstruction on an independent workstation. NASCET criteria was utilized. Automated exposure control was utilized for the study. A dose lowering technique was utilized adhering to the principles of ALARA. CT DOSE: 1065.36 mGy.cm Findings: Visualized portions of the lung apices are unremarkable. There are no cervical spine fractures. Status post C6-C7 anterior discectomy and fusion. A few thyroid nodules are incidentally noted. There is no cervical lymphadenopathy. The bilateral common carotid and cervical internal carotid arteries are patent. There is mild plaque within these vessels without stenosis. The right vertebral artery is dominant and patent. There is 80% focal narrowing of the proximal left subclavian artery, likely due to noncalcified plaque. A short segment dissection is considered less likely. The left vertebral artery is somewhat diminutive but patent. There is no aneurysm within the neck. Because retention cyst within the left maxillary sinus is incidentally noted. IMPRESSION: 1. No stenoses within the bilateral common carotid or cervical internal carotid arteries. 2. 80% focal narrowing of the proximal left subclavian artery, likely due to noncalcified plaque. Unstable plaque cannot be excluded by CT. A short segment dissection could appear similar although is considered much less likely. 3. Dominant, patent right vertebral artery. Somewhat diminutive but patent left vertebral artery. ACT 112: Negative or not required by law. Electronically signed by: Trevin Howell M.D. 11/11/2023 11:51 AM Discharge Plan Visit Data Chief Complaint: Vertigo Stated Complaint: DIZZY, VOMITING ED Provider: Santino Leija Discharge Problem: Dizziness, Nausea & vomiting Patient Disposition: Admitted As Inpatient Discharge Instructions Interventions: ED Discharge Assessment Last Done: 11/11/23 13:30
--- NOTE | 2023-11-11 11:14 | XRay Report ---
XR chest 1V portable CLINICAL HISTORY: Shortness of breath. COMPARISON STUDY: Chest radiograph May 20, 2018. FINDINGS: Postoperative findings within the spine are incidentally noted. There is no pneumothorax or pleural effusion. Minimal basilar densities favor atelectasis. There is no evidence for pulmonary ed josé antonio. Cardiomediastinal silhouette is unremarkable. IMPRESSION: No acute cardiopulmonary findings. ACT 112: Negative or not required by law. Electronically signed by: Trevin Howell M.D. 11/11/2023 11:13 AM
[2023-11-11 11:18] LABS: Eosinophils # (auto) 0.32 K/uL (0.00-0.50); Eosinophils % (auto) 3.3 %; Hematocrit (blood only) 43.2 % (37.0-47.0); Hemoglobin 14.2 g/dl (12.0-16.0); Immature Granulocytes # (auto) 0.15 K/uL (0.01-0.20); Immature Granulocytes % (auto) 1.5 %; Lymphocytes # (auto) 3.71 K/uL (1.20-3.40); Lymphocytes % (auto) 37.9 %; Mean Corpuscular Hemoglobin 27.4 pg (25.0-34.0); Mean Corpuscular Hgb Conc 32.9 g/dL (32.0-36.0); Mean Corpuscular Volume 83.2 fL (80.0-100.0); Mean Platelet Volume 9.7 fL (9.4-12.4); Monocytes # (auto) 0.67 K/uL (0.11-0.59); Monocytes % (auto) 6.9 %; Neutrophils # (auto) 4.83 K/uL (1.40-6.50); Neutrophils % (auto) 49.4 %; Platelet Count 327 K/uL (130-400); RDW Coefficient of Variation 13.7 % (11.5-14.5); RDW Standard Deviation 41.6 fL (36.4-46.3); Red Blood Count 5.19 M/uL (4.20-5.40); White Blood Count 9.78 K/ul (4.8-10.8)
[2023-11-11] MEDS: ONDANSETRON INJ 2 MG/ML 2 ML VIAL IV STA ×2 (11:20→12:04)
[2023-11-11] MEDS: LORazepam 2 MG/1 ML VIAL IV STA (11:20)
[2023-11-11 11:22] LABS: Alanine Aminotransferase 7 U/L (7-52); Albumin Globulin Ratio 1.1 (0.9-2); Albumin Level 4.2 gm/dl (3.4-5.0); Alkaline Phosphatase 113 U/L (34-104); Anion Gap 8 (3-11); Aspartate Aminotransferase 11 U/L (13-39); BUN Creatinine Ratio 12.3 (10-20); Bilirubin,Total 0.6 mg/dl (0.2-1.0); Blood Urea Nitrogen 9 mg/dl (6-23); Calcium 9.7 mg/dl (8.6-10.3); Carbon Dioxide 22 mmol/L (21-32); Chloride 107 mmol/L (98-107); Est GFR (African American) 100.2 ml/min; Est GFR (Non-African American) 86.4 ml/min; Globulin 3.8 gm/dl (2.5-4.0); Glucose 176 mg/dl (70-99(Fasting)); Magnesium 1.9 mg/dl (1.7-2.4); Potassium 3.3 mmol/L (3.5-5.1); Sodium 137 mmol/L (136-145)
[2023-11-11] MEDS: OPTIRAY 320 125ml IV ONE (11:28)
[2023-11-11 11:33] LABS: iSTAT Creatinine 0.7 mg/dl (0.6-1.3); iSTAT Hemoglobin 14.3 g/dl (12.0-16.0); iSTAT Ionized Calcium 1.2 mmol/l (1.12-1.32); iSTAT Potassium 3.8 mmol/L (3.3-5.0)
--- NOTE | 2023-11-11 11:45 | CT Scan Report ---
CT OF THE HEAD WITHOUT CONTRAST CLINICAL HISTORY: neuro deficit, acute stroke suspected. Vertigo. Nausea. COMPARISON STUDY: No previous studies for comparison. TECHNIQUE: Helical axial images of the head were obtained without IV contrast. Automated exposure con trol was utilized for the study. A dose lowering technique was utilized adhering to the principles o f ALARA. FINDINGS: No acute intracranial hemorrhage, midline shift or mass effect is present. Mild dilatation of the lateral ventricles is likely related to central atrophy. Multifocal white matter hypodensities are present. The basal cisterns are patent. No extra-axial collections are present. There are no fin dings to suggest acute dural sinus thrombosis or acute territorial infarct. No significant calvarial abnormalities are present. Visualized portions of the sinuses and mastoid air cells are clear. IMPRESSION: 1. No acute intracranial findings. 2. Mild dilatation of the lateral ventricles, likely related to central atrophy. 3. Multifocal white matter hypodensities. Although nonspecific, small vessel disease is favored. ACT 112: Negative or not required by law. Electronically signed by: Trevin Howell M.D. 11/11/2023 11:43 AM
--- NOTE | 2023-11-11 11:54 | CT Scan Report ---
CT ANGIOGRAPHY OF THE NECK WITH CONTRAST CLINICAL HISTORY: neuro deficit, acute stroke suspected COMPARISON STUDY: No previous studies for comparison. Technique: CT angiography of the carotid and vertebral arteries was obtained using Optiray and 3D rec onstruction on an independent workstation. NASCET criteria was utilized. Automated exposure control was utilized for the study. A dose lowering technique was utilized adhering to the principles of ALA RA. CT DOSE: 1065.36 mGy.cm Findings: Visualized portions of the lung apices are unremarkable. There are no cervical spine fractu res. Status post C6-C7 anterior discectomy and fusion. A few thyroid nodules are incidentally noted. There is no cervical lymphadenopathy. The bilateral common carotid and cervical internal carotid christa ruddy are patent. There is mild plaque within these vessels without stenosis. The right vertebral christa ry is dominant and patent. There is 80% focal narrowing of the proximal left subclavian artery, likel y due to noncalcified plaque. A short segment dissection is considered less likely. The left vertebra l artery is somewhat diminutive but patent. There is no aneurysm within the neck. Because retention c yst within the left maxillary sinus is incidentally noted. IMPRESSION: 1. No stenoses within the bilateral common carotid or cervical internal carotid arteries. 2. 80% focal narrowing of the proximal left subclavian artery, likely due to noncalcified plaque. Uns table plaque cannot be excluded by CT. A short segment dissection could appear similar although is co nsidered much less likely. 3. Dominant, patent right vertebral artery. Somewhat diminutive but patent left vertebral artery. ACT 112: Negative or not required by law. Electronically signed by: Trevin Howell M.D. 11/11/2023 11:51 AM
[2023-11-11] MEDS: TENECTEPLASE 21 MG in SYRINGE 0 ML IV ONE (11:55)
[2023-11-11] MEDS: SODIUM CHLORIDE 0.9% 10ML FLUSH IV STA (11:55)
--- NOTE | 2023-11-11 11:57 | CT Scan Report ---
CTA ANGIOGRAPHY OF THE HEAD CLINICAL HISTORY: neuro deficit, acute stroke suspected. Vertigo. Nausea. COMPARISON STUDY: No previous studies for comparison. TECHNIQUE: Helical axial images of the head were obtained following uneventful intravenous administr ation of 119 cc of Optiray. Sagittal and coronal reconstructions were viewed as well as maximal inten sity projections on an independent 3-D workstation. Automated exposure control was utilized for the study. A dose lowering technique was utilized adhering to the principles of ALARA. FINDINGS: No acute intracranial hemorrhage, midline shift or mass effect is present. Mild dilatation of the lateral ventricles is likely related to central atrophy. There are no extra axial collections. The bilateral M1, M2, A1 and A2 segments are patent. There is no intracranial aneurysm. The right ve rtebral artery is dominant. The intracranial portions of the vertebral arteries are patent. The basil ar artery is patent. The bilateral posterior cerebral arteries are patent. The superior cerebellar ar teries are patent. IMPRESSION: No large vessel occlusion. No intracranial aneurysm. ACT 112: Negative or not required by law. Electronically signed by: Trevin Howell M.D. 11/11/2023 11:55 AM
[2023-11-11] MEDS ORDERED: No Aspirin within 24hrs of THROMBOLYTIC-Stroke PO SCH (12:00)
[2023-11-11] MEDS: SODIUM CHLORIDE 0.9% 500 ML IV ONE (12:02)
[2023-11-11] MEDS: STAT IV/IM STA (12:05)
[2023-11-11] MEDS: diazePAM 5 MG/ML 10ML VIAL IV STA (12:24)
--- NOTE | 2023-11-11 12:24 | History & Physical Report ---
Date of Service November 11, 2023 Assessment & Plan (1) Stroke-like symptoms: Plan Kirsten Crowder is a 63y/o F with PMHx significant for GERD, depressive disorder and sinus bradycardia who presented to the ED for evaluation secondary to an acute onset of dizziness and nausea/vomiting. Evidence of slight right-sided facial drooping and rotary nystagmus on exam in ED. Stroke alert was therefore called. Emergent head CT with no acute intracranial findings, but did note multifocal white matter hypodensities in addition to mild dilatation of the lateral ventricles. Last known well was around 10AM this morning. Telestroke service was consulted. Recommended administering TNK. 21mg TNK was administered at 11:55. Stroke-Like Symptoms s/p TNK Administration Was slightly hypertensive on arrival, has since improved. Hypokalemia noted but otherwise lab work rather unremarkable. Slight bump in alk phos. CXR negative. K+ replaced in ED. Head CT negative for any acute intracranial findings, yet did note mild dilatation of the lateral ventricles and multifocal white matter hypodensities. Head CTA negative for large vessel occlusion, no intracranial aneurysm. Neck CTA shows 80% focal narrowing of the proximal L subclavian artery, likely 2/2 noncalcified plaque. [facility] consulted s/p TNK administration. Bleeding precautions. Neurology consulted. Brain MRI pending. Echo pending. UA pending. Lipid panel, Hgb A1c in AM. Start Lipitor 40mg daily. NPO for now. Dysphagia screen pending. Routine neuro checks. Complete bedrest. Speech eval, PT/OT evals pending. Aspiration, fall precautions. Closely monitor I&Os. PRN IV Zofran. Replete electrolytes PRN. DVT Prophylaxis: Chemoprophylaxis contraindicated following administration of TNK. No ASA w/in 24hrs of TNK administration. Code Status: FULL CODE PCP: NO PCP Disposition: Admit to ICU Patient seen in collaboration with Dr. Anderson. Please see addendum. I spent a total of 65 minutes coordinating, documenting, and providing care for this patient excluding time spent in the performance of separately billed services. This included personally reviewing all current laboratories and imaging studies, medical reconciliation, outpatient chart review and discussion with specialists. This chart was completed in part utilizing Speech Voice Recognition Software. Grammatical errors, random word insertions, pronoun errors, and incomplete sentences are an occasional consequence of this system due to software limitations, ambient noise, and hardware issues. Any formal questions or concerns about the content, text, or information contained within the body of this dictation should be directly addressed to the provider for clarification. History of Present Illness Chief Complaint: Dizziness, Nausea/Vomiting Primary Care Provider: NO PCP Kirsten Crowder is a 63y/o F with PMHx significant for GERD, depressive disorder and sinus bradycardia who presented to the ED for evaluation secondary to an acute onset of dizziness and nausea/vomiting. History obtained from patient, at bedside, ED provider and associated chart review. Evidence of slight right-sided facial drooping and rotary nystagmus on exam in ED. Stroke alert was therefore called. Emergent head CT with no acute intracranial findings, but did note multifocal white matter hypodensities in addition to mild dilatation of the lateral ventricles. Last known well was around 10 AM this morning. Telestroke service was consulted. Recommended administering TNK. 21mg TNK was administered at 11:55. Patient's , [place], reports the patient was acting completely fine at their house this morning. She had left a little after 9AM to go let her son's dog out. Around 10AM, the patient called her and reported that he needed to immediately come to her son's house. reports that she was vomiting, dizzy and "not acting like herself" when he arrived to the house. He did not appreciate any facial drooping when he first got to her. He emergently put her in the passenger seat and brought her to the ED for evaluation. He mentions that she has not been sick recently and overall has been acting like herself in the recent days past. No significant medical history per her . She does not take any prescription medications. He does report that she has had significant difficulty swallowing pills for the past 30+ years. They have to crush any pills that she would take because they get "stuck in her throat" and sometimes cause her to choke. He mentions that she sometimes has difficulty eating due to food " getting stuck," but overall she is able to swallow food okay. Allergies Allergy/AdvReac Type Severity Reaction Status Date / Time diphenhydramine Allergy Severe THROAT Verified 05/20/18 03:05 SWELLS, CAN'T BREATHE naproxen Allergy Severe THROAT Verified 05/20/18 03:05 SWELLS, CAN'T BREATHE sertraline Allergy Severe THROAT Verified 05/20/18 03:05 SWELLS, CAN'T BREATHE Sulfa (Sulfonamide Allergy Severe THROAT Verified 05/20/18 03:05 Antibiotics) SWELLS, CAN'T BREATHE tramadol Allergy Severe THROAT Verified 05/20/18 03:05 SWELLS, CAN'T BREATHE Home Medications Medication Instructions Recorded Confirmed Type No Known Home Medications 05/20/18 11/11/23 History Past Med/Surg History Problem List (Updated 11/11/23 @ 13:24 by Shanelle Bishop PA-C) Stroke-like symptoms Nausea & vomiting (Acute) Dizziness (Acute) Acute cholecystitis Encounter for pre-operative examination Ventricular ectopic beats Sinus bradycardia Biliary colic (Acute) Medical History (Updated 11/11/23 @ 13:24 by Shanelle Bishop PA-C) No significant past medical history Social History Smoking Status: Never smoker Hx Alcohol Use: No Hx Substance Use: No Preferred Language: Greenlandic Beliefs That Will Affect Care: None Current Living Situation: Spouse Feels Safe at Home: Yes Assistive Devices: None Review of Systems Review of Systems: At least ten systems reviewed and negative, except as noted in the HPI. Physical Exam Physical Exam: General: WD/WN, vitals as above, NAD, head resting at an incline, very hard of hearing, A+Ox2, very responsive to verbal commands. HEENT: Normocephalic, atraumatic. Conjunctivae normal, anicteric sclerae, horizontal nystagmus noted, oropharynx appears slightly dry. Respiratory: Normal respiratory effort, lungs clear to auscultation, no wheeze, rales, rhonchi. No accessory muscle use. Cardiovascular: Regular rate, rhythm, no murmur, normal peripheral pulses, no BLE edema. Vessels: No JVD. Abdomen/GI: Normal bowel sounds, soft, nontender, no hepatosplenomegaly. Extremities/Musculoskeletal: No cyanosis or clubbing, extremities motor strength intact, moves all extremities. Neurologic: Right-sided facial drooping improved, slower speech but answering questions appropriately, no pronator drift. Skin: No rashes, normal color, warm/dry. Results & Data Results & Data Vital Signs (Past 12 Hours) Vital Signs Temp Pulse Pulse Resp BP BP Pulse Ox 11/11/23 12:10 57 L 30 H 149/82 H 96 11/11/23 12:06 68 11/11/23 11:44 80 L 11/11/23 10:35 36.3 C L 64 14 146/69 H 96 O2 Del Method O2 Flow Rate 11/11/23 12:10 Nasal Cannula 2 11/11/23 12:06 11/11/23 11:44 Room Air, Nasal Cannula 0 11/11/23 10:35 Room Air Laboratory Results Short CBC 11/11/23 Range/Units 10:50 WBC 9.78 (4.8-10.8) K/ul Hgb 14.2 (12.0-16.0) g/dl Hct 43.2 (37.0-47.0) % Plt Count 327 (130-400) K/uL BMP 11/11/23 10:50 Sodium 137 Potassium 3.3 L Chloride 107 Carbon Dioxide 22 BUN 9 Creatinine 0.73 Glucose 176 H Calcium 9.7 Liver Function 11/11/23 Range/Units 10:50 Total Bilirubin 0.6 (0.2-1.0) mg/dl AST 11 L (13-39) U/L ALT 7 (7-52) U/L Alkaline Phosphatase 113 H (34-104) U/L Albumin 4.2 (3.4-5.0) gm/dl Diagnostic Findings Chest X-Ray 11/11/23 10:57 XR chest 1V portable CLINICAL HISTORY: Shortness of breath. COMPARISON STUDY: Chest radiograph May 20, 2018. FINDINGS: Postoperative findings within the spine are incidentally noted. There is no pneumothorax or pleural effusion. Minimal basilar densities favor atelectasis. There is no evidence for pulmonary edema. Cardiomediastinal silhouette is unremarkable. IMPRESSION: No acute cardiopulmonary findings. ACT 112: Negative or not required by law. Electronically signed by: Trevin Howell M.D. 11/11/2023 11:[address] 11/11/23 11:14 CT OF THE HEAD WITHOUT CONTRAST CLINICAL HISTORY: neuro deficit, acute stroke suspected. Vertigo. Nausea. COMPARISON STUDY: No previous studies for comparison. TECHNIQUE: Helical axial images of the head were obtained without IV contrast. Automated exposure control was utilized for the study. A dose lowering technique was utilized adhering to the principles of ALARA. FINDINGS: No acute intracranial hemorrhage, midline shift or mass effect is present. Mild dilatation of the lateral ventricles is likely related to central atrophy. Multifocal white matter hypodensities are present. The basal cisterns are patent. No extra-axial collections are present. There are no findings to suggest acute dural sinus thrombosis or acute territorial infarct. No significant calvarial abnormalities are present. Visualized portions of the sinuses and mastoid air cells are clear. IMPRESSION: 1. No acute intracranial findings. 2. Mild dilatation of the lateral ventricles, likely related to central atrophy. 3. Multifocal white matter hypodensities. Although nonspecific, small vessel disease is favored. ACT 112: Negative or not required by law. Electronically signed by: Trevin Howell M.D. 11/11/2023 11:43 AM Head CTA 11/11/23 11:14 CTA ANGIOGRAPHY OF THE HEAD CLINICAL HISTORY: neuro deficit, acute stroke suspected. Vertigo. Nausea. COMPARISON STUDY: No previous studies for comparison. TECHNIQUE: Helical axial images of the head were obtained following uneventful intravenous administration of 119 cc of Optiray. Sagittal and coronal reconstructions were viewed as well as maximal intensity projections on an independent 3-D workstation. Automated exposure control was utilized for the study. A dose lowering technique was utilized adhering to the principles of ALARA. FINDINGS: No acute intracranial hemorrhage, midline shift or mass effect is present. Mild dilatation of the lateral ventricles is likely related to central atrophy. There are no extra axial collections. The bilateral M1, M2, A1 and A2 segments are patent. There is no intracranial aneurysm. The right vertebral artery is dominant. The intracranial portions of the vertebral arteries are patent. The basilar artery is patent. The bilateral posterior cerebral arteries are patent. The superior cerebellar arteries are patent. IMPRESSION: No large vessel occlusion. No intracranial aneurysm. ACT 112: Negative or not required by law. Electronically signed by: Trevin Howell M.D. 11/11/2023 11:55 AM Neck CTA 11/11/23 11:14 CT ANGIOGRAPHY OF THE NECK WITH CONTRAST CLINICAL HISTORY: neuro deficit, acute stroke suspected COMPARISON STUDY: No previous studies for comparison. Technique: CT angiography of the carotid and vertebral arteries was obtained using Optiray and 3D reconstruction on an independent workstation. NASCET criteria was utilized. Automated exposure control was utilized for the study. A dose lowering technique was utilized adhering to the principles of ALARA. CT DOSE: 1065.36 mGy.cm Findings: Visualized portions of the lung apices are unremarkable. There are no cervical spine fractures. Status post C6-C7 anterior discectomy and fusion. A few thyroid nodules are incidentally noted. There is no cervical lymphadenopathy. The bilateral common carotid and cervical internal carotid arteries are patent. There is mild plaque within these vessels without stenosis. The right vertebral artery is dominant and patent. There is 80% focal narrowing of the proximal left subclavian artery, likely due to noncalcified plaque. A short segment dissection is considered less likely. The left vertebral artery is somewhat diminutive but patent. There is no aneurysm within the neck. Because retention cyst within the left maxillary sinus is incidentally noted. IMPRESSION: 1. No stenoses within the bilateral common carotid or cervical internal carotid arteries. 2. 80% focal narrowing of the proximal left subclavian artery, likely due to noncalcified plaque. Unstable plaque cannot be excluded by CT. A short segment dissection could appear similar although is considered much less likely. 3. Dominant, patent right vertebral artery. Somewhat diminutive but patent left vertebral artery. ACT 112: Negative or not required by law. Electronically signed by: Trevin Howell M.D. 11/11/2023 11:51 AM Medications Administered Discontinued Medications Diazepam (Diazepam 5 Mg/Ml 10ml Vial) 2.5 mg IV NOW STA Stop: 11/11/23 12:03 Last Admin: 11/11/23 12:24 Dose: 2.5 mg Documented By: KYM Sodium Chloride (Nss) 500 mls @ 999 mls/hr IV .Q31M ONE Stop: 11/11/23 11:37 Last Admin: 11/11/23 12:02 Dose: 999 mls/hr Documented By: KYM Tenecteplase 21 mg/ Syringe 4.2 mls @ 50.4 mls/min IV NOW ONE; Protocol Stop: 11/11/23 11:57 Last Admin: 11/11/23 11:55 Dose: 50.4 mls/min Documented By: KYM Co-signed By: TRISTEN Ioversol (Optiray 320 125ml) 119 ml IV ONCE ONE Stop: 11/11/23 11:29 Last Admin: 11/11/23 11:28 Dose: 119 ml Documented By: SIENNA Lorazepam (Lorazepam 2 Mg/1 Ml Vial) 1 mg IV NOW STA Stop: 11/11/23 11:08 Last Admin: 11/11/23 11:20 Dose: 1 mg Documented By: ELOISE Miscellaneous (Stat Iv/Im) 1 each N/A NOW STA Stop: 11/11/23 11:47 Last Admin: 11/11/23 12:05 Dose: Not Given Documented By: KYM Ondansetron HCl (Ondansetron Inj 2 Mg/Ml 2 Ml Vial) 4 mg IV NOW STA Stop: 11/11/23 11:08 Last Admin: 11/11/23 11:20 Dose: 4 mg Documented By: ELOISE Ondansetron HCl (Ondansetron Inj 2 Mg/Ml 2 Ml Vial) 4 mg IV NOW STA Stop: 11/11/23 12:03 Last Admin: 11/11/23 12:04 Dose: 4 mg Documented By: KYM Sodium Chloride (Sodium Chloride 0.9% 10ml Flush) 20 ml IV NOW STA Stop: 11/11/23 11:47 Last Admin: 11/11/23 11:55 Dose: 20 ml Documented By: KYM Code Status & VTE Plan Code Status FULL CODE Supervising Physician Co-Signing Physician Notes 63-year-old lady with PMH of GERD, depressive disorder, sinus bradycardia presented to the ED for evaluation of acute onset dizziness associated with nausea, vomiting, right facial droop and rotatory nystagmus. Due to concern for strokelike symptoms, [facility] was reached out at ED, patient received TNK and is admitted in the ICU for observation next 24 hours. Avoid blood thinners for next 24 hours. Patient reports improvement in her nausea and vomiting at bedside exam, minimal right facial droop noted, no weakness of limbs noted. Labs and head imaging reviewed. Patient is in ICU observation for strokelike symptoms status post TNK administration. ICU consult, neurology consult, atorvastatin, lipid panel, A1c, echo, telemetry monitoring, MRI brain, CT head in 24 hours of TNK administration, speech/PT/OT evaluation, 40 mEq IV KCl and 1 g IV magnesium. As needed nausea medications. Allow permissive HTN, maintain BP < 180/105. prn hydralazine on. On exam: GENERAL: Alert and oriented x3. NAD, on 1L NC O2. Very [place]/does lip reading. HEENT: No pallor, no icterus. Pupils equal, round and reactive to light. Oral mucosa moist. NECK: No JVD, no neck masses. HEART: S1 and S2 heard. Regular rate and rhythm. No murmur, no gallop. RESPIRATORY SYSTEM: Normal AP diameter. No accessory muscle use. No wheezing, no crackles. ABDOMEN: Soft, bowel sounds present, nontender, no distention. CENTRAL NERVOUS SYSTEM: Minimal rt facial droop +. Speech is clear. Obeys simple commands. Moves extremities. Power 5/5 all limbs. EXTREMITIES: No edema, no erythema seen. I have seen and examined the patient and have discussed the case with the provider above. I agree with the assessment and plan as stated.
--- NOTE | 2023-11-11 13:27 | Critical Care Consultation ---
Date of Consultation November 11, 2023 Assessment & Plan (1) Stroke-like symptoms: (2) Nausea & vomiting: (3) Dizziness: Plan -- Strokelike symptoms with acute vertigo S/p TNK 11/11/2023 at 11:[address] of the head 11/11/2023, no acute intracranial findings, small vessel disease CTA of the neck shows 80% focal narrowing of the proximal left subclavian artery, likely due to noncalcified plaque Continue with neurochecks Try to keep blood pressure < 180/105 -- GERD --Prophylaxis VTE: IPC GI: None Lines: Peripheral Diet: N.p.o. Plan: Continue with neurochecks Repeat CT of the head in 24 hours Aspirin after 24 hours Follow-up MRI of the brain and official neurology consult Follow-up 2D echo Continue with Zofran as well as benzodiazepine for vertigo. Chlorpromazine can also be thought for vertigo Potassium replaced in the ED Please note the above document was generated using voice recognition software. It may contain grammatical, syntax or spelling errors.Any formal questions or concerns about the content, text or information contained within the body of this dictation should be directly addressed to the provider for clarification. History of Present Illness History of Present Illness 63-year-old female was admitted to the hospital because of sudden onset of vertigo Past medical history: GERD, depressive disorder Stroke alert was called for the patient and tele neurologist recommended TNK to be administered TNK was administered around 11:55 AM At the time of examination in the ICU. She was not in any respiratory distress. Patient is hard to hear Heart rate was in the low 50s. Systolic blood pressure was 175 with diastolic in the 70s She denied any chest pain. Stated that the dizziness has significantly improved since coming to the hospital She still feels dizzy when he she moves. No nausea right now. No fever or chills No headache or blurry vision. Denies any weakness Social history: Lifetime non-smoker Allergies Allergy/AdvReac Type Severity Reaction Status Date / Time diphenhydramine Allergy Severe THROAT Verified 05/20/18 03:05 SWELLS, CAN'T BREATHE naproxen Allergy Severe THROAT Verified 05/20/18 03:05 SWELLS, CAN'T BREATHE sertraline Allergy Severe THROAT Verified 05/20/18 03:05 SWELLS, CAN'T BREATHE Sulfa (Sulfonamide Allergy Severe THROAT Verified 05/20/18 03:05 Antibiotics) SWELLS, CAN'T BREATHE tramadol Allergy Severe THROAT Verified 05/20/18 03:05 SWELLS, CAN'T BREATHE Home Medications Medication Instructions Recorded Confirmed Type No Known Home Medications 05/20/18 11/11/23 History Patient History Medical History (Updated 11/11/23 @ 13:24 by Shanelle Bishop PA-C) No significant past medical history Social History Smoking Status: Never smoker Hx Alcohol Use: No Hx Substance Use: No Preferred Language: Kazakh Beliefs That Will Affect Care: None Current Living Situation: Spouse Feels Safe at Home: Yes Assistive Devices: None Review of Systems 2 Review of Systems: All systems reviewed & are unremarkable except as noted in HPI & below Physical Exam 2 Physical Exam: Constitutional: No acute distress HEENT: EOMI, PERRLA, hard to hear Respiratory system: Decreased air entry bilaterally, no wheeze, rhonchi, mild crackles bilateral lower lobes CVS: S1-S2 positive, no murmurs or gallops, bradycardia Abdomen: Soft, nontender, nondistended, positive bowel sounds x4 Extremities: +2 pulses bilaterally radialis/ dorsalis pedis, no cyanosis, no edema Neuro: Awake alert oriented x3, right sided droop at the angle of the lip, minimal slurred speech, strength 5 out of 5 bilateral upper and lower extremity Psych: Normal mood and affect G/U: No [place] Skin: no rashes, warm and dry Lymphatic: no cervical or axillary lymphadenopathy Results & Data Results & Data Vital Signs (Past 12 Hours) Vital Signs Temp Pulse Pulse Resp BP BP Pulse Ox 11/11/23 13:10 54 L 20 136/78 95 11/11/23 12:55 65 18 125/63 98 11/11/23 12:40 58 L 24 105/65 94 11/11/23 12:25 59 L 14 150/87 H 95 11/11/23 12:10 57 L 30 H 149/82 H 96 11/11/23 12:06 68 11/11/23 11:44 80 L 11/11/23 10:35 36.3 C L 64 14 146/69 H 96 O2 Del Method O2 Flow Rate 11/11/23 13:10 Nasal Cannula 2 11/11/23 12:55 Nasal Cannula 2 11/11/23 12:40 Nasal Cannula 2 11/11/23 12:25 Nasal Cannula 2 11/11/23 12:10 Nasal Cannula 2 11/11/23 12:06 11/11/23 11:44 Room Air, Nasal Cannula 0 11/11/23 10:35 Room Air Laboratory Results 11/11/23 10:50 11/11/23 10:50 [place] [address] IN/OBS CONSULT LVL 4,60M Patient Type New Diagnoses Stroke-like symptoms R29.90 Nausea & vomiting R11.2 Dizziness R42
[2023-11-11] MEDS ORDERED: ACETAMINOPHEN 325 MG TAB PO PRN (13:51)
[2023-11-11] MEDS ORDERED: PHARMACIST DISCHARGE MED REC CONSULT PRN (13:51)
[2023-11-11] MEDS ORDERED: hydrALAZINE HCL 20 MG/ML VIAL IV PRN (14:01)
[2023-11-11] MEDS: SODIUM CHLORIDE 0.9% 1,000 ML IV SCH (14:03)
[2023-11-11] MEDS: POTASSIUM CHLORIDE / WTR 10 MEQ/100 ML PLCT IV SCH (14:22)
--- NOTE | 2023-11-11 14:32 | Electrocardiogram Report ---
Test Reason : Blood Pressure : */* mmHG Vent. Rate : 53 BPM Atrial Rate : 53 BPM P-R Int : 216 ms QRS Dur : 90 ms QT Int : 492 ms P-R-T Axes : 7 43 31 degrees QTcB Int : 461 ms Sinus bradycardia with 1st degree A-V block Low voltage QRS Borderline ECG When compared with ECG of 22-May-2018 06:17, Nonspecific T wave abnormality no longer evident in Lateral leads Confirmed by Jai White ([id number]) on 11/11/2023 2:31:36 PM Referred By: REFERRED SELF Confirmed By: Jai White
[2023-11-11] MEDS: MAGNESIUM SULFATE / D5W 1 GM/100 ML BAG IV ONE (15:17)
[2023-11-11] MEDS ORDERED: ONDANSETRON INJ 2 MG/ML 2 ML VIAL IV PRN (16:00)
[2023-11-11] MEDS ORDERED: ICU Protocol for HYPERglycemia SCH (16:30)
--- NOTE | 2023-11-11 16:41 | Magnetic Resonance Report ---
MRI OF THE BRAIN WITHOUT CONTRAST CLINICAL HISTORY: Stroke-like symptoms s/p TNK COMPARISON STUDY: Head CT and CTA of the head performed earlier today. TECHNIQUE: Utilizing a 1.5 Sandra magnet and dedicated coil, multiplanar, multiecho imaging of the bra in was performed without IV contrast. FINDINGS: There are no foci of restricted diffusion to suggest acute infarct. No acute intracranial h emorrhage, midline shift or mass effect is present. There is mild asymmetric dilatation of the left l ateral ventricle with rightward displacement of the septum pellucidum. Mild ventricular dilatation is likely related to central atrophy. The basal cisterns are patent. There are no extra axial collectio ns. Numerous white matter T2 hyperintense foci suggest small vessel disease. There is a mucous retent ion cyst within the left maxillary sinus. IMPRESSION: 1. No acute intracranial findings. 2. Mild ventricular dilatation, likely related to central atrophy. 3. Numerous small subcortical white matter T2 hyperintense foci which are nonspecific but favor small vessel disease. ACT 112: Negative or not required by law. Electronically signed by: Trevin Howell M.D. 11/11/2023 4:39 PM
[2023-11-11] MEDS: ICU Protocol for HYPERglycemia SCH (17:58)
[2023-11-11 18:16] LABS: Appearance Urine Clear (Clear); Bilirubin Urine Negative (Negative); Blood Urine Negative (Negative); Color Urine Yellow; Glucose Urine UA Negative (Negative); Ketones Urine Negative (Negative); Leukocyte Esterase Urine Negative (Negative); Nitrite Urine Negative (Negative); Protein Urine Negative (Negative); Specific Gravity Urine > 1.045 (1.000-1.030); Urobilinogen Urine Negative (Negative)
[2023-11-12 05:03] LABS: Basophils # (auto) 0.05 K/uL (0.00-0.20); Basophils % (auto) 0.6 %; Eosinophils # (auto) 0.07 K/uL (0.00-0.50); Eosinophils % (auto) 0.9 %; Hemoglobin 12.1 g/dl (12.0-16.0); Immature Granulocytes # (auto) 0.02 K/uL (0.01-0.20); Immature Granulocytes % (auto) 0.3 %; Lymphocytes # (auto) 1.88 K/uL (1.20-3.40); Mean Corpuscular Hemoglobin 27.4 pg (25.0-34.0); Mean Corpuscular Hgb Conc 32.7 g/dL (32.0-36.0); Mean Corpuscular Volume 83.9 fL (80.0-100.0); Mean Platelet Volume 9.5 fL (9.4-12.4); Monocytes # (auto) 0.52 K/uL (0.11-0.59); Monocytes % (auto) 6.6 %; Neutrophils # (auto) 5.28 K/uL (1.40-6.50); Neutrophils % (auto) 67.6 %; Platelet Count 228 K/uL (130-400); RDW Coefficient of Variation 13.8 % (11.5-14.5); RDW Standard Deviation 42.5 fL (36.4-46.3); Red Blood Count 4.41 M/uL (4.20-5.40); White Blood Count 7.82 K/ul (4.8-10.8)
[2023-11-12 05:40] LABS: Albumin Globulin Ratio 1.1 (0.9-2); Albumin Level 3.4 gm/dl (3.4-5.0); BUN Creatinine Ratio 8.6 (10-20); Bilirubin,Total 0.5 mg/dl (0.2-1.0); Calcium 8.7 mg/dl (8.6-10.3); Chol HDL Ratio 3.8 (0-5); Creatinine Clr Calc Pharmacy 87.7 ml/min; Est GFR (African American) 105.4 ml/min; Est GFR (Non-African American) 90.9 ml/min; Globulin 3.1 gm/dl (2.5-4.0); Magnesium 2.2 mg/dl (1.7-2.4); Phosphorus 3.1 mg/dl (2.5-4.9); Potassium 4.3 mmol/L (3.5-5.1); Total Protein 6.5 gm/dl (6.0-8.3)
[2023-11-12 07:25] VITALS: TEMP 97.7
[2023-11-12 07:30] LABS: Estimated Average Glucose 111 mg/dl; Hemoglobin A1C 5.5 % (4.5-5.6)
--- NOTE | 2023-11-12 07:38 | Hospitalist Progress Note ---
Date of Service November 12, 2023 Assessment & Plan (1) Stroke-like symptoms: Plan MS. Kirsten Crowder is a 63y/o F with PMHx significant for GERD, depressive disorder and sinus bradycardia who presented to the ED on 11/10 for nausea, vomiting, and dizziness and admitted for stroke now s/p TNK at 1155am 11/10. Patient reported to have slight right-sided facial drooping and rotary nystagmus on exam in ED. Patient admitted to ICU for monitoring s/p TNK administration. Patient reports facial droop and voice changes are chronic. She denies any new concerns and otherwise feels well. Likely to downgrade from ICU this afternoon. Possible discharge today v tomorrow contingent on final neuro recommendations. #Acute vertigo, c/f stroke #s/p TNK administration Head CT negative for any acute intracranial findings, yet did note mild dilatation of the lateral ventricles and multifocal white matter hypodensities. Head CTA negative for large vessel occlusion, no intracranial aneurysm. Neck CTA shows 80% focal narrowing of the proximal L subclavian artery, likely 2/2 noncalcified plaque. MRI reviewed: no acute findings, mild ventricular dilatation, numerous subcortical white matter hyperintense foci, favor small vessel disease UA negative, biofire negative -Admitted to ICU for monitoring s/p TNK Repeat CT this afternoon Echo pending Lipid panel total cholesterol 165, ldl 104 A1C 5.5% Continue Lipitor 40mg daily, ldl 104 Speech eval, PT/OT evals pending Continue Aspiration, fall precautions. Closely monitor I&O #Hypokalemia replaced in ED CTM bmp, replace prn #Sinus bradycardia stable, asymptomatic CTM tele DVT Prophylaxis: Chemoprophylaxis contraindicated following administration of TNK. No ASA w/in 24hrs of TNK administration. Code Status: FULL CODE PCP: NO PCP Disposition: Admit to ICU; downgrade likely this afternoon if stable CT Admission and Anticipated Discharge Date Admission Date: November 11, 2023 Subjective NAEO Reports baseline dysarthria and even swallows medications at home with apple sauce Denies any new symptoms States she has never experienced the dizziness she felt the day prior Patient denies any vision changes, headache, focal weakness or other acute concerns Physical Exam Constitutional: WD/WN, vitals as above Neurologic: slight right facial droop, dysarthria; however not other aberrant focal changes- -reportedly chronic per patient Results & Data Results & Data Vital Signs (Past 12 Hours) Vital Signs Temp Pulse Pulse Resp BP BP Pulse Ox 11/12/23 07:03 57 L 11/12/23 07:02 104 H 14 115/51 L 99 11/12/23 07:00 36.5 C 11/12/23 06:00 55 L 15 113/55 L 96 11/12/23 05:00 52 L 12 134/53 L 97 11/12/23 04:00 36.6 C 54 L 19 139/48 L 97 11/12/23 03:00 51 L 16 148/55 H 97 11/12/23 02:00 51 L 17 127/47 L 97 11/12/23 01:01 61 11/12/23 01:00 55 L 17 126/55 L 93 11/12/23 00:00 36.7 C 54 L 15 130/51 L 94 11/11/23 23:00 56 L 18 138/51 L 97 11/11/23 22:00 55 L 17 127/58 L 97 11/11/23 21:00 56 L 20 134/56 L 96 11/11/23 20:00 60 20 148/66 H 96 O2 Del Method O2 Flow Rate 11/12/23 07:03 11/12/23 07:02 Nasal Cannula 2 11/12/23 07:00 11/12/23 06:00 Nasal Cannula 2 11/12/23 05:00 Nasal Cannula 2 11/12/23 04:00 Nasal Cannula 2 11/12/23 03:00 Nasal Cannula 2 11/12/23 02:00 Nasal Cannula 2 11/12/23 01:01 11/12/23 01:00 Nasal Cannula 3 11/12/23 00:00 Nasal Cannula 2 11/11/23 23:00 Nasal Cannula 2 11/11/23 22:00 Nasal Cannula 2 11/11/23 21:00 Nasal Cannula 2 11/11/23 20:00 Nasal Cannula 2 Laboratory Results Short CBC 11/11/23 11/12/23 Range/Units 10:50 04:38 WBC 9.78 7.82 (4.8-10.8) K/ul Hgb 14.2 12.1 (12.0-16.0) g/dl Hct 43.2 37.0 (37.0-47.0) % Plt Count 327 228 (130-400) K/uL BMP 11/11/23 11/12/23 10:50 04:38 Sodium 137 139 Potassium 3.3 L 4.3 D Chloride 107 109 H Carbon Dioxide 22 28 BUN 9 6 Creatinine 0.73 0.70 Glucose 176 H 96 Calcium 9.7 8.7 Liver Function 11/11/23 11/12/23 Range/Units 10:50 04:38 Total Bilirubin 0.6 0.5 (0.2-1.0) mg/dl AST 11 L 10 L (13-39) U/L ALT 7 5 L (7-52) U/L Alkaline Phosphatase 113 H 83 (34-104) U/L Albumin 4.2 3.4 (3.4-5.0) gm/dl Urine 11/11/23 Range/Units 17:39 Urine Color Yellow Urine Appearance Clear (Clear) Urine pH 8.0 H (4.5-7.5) Ur Specific [place] > 1.045 H (1.000-1.030) Urine Protein Negative (Negative) Urine Glucose (UA) Negative (Negative) Medications Administered Home Medications Medication Instructions Recorded Confirmed Last Taken No Known Home Medications 05/20/18 11/11/23 Unknown Active Medications Generic Name Dose Route Start Last Admin Trade Name Rayq PRN Reason Stop Dose Admin Sodium Chloride 1,000 mls @ 125 mls/hr 11/11/23 11:00 11/12/23 07:37 Nss IV 12/11/23 10:59 125 mls/hr .Q8H NARDA Administration Miscellaneous 1 each 11/11/23 18:00 11/12/23 05:46 Icu Protocol For Hyperglycemia N/A 11/13/23 17:59 Not Given Q6 NARDA
--- NOTE | 2023-11-12 07:48 | Critical Care Progress Note ---
Date of Service November 12, 2023 Assessment & Plan (1) Stroke-like symptoms: Plan: Resolved (2) Nausea & vomiting: Plan: Resolved (3) Dizziness: Plan: Resolved Plan -- Strokelike symptoms with acute vertigo S/p TNK 11/11/2023 at 11:[address] of the head 11/11/2023, no acute intracranial findings, small vessel disease CTA of the neck shows 80% focal narrowing of the proximal left subclavian artery, likely due to noncalcified plaque MRI reviewed Awaiting neurology consultation -- GERD --Prophylaxis VTE: IPC GI: None Lines: Peripheral Diet: Previously failed bedside swallow, will repeat today -Patient reports her speech is at her baseline and feels normal Plan: Repeat CT of the head later today Aspirin after 24 hours Critical care will sign off Admission and Anticipated Discharge Date Admission Date: November 11, 2023 Subjective Patient reports she was able to use the bedside commode and now feels back to baseline. Reports her speech is normal. Would like to be discharged home today Physical Exam Physical Exam: General: Alert. nontoxic. Skin: Warm, dry, Head: Atraumatic Ears, nose, mouth and throat: airway patent Cardiovascular: Normal peripheral perfusion Respiratory: no respiratory distress Gastrointestinal: Non distended Musculoskeletal: No deformity Results & Data Results & Data Vital Signs (Past 12 Hours) Vital Signs Temp Pulse Pulse Resp BP BP Pulse Ox 11/12/23 07:03 57 L 11/12/23 07:02 104 H 14 115/51 L 99 11/12/23 07:00 36.5 C 11/12/23 06:00 55 L 15 113/55 L 96 11/12/23 05:00 52 L 12 134/53 L 97 11/12/23 04:00 36.6 C 54 L 19 139/48 L 97 11/12/23 03:00 51 L 16 148/55 H 97 11/12/23 02:00 51 L 17 127/47 L 97 11/12/23 01:01 61 11/12/23 01:00 55 L 17 126/55 L 93 11/12/23 00:00 36.7 C 54 L 15 130/51 L 94 11/11/23 23:00 56 L 18 138/51 L 97 11/11/23 22:00 55 L 17 127/58 L 97 11/11/23 21:00 56 L 20 134/56 L 96 11/11/23 20:00 60 20 148/66 H 96 O2 Del Method O2 Flow Rate 11/12/23 07:03 11/12/23 07:02 Nasal Cannula 2 11/12/23 07:00 11/12/23 06:00 Nasal Cannula 2 11/12/23 05:00 Nasal Cannula 2 11/12/23 04:00 Nasal Cannula 2 11/12/23 03:00 Nasal Cannula 2 11/12/23 02:00 Nasal Cannula 2 11/12/23 01:01 11/12/23 01:00 Nasal Cannula 3 11/12/23 00:00 Nasal Cannula 2 11/11/23 23:00 Nasal Cannula 2 11/11/23 22:00 Nasal Cannula 2 11/11/23 21:00 Nasal Cannula 2 11/11/23 20:00 Nasal Cannula 2 Critical Care Results & Data Vital Signs (Past 12 Hours) Vital Signs Temp Pulse Pulse Resp BP BP Pulse Ox 11/12/23 07:03 57 L 11/12/23 07:02 104 H 14 115/51 L 99 11/12/23 07:00 36.5 C 11/12/23 06:00 55 L 15 113/55 L 96 11/12/23 05:00 52 L 12 134/53 L 97 11/12/23 04:00 36.6 C 54 L 19 139/48 L 97 11/12/23 03:00 51 L 16 148/55 H 97 11/12/23 02:00 51 L 17 127/47 L 97 11/12/23 01:01 61 11/12/23 01:00 55 L 17 126/55 L 93 11/12/23 00:00 36.7 C 54 L 15 130/51 L 94 11/11/23 23:00 56 L 18 138/51 L 97 11/11/23 22:00 55 L 17 127/58 L 97 11/11/23 21:00 56 L 20 134/56 L 96 11/11/23 20:00 60 20 148/66 H 96 O2 Del Method O2 Flow Rate 11/12/23 07:03 11/12/23 07:02 Nasal Cannula 2 11/12/23 07:00 11/12/23 06:00 Nasal Cannula 2 11/12/23 05:00 Nasal Cannula 2 11/12/23 04:00 Nasal Cannula 2 11/12/23 03:00 Nasal Cannula 2 11/12/23 02:00 Nasal Cannula 2 11/12/23 01:01 11/12/23 01:00 Nasal Cannula 3 11/12/23 00:00 Nasal Cannula 2 11/11/23 23:00 Nasal Cannula 2 11/11/23 22:00 Nasal Cannula 2 11/11/23 21:00 Nasal Cannula 2 11/11/23 20:00 Nasal Cannula 2 Lab & Micro Results (Past 24 Hours) RBC 4.41 M/uL (4.20-5.40) 11/12/23 WBC 7.82 K/ul (4.8-10.8) 11/12/23 Hgb 12.1 g/dl (12.0-16.0) 11/12/23 Hct 37.0 % (37.0-47.0) 11/12/23 MCV 83.9 fL (80.0-100.0) 11/12/23 MCH 27.4 pg (25.0-34.0) 11/12/23 MCHC 32.7 g/dL (32.0-36.0) 11/12/23 RDW Standard Deviation 42.5 fL (36.4-46.3) 11/12/23 RDW Coefficient of Variation 13.8 % (11.5-14.5) 11/12/23 Plt Count 228 K/uL (130-400) 11/12/23 MPV 9.5 fL (9.4-12.4) 11/12/23 Neutrophils (%) (Auto) 67.6 % 11/12/23 Lymphocytes (%) (Auto) 24.0 % 11/12/23 Monocytes # (Auto) 0.52 K/uL (0.11-0.59) 11/12/23 Eosinophils # (Auto) 0.07 K/uL (0.00-0.50) 11/12/23 Immature Granulocyte % (Auto) 0.3 % 11/12/23 Neutrophils # (Auto) 5.28 K/uL (1.40-6.50) 11/12/23 Lymphocytes # (Auto) 1.88 K/uL (1.20-3.40) 11/12/23 Monocytes # (Auto) 0.52 K/uL (0.11-0.59) 11/12/23 Eosinophils # (Auto) 0.07 K/uL (0.00-0.50) 11/12/23 Basophils # (Auto) 0.05 K/uL (0.00-0.20) 11/12/23 Immature Granulocyte # (Auto) 0.02 K/uL (0.01-0.20) 4 Na 139 mmol/L (136-145) 11/12/23 K 4.3 mmol/L (3.5-5.1) 11/12/23 Cl 109 mmol/L (98-107) H 11/12/23 CO2 28 mmol/L (21-32) 11/12/23 Anion Gap 2 (3-11) L 11/12/23 BUN 6 mg/dl (6-23) 11/12/23 Creatinine 0.70 mg/dl (0.6-1.2) 11/12/23 Estimated GFR ( Amer) 105.4 ml/min 11/12/23 Estimated GFR (Non-Af Amer) 90.9 ml/min 11/12/23 BUN/Creatinine Ratio 8.6 (10-20) L 11/12/23 Glu 96 mg/dl (70-99(Fasting)) 11/12/23 Ca 8.7 mg/dl (8.6-10.3) 11/12/23 Phosphorus Level 3.1 mg/dl (2.5-4.9) 11/12/23 Total Bilirubin 0.5 mg/dl (0.2-1.0) 11/12/23 AST 10 U/L (13-39) L 11/12/23 ALT 5 U/L (7-52) L 11/12/23 Alkaline Phosphatase 83 U/L (34-104) 11/12/23 TP 6.5 gm/dl (6.0-8.3) 11/12/23 Albumin 3.4 gm/dl (3.4-5.0) 11/12/23 Globulin 3.1 gm/dl (2.5-4.0) 11/12/23 Albumin/Globulin Ratio 1.1 (0.9-2) 11/12/23 Mg 2.2 mg/dl (1.7-2.4) 11/12/23 04:38 Calcium Level 8.7 mg/dl (8.6-10.3) 11/12/23 04:38 Diagnostic Findings (Past 24 Hours) Chest X-Ray 11/11/23 10:57 XR chest 1V portable CLINICAL HISTORY: Shortness of breath. COMPARISON STUDY: Chest radiograph May 20, 2018. FINDINGS: Postoperative findings within the spine are incidentally noted. There is no pneumothorax or pleural effusion. Minimal basilar densities favor atelectasis. There is no evidence for pulmonary edema. Cardiomediastinal silhouette is unremarkable. IMPRESSION: No acute cardiopulmonary findings. ACT 112: Negative or not required by law. Electronically signed by: Trevin Howell M.D. 11/11/2023 11:[address] 11/11/23 11:14 CT OF THE HEAD WITHOUT CONTRAST CLINICAL HISTORY: neuro deficit, acute stroke suspected. Vertigo. Nausea. COMPARISON STUDY: No previous studies for comparison. TECHNIQUE: Helical axial images of the head were obtained without IV contrast. Automated exposure control was utilized for the study. A dose lowering technique was utilized adhering to the principles of ALARA. FINDINGS: No acute intracranial hemorrhage, midline shift or mass effect is present. Mild dilatation of the lateral ventricles is likely related to central atrophy. Multifocal white matter hypodensities are present. The basal cisterns are patent. No extra-axial collections are present. There are no findings to suggest acute dural sinus thrombosis or acute territorial infarct. No significant calvarial abnormalities are present. Visualized portions of the sinuses and mastoid air cells are clear. IMPRESSION: 1. No acute intracranial findings. 2. Mild dilatation of the lateral ventricles, likely related to central atrophy. 3. Multifocal white matter hypodensities. Although nonspecific, small vessel disease is favored. ACT 112: Negative or not required by law. Electronically signed by: Trevin Howell M.D. 11/11/2023 11:43 AM Head CTA 11/11/23 11:14 CTA ANGIOGRAPHY OF THE HEAD CLINICAL HISTORY: neuro deficit, acute stroke suspected. Vertigo. Nausea. COMPARISON STUDY: No previous studies for comparison. TECHNIQUE: Helical axial images of the head were obtained following uneventful intravenous administration of 119 cc of Optiray. Sagittal and coronal reconstructions were viewed as well as maximal intensity projections on an independent 3-D workstation. Automated exposure control was utilized for the study. A dose lowering technique was utilized adhering to the principles of ALARA. FINDINGS: No acute intracranial hemorrhage, midline shift or mass effect is present. Mild dilatation of the lateral ventricles is likely related to central atrophy. There are no extra axial collections. The bilateral M1, M2, A1 and A2 segments are patent. There is no intracranial aneurysm. The right vertebral artery is dominant. The intracranial portions of the vertebral arteries are patent. The basilar artery is patent. The bilateral posterior cerebral arteries are patent. The superior cerebellar arteries are patent. IMPRESSION: No large vessel occlusion. No intracranial aneurysm. ACT 112: Negative or not required by law. Electronically signed by: Trevin Howell M.D. 11/11/2023 11:55 AM Neck CTA 11/11/23 11:14 CT ANGIOGRAPHY OF THE NECK WITH CONTRAST CLINICAL HISTORY: neuro deficit, acute stroke suspected COMPARISON STUDY: No previous studies for comparison. Technique: CT angiography of the carotid and vertebral arteries was obtained using Optiray and 3D reconstruction on an independent workstation. NASCET criteria was utilized. Automated exposure control was utilized for the study. A dose lowering technique was utilized adhering to the principles of ALARA. CT DOSE: 1065.36 mGy.cm Findings: Visualized portions of the lung apices are unremarkable. There are no cervical spine fractures. Status post C6-C7 anterior discectomy and fusion. A few thyroid nodules are incidentally noted. There is no cervical lymphadenopathy. The bilateral common carotid and cervical internal carotid arteries are patent. There is mild plaque within these vessels without stenosis. The right vertebral artery is dominant and patent. There is 80% focal narrowing of the proximal left subclavian artery, likely due to noncalcified plaque. A short segment dissection is considered less likely. The left vertebral artery is somewhat diminutive but patent. There is no aneurysm within the neck. Because retention cyst within the left maxillary sinus is incidentally noted. IMPRESSION: 1. No stenoses within the bilateral common carotid or cervical internal carotid arteries. 2. 80% focal narrowing of the proximal left subclavian artery, likely due to noncalcified plaque. Unstable plaque cannot be excluded by CT. A short segment dissection could appear similar although is considered much less likely. 3. Dominant, patent right vertebral artery. Somewhat diminutive but patent left vertebral artery. ACT 112: Negative or not required by law. Electronically signed by: Trevin Howell M.D. 11/11/2023 11:51 AM Brain MRI 11/11/23 13:22 MRI OF THE BRAIN WITHOUT CONTRAST CLINICAL HISTORY: Stroke-like symptoms s/p TNK COMPARISON STUDY: Head CT and CTA of the head performed earlier today. TECHNIQUE: Utilizing a 1.5 Sandra magnet and dedicated coil, multiplanar, mu ltiecho imaging of the brain was performed without IV contrast. FINDINGS: There are no foci of restricted diffusion to suggest acute infarct. No acute intracranial hemorrhage, midline shift or mass effect is present. There is mild asymmetric dilatation of the left lateral ventricle with rightward displacement of the septum pellucidum. Mild ventricular dilatation is likely related to central atrophy. The basal cisterns are patent. There are no extra axial collections. Numerous white matter T2 hyperintense foci suggest small vessel disease. There is a mucous retention cyst within the left maxillary sinus. IMPRESSION: 1. No acute intracranial findings. 2. Mild ventricular dilatation, likely related to central atrophy. 3. Numerous small subcortical white matter T2 hyperintense foci which are nonspecific but favor small vessel disease. ACT 112: Negative or not required by law. Electronically signed by: Trevin Howell M.D. 11/11/2023 4:39 PM I & O Totals 24 Hours 11/11/23 11/12/23 11/13/23 06:59 06:59 06:59 Intake Total 1995.000 / 6329.886 6927 / 1000 Output Total 1535 / 1535 0 / 0 Balance 460.000 / 481.960 0392 / 1000 Cumulative 11/11/23 10:30 thru 11/12/23 07:26 Intake Total 2995.000 Output Total 1535 Balance 1460.000 RT Ventilator Mngmt (Last Documented) Ventilator Ordered Settings Respiratory Rate 14 11/12/23 07:02 Ventilator - PT Measurements Respiratory Rate 14 Coding Level of Care Code 55834 SUB INP/OBS CARE 1/25MIN Diagnoses Stroke-like symptoms R29.90 Nausea & vomiting R11.2 Dizziness R42
[2023-11-12] MEDS: ATORVASTATIN 40 MG TAB PO SCH (08:39)
--- NOTE | 2023-11-12 10:46 | Neurology Consultation ---
Date of Consultation November 12, 2023 Assessment & Plan (1) Dizziness: Patient presents with dizziness and nystagmus consistent with BPPV. No evidence of a cerebrovascular cause on subsequent imaging. This is a peripheral process, would not otherwise discharge on any new medications. -- Okay for discharge from our perspective after 24 hours post-TNK -- No further medication recommendations -- Can be referred to balance center if vertigo recurs/becomes chronic Telehealth Consultation Telehealth Information Telehealth Information: I performed this visit using a real-time telehealth connection between my location and the patients location ([facility]). After connecting through interactive tele-video, patient was identified by name and date of and/or wristband check.Patient (or authorized healthcare technical sales representative) was informed that this was a telemedicine visit and it was being conducted confidentially over secure lines. My office door was closed and no one else was present in the room with me.Patient (or authorized healthcare technical sales representative) provided consent to proceed with the visit, expressed an understanding of privacy and security of the telemedicine visit, and gave permission to have a hospital technical sales representative in the room in order to assist with the visit and to conduct portions of the visit, as needed. I informed the patient (or authorized healthcare technical sales representative) that I reviewed their record and presented the opportunity for them to ask any questions regarding the visit today. The patient agreed to participate. History of Present Illness Reason for Consultation: Vertigo s/p TNK Requesting Physician: Dr. Youngblood Attending Physician: Sara Youngblood MD History of Present Illness Kirsten Crowder is a 63 yo F presenting with acute onset vertigo with nausea and vomiting, who received TNK in the ED for possible stroke. Patient is back to her baseline currently, no further vertigo. She has never had vertigo like that in the past. No change in hearing but at baseline is [place]. Denies any weakness, numbness, vision changes. No hx of stroke. Allergies Allergy/AdvReac Type Severity Reaction Status Date / Time diphenhydramine Allergy Severe THROAT Verified 05/20/18 03:05 SWELLS, CAN'T BREATHE naproxen Allergy Severe THROAT Verified 05/20/18 03:05 SWELLS, CAN'T BREATHE sertraline Allergy Severe THROAT Verified 05/20/18 03:05 SWELLS, CAN'T BREATHE Sulfa (Sulfonamide Allergy Severe THROAT Verified 05/20/18 03:05 Antibiotics) SWELLS, CAN'T BREATHE tramadol Allergy Severe THROAT Verified 05/20/18 03:05 SWELLS, CAN'T BREATHE Home Medications Medication Instructions Recorded Confirmed Type No Known Home Medications 05/20/18 11/11/23 History Patient History Medical History (Updated 11/11/23 @ 13:24 by Shanelle Bishop PA-C) No significant past medical history Social History Smoking Status: Never smoker Second Hand Exposure: No; Do You Dip or Chew Tobacco: No; Hx Alcohol Use: No Hx Substance Use: No Preferred Language: [place] Communication Ability: Effective Button Spindler Required: No Beliefs That Will Affect Care: None Current Living Situation: Spouse Other Information That Helps Us Care for You: No Feels Safe at Home: Yes Safety Concerns: Feels Safe At This Time Assistive Devices: Denture - Upper Review of Systems No complaints today. Physical Exam Awake and alert, speech fluent and non-dysarthric. Chronic R facial droop. Full strength without ataxia in all four extremities. Results & Data Vital Signs (Past 12 Hours) Vital Signs Temp Pulse Pulse Resp BP BP Pulse Ox 11/12/23 10:00 84 20 142/84 H 97 11/12/23 09:00 66 18 120/85 97 11/12/23 08:00 55 L 18 120/46 L 92 11/12/23 07:51 11/12/23 07:03 57 L 11/12/23 07:02 104 H 14 115/51 L 99 11/12/23 07:00 36.5 C 11/12/23 06:00 55 L 15 113/55 L 96 11/12/23 05:00 52 L 12 134/53 L 97 11/12/23 04:00 36.6 C 54 L 19 139/48 L 97 11/12/23 03:00 51 L 16 148/55 H 97 11/12/23 02:00 51 L 17 127/47 L 97 11/12/23 01:01 61 11/12/23 01:00 55 L 17 126/55 L 93 11/12/23 00:00 36.7 C 54 L 15 130/51 L 94 11/11/23 23:00 56 L 18 138/51 L 97 O2 Del Method O2 Flow Rate 11/12/23 10:00 Room Air 11/12/23 09:00 Room Air 11/12/23 08:00 Room Air 11/12/23 07:51 Room Air 11/12/23 07:03 11/12/23 07:02 Nasal Cannula 2 11/12/23 07:00 11/12/23 06:00 Nasal Cannula 2 11/12/23 05:00 Nasal Cannula 2 11/12/23 04:00 Nasal Cannula 2 11/12/23 03:00 Nasal Cannula 2 11/12/23 02:00 Nasal Cannula 2 11/12/23 01:01 11/12/23 01:00 Nasal Cannula 3 11/12/23 00:00 Nasal Cannula 2 11/11/23 23:00 Nasal Cannula 2 Diagnostic Findings MRI brain unremarkable CTA unremarkable
[2023-11-12 11:06] VITALS: PULSE 64; RESP 18
--- NOTE | 2023-11-12 11:13 | Discharge Summary ---
Discharge Summary Date of Service November 12, 2023 Principal Dx & Hospital Course #1 = Principal Diagnosis (1) Stroke-like symptoms: Plan MSCurly Crowder is a 63y/o F with PMHx significant for GERD, depressive disorder and sinus bradycardia who presented to the ED on 11/10 for nausea, vomiting, and dizziness and admitted for stroke now s/p TNK at 1155am 11/10. Patient reported to have slight right-sided facial drooping and rotary nystagmus on exam in ED. Patient admitted to ICU for monitoring s/p TNK administration. Patient reports facial droop and voice changes are chronic. She denies any new concerns and otherwise feels well. Patient evaluated by neuro who suspects that symptoms are BPPV. Neuro recommends no new medications at this time. Repeat CT head negative for signs of bleed. On day of discharge, patient reports feeling at baseline with no new concerns or needs. Discussed need to establish with PCP, patient verbalized understanding. #Acute vertigo, c/f stroke #BPPV #s/p TNK administration Head CT negative for any acute intracranial findings, yet did note mild dilatation of the lateral ventricles and multifocal white matter hypodensities. Head CTA negative for large vessel occlusion, no intracranial aneurysm. Neck CTA shows 80% focal narrowing of the proximal L subclavian artery, likely 2/2 noncalcified plaque. MRI reviewed: no acute findings, mild ventricular dilatation, numerous subcortical white matter hyperintense foci, favor small vessel disease UA negative, biofire negative -Admitted to ICU for monitoring s/p TNK Repeat CT this afternoon Echo pending Lipid panel total cholesterol 165, ldl 104 A1C 5.5% discontinue statin Encouraged PCP followup Speech eval:continue soft diet #Hypokalemia replaced in ED #Sinus bradycardia stable, asymptomatic Notes For Next Care Provider Medication Changes From Visit None Admission HPI Per Admitting Provider Kirsten Crowder is a 63y/o F with PMHx significant for GERD, depressive disorder and sinus bradycardia who presented to the ED for evaluation secondary to an acute onset of dizziness and nausea/vomiting. History obtained from patient, at bedside, ED provider and associated chart review. Evidence of slight right-sided facial drooping and rotary nystagmus on exam in ED. Stroke alert was therefore called. Emergent head CT with no acute intracranial findings, but did note multifocal white matter hypodensities in addition to mild dilatation of the lateral ventricles. Last known well was around 10 AM this morning. Telestroke service was consulted. Recommended administering TNK. 21mg TNK was administered at 11:55. Patient's , [place], reports the patient was acting completely fine at their house this morning. She had left a little after 9AM to go let her son's dog out. Around 10AM, the patient called her and reported that he needed to immediately come to her son's house. reports that she was vomiting, dizzy and "not acting like herself" when he arrived to the house. He did not appreciate any facial drooping when he first got to her. He emergently put her in the passenger seat and brought her to the ED for evaluation. He mentions that she has not been sick recently and overall has been acting like herself in the recent days past. No significant medical history per her . She does not take any prescription medications. He does report that she has had significant difficulty swallowing pills for the past 30+ years. They have to crush any pills that she would take because they get "stuck in her throat" and sometimes cause her to choke. He mentions that she sometimes has difficulty eating due to food "getting stuck," but overall she is able to swallow food okay. Admission Exam Per Admitting Provider General: WD/WN, vitals as above, NAD, head resting at an incline, very hard of hearing, A+Ox2, very responsive to verbal commands. HEENT: Normocephalic, atraumatic. Conjunctivae normal, anicteric sclerae, horizontal nystagmus noted, oropharynx appears slightly dry. Respiratory: Normal respiratory effort, lungs clear to auscultation, no wheeze, rales, rhonchi. No accessory muscle use. Cardiovascular: Regular rate, rhythm, no murmur, normal peripheral pulses, no BLE edema. Vessels: No JVD. Abdomen/GI: Normal bowel sounds, soft, nontender, no hepatosplenomegaly. Extremities/Musculoskeletal: No cyanosis or clubbing, extremities motor strength intact, moves all extremities. Neurologic: Right-sided facial drooping improved, slower speech but answering questions appropriately, no pronator drift. Skin: No rashes, normal color, warm/dry. Discharge Exam Constitutional WD/WN, vitals as above Respiratory normal respiratory effort, lungs clear to auscultation Cardiovascular RRR, no murmur, no edema Musculoskeletal no cyanosis or clubbing, extremities motor strength 5/5 Neurologic right facial droop, chronic per patient; dysarthria/speech changes, chronic at baseline per patient; no other focal neuro deficits noted Updated Medication List Medication Instructions Recorded Confirmed Type No Known Home Medications 05/20/18 11/11/23 History Hospital Stay Data Consultations 11/11/23 13:16 Consult Electro Mechanical Engineer Routine 11/11/23 13:22 Consult Neurology Routine 11/11/23 13:34 ED Decision to Admit Stat Diagnostic Imagining Performed 11/11/23 11:14 CT angio head w con Stat CT angio neck with con Stat CT head/brain wo con Stat 11/11/23 13:22 MR brain wo con Urgent 11/12/23 08:00 CT head/brain wo con DAILY Pending Results Patient Have Any Pending Studies at Discharge: No Discharge Instructions Given to Patient (Per Discharging Provider) You were admitted for concerns of stroke and given medication to aid in release of blockages. Further imaging did not reveal any injury consistent with stoke. Your symptoms are though to be related to BPPV, or benign paroxsymal positional vertigo. Please establish with a PCP to discuss further evaluation and management should symptoms present again. Total Time Total Time Spent Total Time Spent (In Minutes): 45
[2023-11-12 12:09] VITALS: BP 125/55; O2SAT 91
[2023-11-12] MEDS ORDERED: STROKE PATIENT DISCHARGE STA (12:28)
--- NOTE | 2023-11-12 12:46 | CT Scan Report ---
HEAD CT NONCONTRAST CT DOSE: 547.75 mGy.cm HISTORY: S/p TNK administration TECHNIQUE: Multiaxial CT images of the head were performed without the use of intravenous contrast. A utomated exposure control was utilized for this study. A dose lowering technique was utilized adheri ng to the principles of ALARA. Comparison: Head CT 11/11/2023. Findings: The paranasal sinuses and mastoid air cells are clear. The calvarium and skull base are int act. There is no mass, hematoma, midline shift, acute infarct. White matter hypodensity is nonspecifi c but suggestive of microvascular ischemic change. The ventricles and sulci demonstrate mild age-rela clive involutional changes. Stable dilatation of the lateral ventricles which is nonspecific but could be due to central volume loss. Impression: 1. No acute 23infarct or intracranial hemorrhage. 2. Mild dilatation of the lateral ventricles, unchanged. This could be due to central atrophy. 3. Microvascular ischemic changes again noted. ACT 112: Negative or not required by law. Electronically signed by: Ivan Lafleur M.D. 11/12/2023 12:44 PM
== END 2023-11-12 14:01 | disposition home or self-care (01) | DRG 149 ==
LOC: ED 10:30 → SUATTDRO 13:16 → 1E 13:16

== ENCOUNTER 2024-08-01 23:36 | Observation (INO) ==
[2024-08-02 00:06] LABS: Basophils # (auto) 0.04 K/uL (0.00-0.20); Basophils % (auto) 0.4 %; Eosinophils # (auto) 0.01 K/uL (0.00-0.50); Eosinophils % (auto) 0.1 %; Hematocrit (blood only) 41.2 % (37.0-47.0); Hemoglobin 13.7 g/dl (12.0-16.0); Immature Granulocytes # (auto) 0.02 K/uL (0.01-0.20); Immature Granulocytes % (auto) 0.2 %; Lymphocytes # (auto) 0.92 K/uL (1.20-3.40); Lymphocytes % (auto) 8.6 %; Mean Corpuscular Hemoglobin 27.1 pg (25.0-34.0); Mean Corpuscular Hgb Conc 33.3 g/dL (32.0-36.0); Mean Corpuscular Volume 81.6 fL (80.0-100.0); Mean Platelet Volume 9.8 fL (9.4-12.4); Monocytes # (auto) 0.23 K/uL (0.11-0.59); Monocytes % (auto) 2.2 %; Neutrophils # (auto) 9.46 K/uL (1.40-6.50); Neutrophils % (auto) 88.5 %; Platelet Count 245 K/uL (130-400); RDW Coefficient of Variation 13.1 % (11.5-14.5); RDW Standard Deviation 38.5 fL (36.4-46.3); Red Blood Count 5.05 M/uL (4.20-5.40); White Blood Count 10.68 K/ul (4.8-10.8)
[2024-08-02 00:24] LABS: Alanine Aminotransferase 8 U/L (7-52); Albumin Globulin Ratio 1.1 (0.9-2); Albumin Level 4.3 gm/dl (3.4-5.0); Alkaline Phosphatase 98 U/L (34-104); Anion Gap 12 (3-11); Aspartate Aminotransferase 12 U/L (13-39); BUN Creatinine Ratio 16.2 (10-20); Bilirubin,Total 0.4 mg/dl (0.2-1.0); Blood Urea Nitrogen 11 mg/dl (6-23); Calcium 9.7 mg/dl (8.6-10.3); Carbon Dioxide 24 mmol/L (21-32); Chloride 103 mmol/L (98-107); Globulin 3.8 gm/dl (2.5-4.0); Glucose 189 mg/dl (70-99(Fasting)); Magnesium 1.8 mg/dl (1.7-2.4); Potassium 3.6 mmol/L (3.5-5.1); Sodium 139 mmol/L (136-145); Total Protein 8.1 gm/dl (6.0-8.3)
--- NOTE | 2024-08-02 00:40 | Emergency Department Note ---
Impression & Plan Vertigo ED Provider Note CHIEF COMPLAINT: Vertigo HISTORY OF PRESENT ILLNESS: This 64 yo female patient past medical history of vertigo, hearing loss presents to the emergency department with complaints of sudden onset of dizziness, nausea today while caring for her son's dog. She denies any falls or head injuries. denies any recent illnesses. She has been vomiting since the onset several hours ago. Patient's mentions that this has happened to her in the past and she was diagnosed with vertigo. She is quite hard of hearing and gives much of the history. Patient denies any difficulty with urination. REVIEW OF SYSTEMS: A review of systems was performed with positives and pertinent negatives listed in the history of present illness. 10 systems were reviewed and are otherwise negative. ALLERGIES: see below MEDICATIONS: see below PMH: see below SOCIAL HISTORY: see below DDx: Benign positional vertigo, stroke, intracranial hemorrhage, dehydration, electrolyte abnormality among others PHYSICAL EXAM: Vital signs reviewed. General: Well-appearing 64 yo female, in no significant distress. HEENT: No scleral icterus, PERRLA, neck supple. MMM. Hard of hearing. Cardiovascular: Regular rate and rhythm, no extra sounds. Pulmonary: Clear to auscultation bilaterally, normal work of breathing. Abdomen: Soft, nontender, nondistended, positive bowel sounds. Musculoskeletal: Atraumatic, no peripheral edema. Neurologic: Patient awake alert and oriented x 3, speech is clear. Positive horizontal nystagmus, equal plant tech strength, equal lower extremity strength to straight leg raise. Skin: Warm, dry, no rash EMERGENCY DEPARTMENT COURSE/MDM: This patient was evaluated and appeared to be in no significant distress. IV access was obtained and laboratory work was drawn. The patient was placed on the conveyor monitor and noted to be in a normal sinus rhythm. IV fluids were initiated, the patient has a Benadryl allergy and therefore was given 1 mg of IV Ativan, 4 mg of IV Zofran. Laboratory work is fairly reassuring. Patient had an extensive workup recently and had been given TNK at that point. Her presentation was very similar. Neurology felt that the patient was suffering from a benign positional vertigo. On my reevaluation the patient continued to have spinning anytime she opened her eyes. She was given additional 4 mg of IV Zofran. She will be evaluated by the hospitalist service for admission and further management due to the intractable vertiginous symptoms. Patient and are aware of the plan and agreed. MONITORING: An order for cardiac monitoring was placed and the patient is noted to be in a NSR at 63 beats per minute. RADIOLOGY: Chest x-ray to my interpretation reveals no evidence of focal lung consolidation or failure. IMPRESSION: 1. No interval changes could be seen, in terms of stable, mildly enlarged lateral ventricles, with bilateral periventricular white matter changes related to chronic small vessel disease. 2. No acute brain pathology. DISPOSITION: Admit Past Med/Surg History Problem List (Updated 08/02/24 @ 06: by Erin Gutierrez MD) Vertigo (Acute) Acute cholecystitis Encounter for pre-operative examination Ventricular ectopic beats Sinus bradycardia Biliary colic (Acute) Medical History (Updated 08/02/24 @ : by Erin Gutierrez MD) Stroke-like symptoms Nausea & vomiting Dizziness No significant past medical history Social History (Reviewed 08/02/24 @ : by Erin Gutierrez MD) Smoking Status: Never smoker Second Hand Exposure: No; Do You Dip or Chew Tobacco: No; Hx Alcohol Use: No Hx Substance Use: No Preferred Language: [place] Communication Ability: Effective Business Office Coordinator Required: No Beliefs That Will Affect Care: None Current Living Situation: Spouse Feels Safe at Home: Yes Assistive Devices: Denture - Upper Allergies Allergies Allergy/AdvReac Type Severity Reaction Status Date / Time diphenhydramine Allergy Severe THROAT Verified 08/02/24 00:26 SWELLS, CAN'T BREATHE naproxen Allergy Severe THROAT Verified 08/02/24 00:26 SWELLS, CAN'T BREATHE sertraline Allergy Severe THROAT Verified 08/02/24 00:26 SWELLS, CAN'T BREATHE Sulfa (Sulfonamide Allergy Severe THROAT Verified 08/02/24 00:26 Antibiotics) SWELLS, CAN'T BREATHE tramadol Allergy Severe THROAT Verified 08/02/24 00:26 SWELLS, CAN'T BREATHE Home Meds Home Medications Medication Instructions Recorded Confirmed No Known Home Medications 05/20/18 08/02/24 Results & Data (ED) Vital Signs Vital Signs - 24 hr 08/01/24 23:39 08/01/24 23:56 08/02/24 00:16 Temperature 36.5 C Temperature Source Temporal Artery Scan Pulse Rate 77 63 Pulse Rate [Right Finger] Respiratory Rate 20 Respiratory Effort / Characteristics Non-Labored Spontaneous Respiratory Depth Normal Blood Pressure 181/63 H Blood Pressure [Right Arm] Blood Pressure Mean 102 Blood Pressure Mean [Right Arm] Pulse Oximetry 96 82 L Oxygen Delivery Method Room Air Room Air Oxygen Flow Rate Sepsis Recent Fever Within 48 Hours No Sepsis New/Unexplained Change in Mental Status No Sepsis Action Taken by Nursing No Action Required 08/02/24 00:16 08/02/24 00:51 08/02/24 01:54 Temperature Temperature Source Pulse Rate 58 L 55 L Pulse Rate [Right Finger] Respiratory Rate 20 18 Respiratory Effort / Characteristics Respiratory Depth Blood Pressure 145/66 H 130/78 Blood Pressure [Right Arm] Blood Pressure Mean 92 95 Blood Pressure Mean [Right Arm] Pulse Oximetry 97 96 98 Oxygen Delivery Method Nasal Cannula Oxygen Flow Rate 2 Sepsis Recent Fever Within 48 Hours Sepsis New/Unexplained Change in Mental Status Sepsis Action Taken by Nursing 08/02/24 02:54 08/02/24 03:00 08/02/24 03:48 Temperature 36.8 C Temperature Source Oral Pulse Rate 63 59 L Pulse Rate [Right Finger] 65 Respiratory Rate 16 19 Respiratory Effort / Characteristics Respiratory Depth Blood Pressure 138/61 Blood Pressure [Right Arm] 148/75 H Blood Pressure Mean 86 Blood Pressure Mean [Right Arm] 99 Pulse Oximetry 98 99 Oxygen Delivery Method Nasal Cannula Oxygen Flow Rate 2 Sepsis Recent Fever Within 48 Hours Sepsis New/Unexplained Change in Mental Status Sepsis Action Taken by Nursing 08/02/24 05:00 Temperature Temperature Source Pulse Rate Pulse Rate [Right Finger] 62 Respiratory Rate 20 Respiratory Effort / Characteristics Non-Labored Spontaneous Respiratory Depth Normal Blood Pressure Blood Pressure [Right Arm] 133/57 L Blood Pressure Mean Blood Pressure Mean [Right Arm] 82 Pulse Oximetry 98 Oxygen Delivery Method Nasal Cannula Oxygen Flow Rate 2 Sepsis Recent Fever Within 48 Hours Sepsis New/Unexplained Change in Mental Status Sepsis Action Taken by Long Term Medications Current Medication List: was personally reviewed by me Laboratory Data Attestation: I reviewed the patient's lab results. 08/01/24 23:51 08/01/24 23:51 Lab Results 08/01/24 08/02/24 Range/Units 23:51 03:41 WBC 10.68 (4.8-10.8) K/ul RBC 5.05 (4.20-5.40) M/uL Hgb 13.7 (12.0-16.0) g/dl Hct 41.2 (37.0-47.0) % MCV 81.6 (80.0-100.0) fL MCH 27.1 (25.0-34.0) pg MCHC 33.3 (32.0-36.0) g/dL RDW Std Deviation 38.5 (36.4-46.3) fL RDW Coeff of [place] 13.1 (11.5-14.5) % Plt Count 245 (130-400) K/uL MPV 9.8 (9.4-12.4) fL Immature Gran % (Auto) 0.2 % Neut % (Auto) 88.5 % Lymph % (Auto) 8.6 % [place] % (Auto) 2.2 % Eos % (Auto) 0.1 % Baso % (Auto) 0.4 % Neut # (Auto) 9.46 H (1.40-6.50) K/uL Lymph # (Auto) 0.92 L (1.20-3.40) K/uL [place] # (Auto) 0.23 (0.11-0.59) K/uL Eos # (Auto) 0.01 (0.00-0.50) K/uL Baso # (Auto) 0.04 (0.00-0.20) K/uL Immature Gran # (Auto) 0.02 (0.01-0.20) K/uL Sodium 139 (136-145) mmol/L Potassium 3.6 (3.5-5.1) mmol/L Chloride 103 (98-107) mmol/L Carbon Dioxide 24 (21-32) mmol/L Anion Gap 12 H (3-11) BUN 11 (6-23) mg/dl Creatinine 0.68 (0.6-1.2) mg/dl Est Cr Clr Drug Dosing Not Reportable eGFR 95.99 BUN/Creatinine Ratio 16.2 (10-20) Glucose 189 H (70-99(Fasting)) mg/dl Calcium 9.7 (8.6-10.3) mg/dl Magnesium 1.8 (1.7-2.4) mg/dl Total Bilirubin 0.4 (0.2-1.0) mg/dl AST 12 L (13-39) U/L ALT 8 (7-52) U/L Alkaline Phosphatase 98 (34-104) U/L Total Protein 8.1 (6.0-8.3) gm/dl Albumin 4.3 (3.4-5.0) gm/dl Globulin 3.8 (2.5-4.0) gm/dl Albumin/Globulin Ratio 1.1 (0.9-2) Urine Color Yellow Urine Appearance Clear (Clear) Urine pH 7.0 (4.5-7.5) Ur Specific [place] 1.011 (1.000-1.030) Urine Protein Negative (Negative) Urine Glucose (UA) Negative (Negative) Urine Ketones Trace H (Negative) Urine Blood Negative (Negative) Urine Nitrite Negative (Negative) Urine Bilirubin Negative (Negative) Urine Urobilinogen Negative (Negative) Ur Leukocyte Esterase Negative (Negative) Urine Comment Administered Medications Sodium Chloride (Nss) 500 mls @ 999 mls/hr IV .Q31M ONE Stop: 08/02/24 06:26 Last Admin: 08/02/24 06:20 Dose: 999 mls/hr Documented By: AN Discontinued Medications Acetaminophen (Ofirmev) 1,000 mg in 100 mls @ 400 mls/hr IV NOW STA Stop: 08/02/24 06:09 Last Admin: 08/02/24 06:19 Dose: 400 mls/hr Documented By: JOSE Lorazepam (Lorazepam 2 Mg/1 Ml Vial) 0.5 mg IV NOW STA Stop: 08/01/24 23:53 Last Admin: 08/01/24 23:59 Dose: 0.5 mg Documented By: UVALDO Meclizine HCl (Meclizine Hcl 25 Mg Tab) 25 mg PO NOW STA Stop: 08/02/24 05:56 Last Admin: 08/02/24 06:19 Dose: 25 mg Documented By: JOSE Ondansetron HCl (Ondansetron Inj 2 Mg/Ml 2 Ml Vial) 4 mg IV NOW STA Stop: 08/01/24 23:52 Last Admin: 08/01/24 23:59 Dose: 4 mg Documented By: UVALDO Ondansetron HCl (Ondansetron Inj 2 Mg/Ml 2 Ml Vial) 4 mg IV NOW STA Stop: 08/02/24 02:46 Last Admin: 08/02/24 03:10 Dose: 4 mg Documented By: DIPAK Imaging Data Radiologist's Impression: Chest X-Ray 08/01/24 23:51 EXAM: XR chest 1V portable CLINICAL HISTORY: vertigo. TECHNIQUE: An X-ray image of the chest is obtained in AP projection. COMPARISON: 11/11/2023. FINDINGS: Pulmonary Parenchyma: Accentuated bronchovascular markings of both lung echavarria. No interval change. No evidence of consolidation, collapse, or focal opacities. No pulmonary nodules are identified. No evidence of pleural effusion or pleural thickening. Heart and Mediastinum: Heart size and shape are normal. No mediastinal widening or masses. No hilar or mediastinal lymphadenopathy. Bony Thorax: Internal fixation of the lower cervical spine with metallic prosthesis. No interval change. Bony thorax appears intact without fractures or deformities. Soft Tissues: Soft tissues overlying the chest wall are unremarkable. IMPRESSION: Accentuated bronchovascular markings of both lung echavarria. No interval change. Electronically signed by Marcus Yoon 08-02-2024 01:[address] 08/02/24 02:45 EXAM: CT head/brain wo con CLINICAL HISTORY: Vertigo. TECHNIQUE: Axial non-contrast CT scan of the brain was performed from the skull base to the high parietal region. One of the following dose reduction techniques was utilized for this exam: Automated exposure control, adjustment of the mA and/or kV according to patient size, use of iterative reconstruction. COMPARISON: Prior head CT on 11/12/2023. FINDINGS: Ventricular System: Mildly dilated lateral ventricles with mild signs of subependymal edema. 3rd and 4th ventricles are normal in size and configuration. Brain Parenchyma: Bilateral periventricular white matter hypodense foci, indicating chronic small vessel disease. Normal attenuation of the cerebellum and brainstem. No evidence of acute infarct, hemorrhage, or mass effect. No abnormal areas of hyperattenuation. Subarachnoid Spaces: No evidence of subarachnoid hemorrhage or extra-axial fluid collections. Cerebellum and Brainstem: No masses, lesions, or areas of abnormal density. Orbits: Normal appearance of the globes, optic nerves, and extraocular muscles. No evidence of orbital masses or abnormal density. Sinuses: Clear paranasal sinuses. No evidence of sinusitis or mucosal thickening. Mastoid Air Cells: Clear mastoid air cells. No evidence of mastoiditis. Skull: Normal skull morphology. IMPRESSION: 1. No interval changes could be seen, in terms of stable, mildly enlarged lateral ventricles, with bilateral periventricular white matter changes related to chronic small vessel disease. 2. No acute brain pathology. Electronically signed by Marcus Yoon 08-02-2024 04:37 AM Discharge Plan Visit Data Chief Complaint: Vertigo Stated Complaint: VERTIGO ED Provider: Erin Gutierrez Discharge Problem: Vertigo Patient Disposition: Admitted As Inpatient Condition: Fair Forms Stand Alone Forms: [facility], Important Visit Information Prescriptions Prescriptions: No Action No Known Home Medications Referrals Referrals: PCP,NO [Primary Care Provider] -
--- NOTE | 2024-08-02 01:52 | XRay Report ---
EXAM: XR chest 1V portable CLINICAL HISTORY: vertigo. TECHNIQUE: An X-ray image of the chest is obtained in AP projection. COMPARISON: 11/11/2023. FINDINGS: Pulmonary Parenchyma: Accentuated bronchovascular markings of both lung echavarria. No interval change. No evidence of consolidation, collapse, or focal opacities. No pulmonary nodules are identified. No evidence of pleural effusion or pleural thickening. Heart and Mediastinum: Heart size and shape are normal. No mediastinal widening or masses. No hilar or mediastinal lymphadenopathy. Bony Thorax: Internal fixation of the lower cervical spine with metallic prosthesis. No interval change. Bony thorax appears intact without fractures or deformities. Soft Tissues: Soft tissues overlying the chest wall are unremarkable. IMPRESSION: Accentuated bronchovascular markings of both lung echavarria. No interval change. Electronically signed by Marcus Yoon 08-02-2024 01:51 AM
[2024-08-02 03:55] LABS: Appearance Urine Clear (Clear); Bilirubin Urine Negative (Negative); Blood Urine Negative (Negative); Color Urine Yellow; Glucose Urine UA Negative (Negative); Ketones Urine Trace (Negative); Leukocyte Esterase Urine Negative (Negative); Nitrite Urine Negative (Negative); Protein Urine Negative (Negative); Specific Gravity Urine 1.011 (1.000-1.030); Urobilinogen Urine Negative (Negative)
--- NOTE | 2024-08-02 04:37 | CT Scan Report ---
EXAM: CT head/brain wo con CLINICAL HISTORY: Vertigo. TECHNIQUE: Axial non-contrast CT scan of the brain was performed from the skull base to the high parietal region. One of the following dose reduction techniques was utilized for this exam: Automated exposure control, adjustment of the mA and/or kV according to patient size, use of iterative reconstruction. COMPARISON: Prior head CT on 11/12/2023. FINDINGS: Ventricular System: Mildly dilated lateral ventricles with mild signs of subependymal edema. 3rd and 4th ventricles are normal in size and configuration. Brain Parenchyma: Bilateral periventricular white matter hypodense foci, indicating chronic small vessel disease. Normal attenuation of the cerebellum and brainstem. No evidence of acute infarct, hemorrhage, or mass effect. No abnormal areas of hyperattenuation. Subarachnoid Spaces: No evidence of subarachnoid hemorrhage or extra-axial fluid collections. Cerebellum and Brainstem: No masses, lesions, or areas of abnormal density. Orbits: Normal appearance of the globes, optic nerves, and extraocular muscles. No evidence of orbital masses or abnormal density. Sinuses: Clear paranasal sinuses. No evidence of sinusitis or mucosal thickening. Mastoid Air Cells: Clear mastoid air cells. No evidence of mastoiditis. Skull: Normal skull morphology. IMPRESSION: 1. No interval changes could be seen, in terms of stable, mildly enlarged lateral ventricles, with bilateral periventricular white matter changes related to chronic small vessel disease. 2. No acute brain pathology. Electronically signed by Marcus Yoon 08-02-2024 04:37 AM
--- NOTE | 2024-08-02 06:11 | History & Physical Report ---
Date of Service August 02, 2024 Assessment & Plan (1) Vertigo: Plan: 64-year-old female who does not go to doctors and not take any medications presents with vertigo, nausea and headache. Patient is very hard of hearing. in the room and helped with H&P. Patient was at her son's place to take care of her dog. And she developed nausea headache and spinning of the room. When she stands up she feels like falling down. Patient says the headache is currently getting better. Nausea is better. But still feeling dizzy and room spinning. Vision is okay. Was having some runny nose when she was nauseous. Has no cough. No fevers. Her chest was hurting when she was having vomitings but currently resolved. No shortness of breath. No belly pain. Normal bowel and bladder movements. Patient has similar episode in November 2023 when she presented with dizziness and nausea and vomiting and at that time there was some slight right facial droop and rotary nystagmus on exam and stroke alert was called and she was status post TNK. Her CAT scans were unremarkable Except neck CTA showing 80% focal narrowing in the proximal left subclavian artery and MRI scan was okay and neurology thought her symptoms most likely BPPV. She was discharged home to follow with PCP. Patient did not followed with a PCP. Currently resting comfortably and hemodynamics stable. Vertigo Nausea and vomiting and headache Similar presentation last year in November to the thought to be from BPPV CAT scan today: No interval changes could be seen, in terms of stable, mildly enlarged lateral ventricles, with bilateral periventricular white matter changes related to chronic small vessel disease. 2. No acute brain pathology. Will keep n.p.o., IV fluids, IV antiemetics as needed, IV Tylenol as needed and meclizine as needed Will follow CTA head and neck and MRI brain Telemetry Neuroconsult in a.m. for further recommendation Will monitor the hemodynamics DVT prophylaxis SCDs for now Disposition Telemetry Full code History of Present Illness Chief Complaint: Vertigo, nausea and headache Primary Care Provider: NO PCP 64-year-old female who does not go to doctors and not take any medications presents with vertigo, nausea and headache. Patient is very hard of hearing. in the room and helped with H&P. Patient was at her son's place to take care of her dog. And she developed nausea headache and spinning of the room. When she stands up she feels like falling down. Patient says the headache is currently getting better. Nausea is better. But still feeling dizzy and room spinning. Vision is okay. Was having some runny nose when she was nauseous. Has no cough. No fevers. Her chest was hurting when she was having vomitings but currently resolved. No shortness of breath. No belly pain. Normal bowel and bladder movements. Patient has similar episode in November 2023 when she presented with dizziness and nausea and vomiting and at that time there was some slight right facial droop and rotary nystagmus on exam and stroke alert was called and she was status post TNK. Her CAT scans were unremarkable Except neck CTA showing 80% focal narrowing in the proximal left subclavian artery and MRI scan was okay and neurology thought her symptoms most likely BPPV. She was discharged home to follow with PCP. Patient did not followed with a PCP. Currently resting comfortably and hemodynamics stable. Past medical history. BPPV Past surgical history cholecystectomy and hip surgery Social history. No smoking. No alcohol use. No drug use. Family history. No significant family history Allergies Allergy/AdvReac Type Severity Reaction Status Date / Time diphenhydramine Allergy Severe THROAT Verified 08/02/24 00:26 SWELLS, CAN'T BREATHE naproxen Allergy Severe THROAT Verified 08/02/24 00:26 SWELLS, CAN'T BREATHE sertraline Allergy Severe THROAT Verified 08/02/24 00:26 SWELLS, CAN'T BREATHE Sulfa (Sulfonamide Allergy Severe THROAT Verified 08/02/24 00:26 Antibiotics) SWELLS, CAN'T BREATHE tramadol Allergy Severe THROAT Verified 08/02/24 00:26 SWELLS, CAN'T BREATHE Home Medications Medication Instructions Recorded Confirmed Type No Known Home Medications 05/20/18 08/02/24 History Past Med/Surg History Problem List (Updated 08/02/24 @ : by Erin Gutierrez MD) Vertigo (Acute) Acute cholecystitis Encounter for pre-operative examination Ventricular ectopic beats Sinus bradycardia Biliary colic (Acute) Medical History (Updated 08/02/24 @ : by Erin Gutierrez MD) Stroke-like symptoms Nausea & vomiting Dizziness No significant past medical history Social History Smoking Status: Never smoker Second Hand Exposure: No; Do You Dip or Chew Tobacco: No; Hx Alcohol Use: No Hx Substance Use: No Preferred Language: Italian Communication Ability: Effective 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 Lungs- clear to auscultation no wheezing or crackles Heart- regular rate and rhythm; no murmur, no gallop. Abdomen- normal bowel sounds, soft, nontender, no distension Extremities- no pretibial edema, no erythema seen Neuro- alert, oriented . hard of hearing.; PERRL, EOMI; no facial palsy; no dysarthria; motor 5/5 bilaterally; no pronator drift, co ordination of movements normal sensations intact. Results & Data Results & Data Vital Signs (Past 12 Hours) Vital Signs Temp Pulse Pulse Resp BP BP Pulse Ox 08/02/24 05:00 62 20 133/57 L 98 08/02/24 03:48 59 L 08/02/24 03:00 36.8 C 65 19 148/75 H 99 08/02/24 02:54 63 16 138/61 98 08/02/24 01:54 55 L 18 130/78 98 08/02/24 00:51 58 L 20 145/66 H 96 08/02/24 00:16 97 08/02/24 00:16 82 L 08/01/24 23:56 63 08/01/24 23:39 36.5 C 77 20 181/63 H 96 O2 Del Method O2 Flow Rate 08/02/24 05:00 Nasal Cannula 2 08/02/24 03:48 08/02/24 03:00 Nasal Cannula 2 08/02/24 02:54 08/02/24 01:54 08/02/24 00:51 08/02/24 00:16 Nasal Cannula 2 08/02/24 00:16 Room Air 08/01/24 23:56 08/01/24 23:39 Room Air Diagnostic Findings Laboratory Results WBC 10.68 K/ul (4.8-10.8) 08/01/24 23:51 RBC 5.05 M/uL (4.20-5.40) 08/01/24 23:51 Hgb 13.7 g/dl (12.0-16.0) 08/01/24 23:51 Hct 41.2 % (37.0-47.0) 08/01/24 23:51 MCV 81.6 fL (80.0-100.0) 08/01/24 23:51 MCH 27.1 pg (25.0-34.0) 08/01/24 23: MCHC 33.3 g/dL (32.0-36.0) 08/01/24 23: RDW Std Deviation 38.5 fL (36.4-46.3) 08/01/24: RDW Coeff of [place] 13.1 % (11.5-14.5) 08/01/24 23: Plt Count 245 K/uL (130-400) 08/01/24 23: MPV 9.8 fL (9.4-12.4) 08/01/24 23:51 Immature Gran % (Auto) 0.2 % 08/01/24 23:51 Neut % (Auto) 88.5 % 08/01/24 23:51 Lymph % (Auto) 8.6 % 08/01/24 23:51 [place] % (Auto) 2.2 % 08/01/24 23:51 Eos % (Auto) 0.1 % 08/01/24 23:51 Baso % (Auto) 0.4 % 08/01/24 23:51 Neut # (Auto) 9.46 K/uL (1.40-6.50) H 08/01/24 23:51 Lymph # (Auto) 0.92 K/uL (1.20-3.40) L 08/01/24 23:51 [place] # (Auto) 0.23 K/uL (0.11-0.59) 08/01/24 23:51 Eos # (Auto) 0.01 K/uL (0.00-0.50) 08/01/24 23:51 Baso # (Auto) 0.04 K/uL (0.00-0.20) 08/01/24 23:51 Immature Gran # (Auto) 0.02 K/uL (0.01-0.20) 08/01/24 23:51 Sodium 139 mmol/L (136-145) 08/01/24 23:51 Potassium 3.6 mmol/L (3.5-5.1) 08/01/24 23:51 Chloride 103 mmol/L (98-107) 08/01/24 23:51 Carbon Dioxide 24 mmol/L (21-32) 08/01/24 23:51 Anion Gap 12 (3-11) H 08/01/24 23:51 BUN 11 mg/dl (6-23) 08/01/24 23:51 Creatinine 0.68 mg/dl (0.6-1.2) 08/01/24 23:51 Est Cr Clr Drug Dosing Not Reportable 08/01/24 23:51 eGFR 95.99 08/01/24 23:51 BUN/Creatinine Ratio 16.2 (10-20) 08/01/24 23:51 Glucose 189 mg/dl (70-99(Fasting)) H 08/01/24 23:51 Calcium 9.7 mg/dl (8.6-10.3) 08/01/24 23:51 Magnesium 1.8 mg/dl (1.7-2.4) 08/01/24 23:51 Total Bilirubin 0.4 mg/dl (0.2-1.0) 08/01/24 23:51 AST 12 U/L (13-39) L 08/01/24 23:51 ALT 8 U/L (7-52) 08/01/24 23:51 Alkaline Phosphatase 98 U/L (34-104) 08/01/24 23:51 Total Protein 8.1 gm/dl (6.0-8.3) 08/01/24 23:51 Albumin 4.3 gm/dl (3.4-5.0) 08/01/24 23:51 Globulin 3.8 gm/dl (2.5-4.0) 08/01/24 23:51 Albumin/Globulin Ratio 1.1 (0.9-2) 08/01/24 23:51 Urine Color Yellow 08/02/24 03:41 Urine Appearance Clear (Clear) 08/02/24 03:41 Urine pH 7.0 (4.5-7.5) 08/02/24 03:41 Ur Specific [place] 1.011 (1.000-1.030) 08/02/24 03:41 Urine Protein Negative (Negative) 08/02/24 03:41 Urine Glucose (UA) Negative (Negative) 08/02/24 03:41 Urine Ketones Trace (Negative) H 08/02/24 03:41 Urine Blood Negative (Negative) 08/02/24 03:41 Urine Nitrite Negative (Negative) 08/02/24 03:41 Urine Bilirubin Negative (Negative) 08/02/24 03:41 Urine Urobilinogen Negative (Negative) 08/02/24 03:41 Ur Leukocyte Esterase Negative (Negative) 08/02/24 03:41 Urine Comment 08/02/24 03:41 Impressions Chest X-Ray 08/01/24 23:51 EXAM: XR chest 1V portable CLINICAL HISTORY: vertigo. TECHNIQUE: An X-ray image of the chest is obtained in AP projection. COMPARISON: 11/11/2023. FINDINGS: Pulmonary Parenchyma: Accentuated bronchovascular markings of both lung echavarria. No interval change. No evidence of consolidation, collapse, or focal opacities. No pulmonary nodules are identified. No evidence of pleural effusion or pleural thickening. Heart and Mediastinum: Heart size and shape are normal. No mediastinal widening or masses. No hilar or mediastinal lymphadenopathy. Bony Thorax: Internal fixation of the lower cervical spine with metallic prosthesis. No interval change. Bony thorax appears intact without fractures or deformities. Soft Tissues: Soft tissues overlying the chest wall are unremarkable. IMPRESSION: Accentuated bronchovascular markings of both lung echavarria. No interval change. Electronically signed by Marcus Yoon 08-02-2024 01:[address] 08/02/24 02:45 EXAM: CT head/brain wo con CLINICAL HISTORY: Vertigo. TECHNIQUE: Axial non-contrast CT scan of the brain was performed from the skull base to the high parietal region. One of the following dose reduction techniques was utilized for this exam: Automated exposure control, adjustment of the mA and/or kV according to patient size, use of iterative reconstruction. COMPARISON: Prior head CT on 11/12/2023. FINDINGS: Ventricular System: Mildly dilated lateral ventricles with mild signs of subependymal edema. 3rd and 4th ventricles are normal in size and configuration. Brain Parenchyma: Bilateral periventricular white matter hypodense foci, indicating chronic small vessel disease. Normal attenuation of the cerebellum and brainstem. No evidence of acute infarct, hemorrhage, or mass effect. No abnormal areas of hyperattenuation. Subarachnoid Spaces: No evidence of subarachnoid hemorrhage or extra-axial fluid collections. Cerebellum and Brainstem: No masses, lesions, or areas of abnormal density. Orbits: Normal appearance of the globes, optic nerves, and extraocular muscles. No evidence of orbital masses or abnormal density. Sinuses: Clear paranasal sinuses. No evidence of sinusitis or mucosal thickening. Mastoid Air Cells: Clear mastoid air cells. No evidence of mastoiditis. Skull: Normal skull morphology. IMPRESSION: 1. No interval changes could be seen, in terms of stable, mildly enlarged lateral ventricles, with bilateral periventricular white matter changes related to chronic small vessel disease. 2. No acute brain pathology. Electronically signed by Marcus Yoon 08-02-2024 04:37 AM Code Status & VTE Plan VTE Prophylaxis Plan VTE Prophylaxis will be ordered: Yes
--- NOTE | 2024-08-02 07:24 | CT Scan Report ---
EXAM: CT angio neck with con CLINICAL HISTORY: vertigo, nausea TECHNIQUE: Contrast enhanced thin slice CT angiography scan of the carotid vessels was performed with intravenous contrast. Angiographic images were processed, 3D MIP images were acquired for interpretation.Contiguous axial images were obtained. Reformatted coronal and sagittal images were also reviewed. If IV contrast material had not been administered, the likelihood of detecting abnormalities relevant to the patients condition would have been substantially decreased. CT scan was performed according to ALARA (as low as reasonable achievable). 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 Common carotid artery, carotid Bulb, internal carotid artery , and origin of the external carotid artery are well opacified. Vertebral arteries are well opacified. Jugular veins are well opacified. Included lung apices are grossly unremarkable. Thyroid gland shows heterogeneously enhancing hypodense lesion is right lobe - USG correlation suggested -stable. IMPRESSION: 1. No evidence of stenosis or aneurysm. No evidence of dissection. Atherosclerotic calcifications are noted involving bilateral carotid bulb without significant stenosis-stable. No other new interval abnormality since prior study. Electronically signed by Kevin Barry 08-02-2024 07:24 AM
--- NOTE | 2024-08-02 07:27 | CT Scan Report ---
EXAM: CT angio head w con CLINICAL HISTORY: vertigo, nausea TECHNIQUE: Contrast enhanced thin slice CT angiography scan of the cerebral vessels was performed with intravenous contrast. Angiographic images were processed, 3D MIP images were acquired for interpretation. Contiguous axial images were obtained. Reformatted coronal and sagittal images were also reviewed. If IV contrast material had not been administered, the likelihood of detecting abnormalities relevant to the patients condition would have been substantially decreased. CT scan was performed according to ALARA (as low as reasonable achievable). 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 FINDINGS: Bilateral internal carotid arteries show normal course, calibre and opacification in the canalicular and cavernous part. Their division into the anterior cerebral artery and middle cerebral artery is defined. A1, A2 and M1, M2 segments are normal on both the sides. Bilateral vertebral arteries are seen to unite the form the basilar artery in a normal fashion. Basilar artery shows normal course, caliber and opacification. Its division into the posterior cerebral arteries is defined. Bilateral P1 and P2 segments are normal. Visualized venous structures show normal opacification. No evidence of intracranial aneurysm or AV malformation is seen. IMPRESSION: 1. No evidence of stenosis or aneurysm. No evidence of dissection. No other new interval abnormality since prior study. Electronically signed by Kevin Barry 08-02-2024 07:25 AM
--- NOTE | 2024-08-02 10:20 | Magnetic Resonance Report ---
EXAM: MR brain wo/w con CLINICAL HISTORY: Vertigo, nausea TECHNIQUE: MRI of the brain was performed with and without intravenous contrast administration of 8 ml Gadavist. Sequences obtained include pre-contrast and post-contrast T1-weighted, T2-weighted, FLAIR (Fluid-Attenuated Inversion Recovery), DWI (Diffusion-Weighted Imaging), and ADC (Apparent Diffusion Coefficient) sequences. COMPARISON: Comparison is made with prior CT dated 08/02/2024. FINDINGS: Brain Parenchyma: Stable age-related involutional changes. Stable small vessel ischemic changes in the white matter of the bilateral cerebral hemispheres showing patchy and confluent T2/FLAIR hyperintense signal. Prominent VR space in the right insular region. No evidence of acute infarction or hemorrhage. Shields-white matter differentiation is preserved. Post-Contrast Findings: No abnormal enhancement of the brain parenchyma or meninges. Ventricles and Sulci: Stable asymmetric dilatation of bilateral lateral ventricles with periventricular CSF ooze. Septum pellucidum is deviated to the right. Multiple thin-walled choroid plexus cysts in atria of bilateral lateral ventricles. 3rd and 4th ventricles are normal. Sulci and cisternal spaces are prominent. Brainstem and Cerebellum: Normal appearance of the brainstem and cerebellum without focal lesions or abnormal enhancement. Vessels: Intracranial vessels appear normal without evidence of vascular malformations or aneurysms. Skull and Calvarium: No evidence of skull vault lesions or abnormal marrow signal within the calvarium. Mucosal polyp in left maxillary sinus. Mild fluid signal in mastoid air cells. IMPRESSION: 1. No evidence of acute intracranial pathology or abnormal contrast enhancement. 2. Stable age-related involutional changes. 3. Stable small vessel ischemic changes in the white matter of the bilateral cerebral hemispheres. 4. Stable asymmetric dilatation of bilateral lateral ventricles with periventricular CSF ooze, could be normal pressure hydrocephalus. Electronically signed by Marcus Yoon 08-02-2024 10:20 AM
--- NOTE | 2024-08-02 10:41 | Neurology Consultation ---
Date of Consultation August 02, 2024 Assessment & Plan (1) Vertigo: Recommend continue to treat symptoms Echocardiogram as part of complete workup Continue frequent neurological assessments Obtain stat CT brain without contrast for any acute neurological decline Continue to monitor/control blood pressure & blood glucose Recommend monitor orthostatic vital signs Continue to monitor telemetry closely Recommend ZioPatch at DC if no evidence of arrhythmia during inpatient monitoring Continue to monitor renal and hepatic function, keep euvolemic Ok from neurology perspective for VTE prophylaxis PT/OT/SLT to eval and treat Recommend vestibular therapy/balance therapy Consider outpatient referral to ENT Telehealth Consultation Telehealth Information Telehealth Information: I performed this visit using a real-time telehealth connection between my location and the patients location ([facility]). After connecting through interactive tele-video, patient was identified by name and date of and/or wristband check.Patient (or authorized healthcare independent sales representative) was informed that this was a telemedicine visit and it was being conducted confidentially over secure lines. My office door was closed and no one else was present in the room with me.Patient (or authorized healthcare independent sales representative) provided consent to proceed with the visit, expressed an understanding of privacy and security of the telemedicine visit, and gave permission to have a hospital independent sales representative in the room in order to assist with the visit and to conduct portions of the visit, as needed. I informed the patient (or authorized healthcare independent sales representative) that I reviewed their record and presented the opportunity for them to ask any questions regarding the visit today. The patient agreed to participate. History of Present Illness Reason for Consultation: Vertigo Requesting Physician: Dr. Morelos Attending Physician: Henrique Morelos MD History of Present Illness 64yo female with past medical hx of vertigo presents with symptoms of vertigo. She was taking care of her Sons dog and developed symptoms including headache, nausea and sensation of room spinning. She symptoms are most severe when standing. She has undergone CT brain without contrast, personally reviewed today, revealing no overt evidence of hemorrhage. CT angiographic studies of head and neck, also personally reviewed today, reveal no overt evidence of large vessel occlusion or significant/flow limiting stenosis- noting stenosis within subclavian artery. I have performed televideo consultation. She has chronic severe hypoacusis. She is alert & oriented; able to answer all questions appropriately, name objects on televideo monitor, repeat phrases and perform complex/embedded commands without deficit. Neurological exam is non lateralizing/nonfocal in terms of motor strength and coordination. Allergies Allergy/AdvReac Type Severity Reaction Status Date / Time diphenhydramine Allergy Severe THROAT Verified 08/02/24 00:26 SWELLS, CAN'T BREATHE naproxen Allergy Severe THROAT Verified 08/02/24 00:26 SWELLS, CAN'T BREATHE sertraline Allergy Severe THROAT Verified 08/02/24 00:26 SWELLS, CAN'T BREATHE Sulfa (Sulfonamide Allergy Severe THROAT Verified 08/02/24 00:26 Antibiotics) SWELLS, CAN'T BREATHE tramadol Allergy Severe THROAT Verified 08/02/24 00:26 SWELLS, CAN'T BREATHE Home Medications Medication Instructions Recorded Confirmed Type No Known Home Medications 05/20/18 08/02/24 History Patient History Medical History (Updated 08/02/24 @ 06:26 by Erin Gutierrez MD) Stroke-like symptoms Nausea & vomiting Dizziness No significant past medical history Social History (Reviewed 08/02/24 @ 06: by Erin Gutierrez MD) Smoking Status: Never smoker Second Hand Exposure: No; Do You Dip or Chew Tobacco: No; Hx Alcohol Use: No Hx Substance Use: No Preferred Language: Romanian Communication Ability: Effective Steam Room Attendant Required: No Beliefs That Will Affect Care: None Current Living Situation: Spouse Feels Safe at Home: Yes Assistive Devices: Denture - Upper and Oxygen - Continuous Physical Exam Neurological Examination: Mental Status: Awake and alert. Oriented to person, place, and time. Fluency naming repetition and comprehension appear grossly intact. Affect remains appropriate. CN testing: I: Deferred II:Reports no changes in visual acuity III/IV/: No evidence of gaze preference, hippus, nystagmus or roving eye movements V: Facial sensation reportedly grossly intact to light touch bilaterally VII: Facial movements appear without evidence of asymmetry VIII: Hearing -chronic hypoacusis IX/X: Palate is unable to be accurately assessed via telemedicine XI: Shoulder shrug appears symmetric/ grossly intact bilaterally XII: Tongue protrudes midline without evidence of biting Motor exam: Strength appears grossly intact/symmetric in all extremities Sensory: Sensation is reportedly grossly intact throughout Coordination: No apparent evidence of dysmetria or dysdiadochokinesia Reflexes: Deferred Gait: Deferred Results & Data Vital Signs (Past 12 Hours) Vital Signs Temp Pulse Pulse Resp BP BP Pulse Ox 08/02/24 09:28 36.2 C L 73 18 154/50 H 98 08/02/24 08:54 52 L 08/02/24 07:20 08/02/24 06:36 61 18 158/75 H 97 08/02/24 05:00 62 20 133/57 L 98 08/02/24 03:48 59 L 08/02/24 03:00 36.8 C 65 19 148/75 H 99 08/02/24 02:54 63 16 138/61 98 08/02/24 01:54 55 L 18 130/78 98 08/02/24 00:51 58 L 20 145/66 H 96 08/02/24 00:16 97 08/02/24 00:16 82 L 08/01/24 23:56 63 08/01/24 23:39 36.5 C 77 20 181/63 H 96 Pulse Ox O2 Del Method O2 Del Method O2 Flow Rate O2 Flow Rate 08/02/24 09:28 Nasal Cannula 2 08/02/24 08:54 08/02/24 07:20 97 Nasal Cannula 2 08/02/24 06:36 Nasal Cannula 2 08/02/24 05:00 Nasal Cannula 2 08/02/24 03:48 08/02/24 03:00 Nasal Cannula 2 08/02/24 02:54 08/02/24 01:54 08/02/24 00:51 08/02/24 00:16 Nasal Cannula 2 08/02/24 00:16 Room Air 08/01/24 23:56 08/01/24 23:39 Room Air Laboratory Results Abnormal lab results 08/01/24 08/02/24 Range/Units 23:51 03:41 Neut # (Auto) 9.46 H (1.40-6.50) K/uL Lymph # (Auto) 0.92 L (1.20-3.40) K/uL Anion Gap 12 H (3-11) Glucose 189 H (70-99(Fasting)) mg/dl AST 12 L (13-39) U/L Urine Ketones Trace H (Negative) Diagnostic Findings Chest X-Ray 08/01/24 23:51 EXAM: XR chest 1V portable CLINICAL HISTORY: vertigo. TECHNIQUE: An X-ray image of the chest is obtained in AP projection. COMPARISON: 11/11/2023. FINDINGS: Pulmonary Parenchyma: Accentuated bronchovascular markings of both lung echavarria. No interval change. No evidence of consolidation, collapse, or focal opacities. No pulmonary nodules are identified. No evidence of pleural effusion or pleural thickening. Heart and Mediastinum: Heart size and shape are normal. No mediastinal widening or masses. No hilar or mediastinal lymphadenopathy. Bony Thorax: Internal fixation of the lower cervical spine with metallic prosthesis. No interval change. Bony thorax appears intact without fractures or deformities. Soft Tissues: Soft tissues overlying the chest wall are unremarkable. IMPRESSION: Accentuated bronchovascular markings of both lung echavarria. No interval change. Electronically signed by Marcus Yoon 08-02-2024 01:[address] 08/02/24 02:45 EXAM: CT head/brain wo con CLINICAL HISTORY: Vertigo. TECHNIQUE: Axial non-contrast CT scan of the brain was performed from the skull base to the high parietal region. One of the following dose reduction techniques was utilized for this exam: Automated exposure control, adjustment of the mA and/or kV according to patient size, use of iterative reconstruction. COMPARISON: Prior head CT on 11/12/2023. FINDINGS: Ventricular System: Mildly dilated lateral ventricles with mild signs of subependymal edema. 3rd and 4th ventricles are normal in size and configuration. Brain Parenchyma: Bilateral periventricular white matter hypodense foci, indicating chronic small vessel disease. Normal attenuation of the cerebellum and brainstem. No evidence of acute infarct, hemorrhage, or mass effect. No abnormal areas of hyperattenuation. Subarachnoid Spaces: No evidence of subarachnoid hemorrhage or extra-axial fluid collections. Cerebellum and Brainstem: No masses, lesions, or areas of abnormal density. Orbits: Normal appearance of the globes, optic nerves, and extraocular muscles. No evidence of orbital masses or abnormal density. Sinuses: Clear paranasal sinuses. No evidence of sinusitis or mucosal thickening. Mastoid Air Cells: Clear mastoid air cells. No evidence of mastoiditis. Skull: Normal skull morphology. IMPRESSION: 1. No interval changes could be seen, in terms of stable, mildly enlarged lateral ventricles, with bilateral periventricular white matter changes related to chronic small vessel disease. 2. No acute brain pathology. Electronically signed by Marcus Yoon 08-02-2024 04:37 AM Head CTA 08/02/24 06:12 EXAM: CT angio head w con CLINICAL HISTORY: vertigo, nausea TECHNIQUE: Contrast enhanced thin slice CT angiography scan of the cerebral vessels was performed with intravenous contrast. Angiographic images were processed, 3D MIP images were acquired for interpretation. Contiguous axial images were obtained. Reformatted coronal and sagittal images were also reviewed. If IV contrast material had not been administered, the likelihood of detecting abnormalities relevant to the patients condition would have been substantially decreased. CT scan was performed according to ALARA (as low as reasonable achievable). COMPARISON: 10:22:12 [facility] [employer] [facility]. FINDINGS: Bilateral internal carotid arteries show normal course, calibre and opacification in the canalicular and cavernous part. Their division into the anterior cerebral artery and middle cerebral artery is defined. A1, A2 and M1, M2 segments are normal on both the sides. Bilateral vertebral arteries are seen to unite the form the basilar artery in a normal fashion. Basilar artery shows normal course, caliber and opacification. Its division into the posterior cerebral arteries is defined. Bilateral P1 and P2 segments are normal. Visualized venous structures show normal opacification. No evidence of intracranial aneurysm or AV malformation is seen. IMPRESSION: 1. No evidence of stenosis or aneurysm. No evidence of dissection. No other new interval abnormality since prior study. Electronically signed by Kevin Barry 08-02-2024 07:25 AM Neck CTA 08/02/24 06:12 EXAM: CT angio neck with con CLINICAL HISTORY: vertigo, nausea TECHNIQUE: Contrast enhanced thin slice CT angiography scan of the carotid vessels was performed with intravenous contrast. Angiographic images were processed, 3D MIP images were acquired for interpretation.Contiguous axial images were obtained. Reformatted coronal and sagittal images were also reviewed. If IV contrast material had not been administered, the likelihood of detecting abnormalities relevant to the patients condition would have been substantially decreased. CT scan was performed according to ALARA (as low as reasonable achievable). COMPARISON: 10:22:12 [facility] [employer] [facility] FINDINGS: Atherosclerotic calcifications are noted involving bilateral carotid bulb without significant stenosis Included great vessels of the aortic arch are grossly unremarkable. Common carotid artery, carotid Bulb, internal carotid artery , and origin of the external carotid artery are well opacified. Vertebral arteries are well opacified. Jugular veins are well opacified. Included lung apices are grossly unremarkable. Thyroid gland shows heterogeneously enhancing hypodense lesion is right lobe - USG correlation suggested -stable. IMPRESSION: 1. No evidence of stenosis or aneurysm. No evidence of dissection. Atherosclerotic calcifications are noted involving bilateral carotid bulb without significant stenosis-stable. No other new interval abnormality since prior study. Electronically signed by eKvin Barry 08-02-2024 07:24 AM Brain MRI 08/02/24 07:20 EXAM: MR brain wo/w con CLINICAL HISTORY: Vertigo, nausea TECHNIQUE: MRI of the brain was performed with and without intravenous contrast administration of 8 ml Gadavist. Sequences obtained include pre-contrast and post-contrast T1-weighted, T2-weighted, FLAIR (Fluid-Attenuated Inversion Recovery), DWI (Diffusion-Weighted Imaging), and ADC (Apparent Diffusion Coefficient) sequences. COMPARISON: Comparison is made with prior CT dated 08/02/2024. FINDINGS: Brain Parenchyma: Stable age-related involutional changes. Stable small vessel ischemic changes in the white matter of the bilateral cerebral hemispheres showing patchy and confluent T2/FLAIR hyperintense signal. Prominent VR space in the right insular region. No evidence of acute infarction or hemorrhage. Shields-white matter differentiation is preserved. Post-Contrast Findings: No abnormal enhancement of the brain parenchyma or meninges. Ventricles and Sulci: Stable asymmetric dilatation of bilateral lateral ventricles with periventricular CSF ooze. Septum pellucidum is deviated to the right. Multiple thin-walled choroid plexus cysts in atria of bilateral lateral ventricles. 3rd and 4th ventricles are normal. Sulci and cisternal spaces are prominent. Brainstem and Cerebellum: Normal appearance of the brainstem and cerebellum without focal lesions or abnormal enhancement. Vessels: Intracranial vessels appear normal without evidence of vascular malformations or aneurysms. Skull and Calvarium: No evidence of skull vault lesions or abnormal marrow signal within the calvarium. Mucosal polyp in left maxillary sinus. Mild fluid signal in mastoid air cells. IMPRESSION: 1. No evidence of acute intracranial pathology or abnormal contrast enhancement. 2. Stable age-related involutional changes. 3. Stable small vessel ischemic changes in the white matter of the bilateral cerebral hemispheres. 4. Stable asymmetric dilatation of bilateral lateral ventricles with periventricular CSF ooze, could be normal pressure hydrocephalus. Electronically signed by Marcus Yoon 08-02-2024 10:20 AM Medications Administered Home Medications Medication Instructions Recorded Confirmed Last Taken No Known Home Medications 05/20/18 08/02/24 Unknown Active Medications Generic Name Dose Route Start Last Admin Trade Name Freq PRN Reason Stop Dose Admin Lactated Ringer's 1,000 mls @ 100 mls/hr 08/02/24 07:20 08/02/24 08:08 Lr IV 08/05/24 07:19 100 mls/hr .Q10H NARDA Administration
--- NOTE | 2024-08-02 13:23 | Hospitalist Progress Note ---
Date of Service August 02, 2024 Assessment & Plan (1) Vertigo: Plan: This is a 64-year-old female who does not go to doctors and not take any medications presents with vertigo, nausea and headache. Vertigo Similar presentation Nov 2023 - neuro felt sx most consistent with BPPV and patient did not follow up with PCP or balance therapy afterwards In ED: CT head without acute intracranial abnormalities, CTA head and neck without evidence of stenosis or aneurysm. No evidence of dissection Brain MRI with : 1. No evidence of acute intracranial pathology or abnormal contrast enhancement. 2. Stable age-related involutional changes. 3. Stable small vessel ischemic changes in the white matter of the bilateral cerebral hemispheres. 4. Stable asymmetric dilatation of bilateral lateral ventricles with periventricular CSF ooze, could be normal pressure hydrocephalus Symptoms have improved overnight but still vertiginous with movement Dr. Vazquez of neurology saw in consult - recommend echo to complete workup, monitor orthostatic vitals, telemetry. Recommend vestibular therapy/ balance therapy, consider outpatient ENT referral Advanced diet, continue PRN Meclizine, IV fluids and antiemetics as needed PT consulted to try Presley's maneuver Patient admitted this AM - will not bill for encounter. Possible dc tomorrow if symptoms improved Care coordinated with Dr. Vázquez. Admission and Anticipated Discharge Date Admission Date: August 02, 2024 Subjective Seen and examined in 215-1. Still having room spinning sensation but it is improved since time in the ER. Nausea and vomiting have improved - last emesis yesterday PM. Has a dull frontal headache. No F/C, CP, SOB, abd pain, dysuria, diarrhea. No focal weakness or ambulatory dysfunction. Review of Systems Review of Systems: At least ten systems reviewed and negative except as noted in the HPI. Physical Exam Physical Exam: Gen: WD/WN, NAD, resting in bedside chair, A&Ox3 HEENT: Hard of hearing, + No Nystagmus. Normocephalic, atraumatic, mucous membranes moist Lung: Clear to Auscultation bilaterally Heart: Regular rate, regular rhythm Abdomen: Soft, NT, ND +BS x 4 Extremities: no edema Skin: Warm, no rash Results & Data Results & Data Vital Signs (Past 12 Hours) Vital Signs Temp Pulse Pulse Resp BP BP Pulse Ox 08/02/24 10:55 36.6 C 65 20 109/72 99 08/02/24 09:28 36.2 C L 73 18 154/50 H 98 08/02/24 08:54 52 L 08/02/24 07:20 08/02/24 06:36 61 18 158/75 H 97 08/02/24 05:00 62 20 133/57 L 98 08/02/24 03:48 59 L 08/02/24 03:00 36.8 C 65 19 148/75 H 99 08/02/24 02:54 63 16 138/61 98 08/02/24 01:54 55 L 18 130/78 98 Pulse Ox O2 Del Method O2 Del Method O2 Flow Rate O2 Flow Rate 08/02/24 10:55 Nasal Cannula 1 08/02/24 09:28 Nasal Cannula 2 08/02/24 08:54 08/02/24 07:20 97 Nasal Cannula 2 08/02/24 06:36 Nasal Cannula 2 08/02/24 05:00 Nasal Cannula 2 08/02/24 03:48 08/02/24 03:00 Nasal Cannula 2 08/02/24 02:54 08/02/24 01:54 Laboratory Results Short CBC 08/01/24 Range/Units 23:51 WBC 10.68 (4.8-10.8) K/ul Hgb 13.7 (12.0-16.0) g/dl Hct 41.2 (37.0-47.0) % Plt Count 245 (130-400) K/uL BMP 08/01/24 23:51 Sodium 139 Potassium 3.6 Chloride 103 Carbon Dioxide 24 BUN 11 Creatinine 0.68 Glucose 189 H Calcium 9.7 Liver Function 08/01/24 Range/Units 23:51 Total Bilirubin 0.4 (0.2-1.0) mg/dl AST 12 L (13-39) U/L ALT 8 (7-52) U/L Alkaline Phosphatase 98 (34-104) U/L Albumin 4.3 (3.4-5.0) gm/dl Urine 08/02/24 Range/Units 03:41 Urine Color Yellow Urine Appearance Clear (Clear) Urine pH 7.0 (4.5-7.5) Ur Specific [place] 1.011 (1.000-1.030) Urine Protein Negative (Negative) Urine Glucose (UA) Negative (Negative) Diagnostic Findings Chest X-Ray 08/01/24 23:51 EXAM: XR chest 1V portable CLINICAL HISTORY: vertigo. TECHNIQUE: An X-ray image of the chest is obtained in AP projection. COMPARISON: 11/11/2023. FINDINGS: Pulmonary Parenchyma: Accentuated bronchovascular markings of both lung echavarria. No interval change. No evidence of consolidation, collapse, or focal opacities. No pulmonary nodules are identified. No evidence of pleural effusion or pleural thickening. Heart and Mediastinum: Heart size and shape are normal. No mediastinal widening or masses. No hilar or mediastinal lymphadenopathy. Bony Thorax: Internal fixation of the lower cervical spine with metallic prosthesis. No interval change. Bony thorax appears intact without fractures or deformities. Soft Tissues: Soft tissues overlying the chest wall are unremarkable. IMPRESSION: Accentuated bronchovascular markings of both lung echavarria. No interval change. Electronically signed by Marcus Yoon 08-02-2024 01:[address] 08/02/24 02:45 EXAM: CT head/brain wo con CLINICAL HISTORY: Vertigo. TECHNIQUE: Axial non-contrast CT scan of the brain was performed from the skull base to the high parietal region. One of the following dose reduction techniques was utilized for this exam: Automated exposure control, adjustment of the mA and/or kV according to patient size, use of iterative reconstruction. COMPARISON: Prior head CT on 11/12/2023. FINDINGS: Ventricular System: Mildly dilated lateral ventricles with mild signs of subependymal edema. 3rd and 4th ventricles are normal in size and configuration. Brain Parenchyma: Bilateral periventricular white matter hypodense foci, indicating chronic small vessel disease. Normal attenuation of the cerebellum and brainstem. No evidence of acute infarct, hemorrhage, or mass effect. No abnormal areas of hyperattenuation. Subarachnoid Spaces: No evidence of subarachnoid hemorrhage or extra-axial fluid collections. Cerebellum and Brainstem: No masses, lesions, or areas of abnormal density. Orbits: Normal appearance of the globes, optic nerves, and extraocular muscles. No evidence of orbital masses or abnormal density. Sinuses: Clear paranasal sinuses. No evidence of sinusitis or mucosal thickening. Mastoid Air Cells: Clear mastoid air cells. No evidence of mastoiditis. Skull: Normal skull morphology. IMPRESSION: 1. No interval changes could be seen, in terms of stable, mildly enlarged lateral ventricles, with bilateral periventricular white matter changes related to chronic small vessel disease. 2. No acute brain pathology. Electronically signed by Marcus Yoon 08-02-2024 04:37 AM Head CTA 08/02/24 06:12 EXAM: CT angio head w con CLINICAL HISTORY: vertigo, nausea TECHNIQUE: Contrast enhanced thin slice CT angiography scan of the cerebral vessels was performed with intravenous contrast. Angiographic images were processed, 3D MIP images were acquired for interpretation. Contiguous axial images were obtained. Reformatted coronal and sagittal images were also reviewed. If IV contrast material had not been administered, the likelihood of detecting abnormalities relevant to the patients condition would have been substantially decreased. CT scan was performed according to ALARA (as low as reasonable achievable). COMPARISON: 10:22:12 FIELD RECRUITER. FINDINGS: Bilateral internal carotid arteries show normal course, calibre and opacification in the canalicular and cavernous part. Their division into the anterior cerebral artery and middle cerebral artery is defined. A1, A2 and M1, M2 segments are normal on both the sides. Bilateral vertebral arteries are seen to unite the form the basilar artery in a normal fashion. Basilar artery shows normal course, caliber and opacification. Its division into the posterior cerebral arteries is defined. Bilateral P1 and P2 segments are normal. Visualized venous structures show normal opacification. No evidence of intracranial aneurysm or AV malformation is seen. IMPRESSION: 1. No evidence of stenosis or aneurysm. No evidence of dissection. No other new interval abnormality since prior study. Electronically signed by Kevin Barry 08-02-2024 07:25 AM Neck CTA 08/02/24 06:12 EXAM: CT angio neck with con CLINICAL HISTORY: vertigo, nausea TECHNIQUE: Contrast enhanced thin slice CT angiography scan of the carotid vessels was performed with intravenous contrast. Angiographic images were processed, 3D MIP images were acquired for interpretation.Contiguous axial images were obtained. Reformatted coronal and sagittal images were also reviewed. If IV contrast material had not been administered, the likelihood of detecting abnormalities relevant to the patients condition would have been substantially decreased. CT scan was performed according to ALARA (as low as reasonable achievable). COMPARISON: 10:22:12 FIELD RECRUITER FINDINGS: Atherosclerotic calcifications are noted involving bilateral carotid bulb without significant stenosis Included great vessels of the aortic arch are grossly unremarkable. Common carotid artery, carotid Bulb, internal carotid artery , and origin of the external carotid artery are well opacified. Vertebral arteries are well opacified. Jugular veins are well opacified. Included lung apices are grossly unremarkable. Thyroid gland shows heterogeneously enhancing hypodense lesion is right lobe - USG correlation suggested -stable. IMPRESSION: 1. No evidence of stenosis or aneurysm. No evidence of dissection. Atherosclerotic calcifications are noted involving bilateral carotid bulb without significant stenosis-stable. No other new interval abnormality since prior study. Electronically signed by Kevin Barry 08-02-2024 07:24 AM Brain MRI 08/02/24 07:20 EXAM: MR brain wo/w con CLINICAL HISTORY: Vertigo, nausea TECHNIQUE: MRI of the brain was performed with and without intravenous contrast administration of 8 ml Gadavist. Sequences obtained include pre-contrast and post-contrast T1-weighted, T2-weighted, FLAIR (Fluid-Attenuated Inversion Recovery), DWI (Diffusion-Weighted Imaging), and ADC (Apparent Diffusion Coefficient) sequences. COMPARISON: Comparison is made with prior CT dated 08/02/2024. FINDINGS: Brain Parenchyma: Stable age-related involutional changes. Stable small vessel ischemic changes in the white matter of the bilateral cerebral hemispheres showing patchy and confluent T2/FLAIR hyperintense signal. Prominent VR space in the right insular region. No evidence of acute infarction or hemorrhage. Shields-white matter differentiation is preserved. Post-Contrast Findings: No abnormal enhancement of the brain parenchyma or meninges. Ventricles and Sulci: Stable asymmetric dilatation of bilateral lateral ventricles with periventricular CSF ooze. Septum pellucidum is deviated to the right. Multiple thin-walled choroid plexus cysts in atria of bilateral lateral ventricles. 3rd and 4th ventricles are normal. Sulci and cisternal spaces are prominent. Brainstem and Cerebellum: Normal appearance of the brainstem and cerebellum without focal lesions or abnormal enhancement. Vessels: Intracranial vessels appear normal without evidence of vascular malformations or aneurysms. Skull and Calvarium: No evidence of skull vault lesions or abnormal marrow signal within the calvarium. Mucosal polyp in left maxillary sinus. Mild fluid signal in mastoid air cells. IMPRESSION: 1. No evidence of acute intracranial pathology or abnormal contrast enhancement. 2. Stable age-related involutional changes. 3. Stable small vessel ischemic changes in the white matter of the bilateral cerebral hemispheres. 4. Stable asymmetric dilatation of bilateral lateral ventricles with periventricular CSF ooze, could be normal pressure hydrocephalus. Electronically signed by Marcus Yoon 08-02-2024 10:20 AM
[2024-08-03 07:02] VITALS: RESP 18
[2024-08-03 07:04] LABS: Basophils # (auto) 0.07 K/uL (0.00-0.20); Basophils % (auto) 1.4 %; Eosinophils # (auto) 0.23 K/uL (0.00-0.50); Eosinophils % (auto) 4.7 %; Hematocrit (blood only) 37.4 % (37.0-47.0); Hemoglobin 12.1 g/dl (12.0-16.0); Immature Granulocytes # (auto) 0.01 K/uL (0.01-0.20); Immature Granulocytes % (auto) 0.2 %; Lymphocytes # (auto) 2.33 K/uL (1.20-3.40); Lymphocytes % (auto) 47.3 %; Mean Corpuscular Hemoglobin 27.4 pg (25.0-34.0); Mean Corpuscular Hgb Conc 32.4 g/dL (32.0-36.0); Mean Corpuscular Volume 84.8 fL (80.0-100.0); Mean Platelet Volume 9.7 fL (9.4-12.4); Monocytes # (auto) 0.32 K/uL (0.11-0.59); Monocytes % (auto) 6.5 %; Neutrophils # (auto) 1.97 K/uL (1.40-6.50); Neutrophils % (auto) 39.9 %; Platelet Count 209 K/uL (130-400); RDW Coefficient of Variation 13.3 % (11.5-14.5); RDW Standard Deviation 41.7 fL (36.4-46.3); Red Blood Count 4.41 M/uL (4.20-5.40); White Blood Count 4.93 K/ul (4.8-10.8)
[2024-08-03 07:39] LABS: BUN Creatinine Ratio 7.4 (10-20); Calcium 8.8 mg/dl (8.6-10.3); Creatinine Clr Calc Pharmacy 88.6 ml/min; Magnesium 1.8 mg/dl (1.7-2.4); Potassium 3.7 mmol/L (3.5-5.1)
--- NOTE | 2024-08-03 09:23 | Electrocardiogram Report ---
Test Reason : Blood Pressure : */* mmHG Vent. Rate : 60 BPM Atrial Rate : 60 BPM P-R Int : 208 ms QRS Dur : 90 ms QT Int : 456 ms P-R-T Axes : 44 62 80 degrees QTcB Int : 456 ms Normal sinus rhythm Normal ECG When compared with ECG of 11-Nov-2023 12:26, Nonspecific T wave abnormality no longer evident in Inferior leads Confirmed by Gia Arizmendi (Hermelinda) on 08/03/2024 9:22:43 AM Referred By: REFERRED SELF Confirmed By: Gia Arizmendi
[2024-08-03 11:03] VITALS: BP 120/64; PULSE 63; TEMP 97.9; O2SAT 93
--- NOTE | 2024-08-03 12:48 | Discharge Summary ---
Discharge Summary Date of Service August 03, 2024 Principal Dx & Hospital Course #1 = Principal Diagnosis (1) Vertigo: This is a 64-year-old female who does not go to doctors and not take any medications presents with vertigo, nausea and headache most consistent with BPPV. Peripheral vertigo, likely BPPV Similar presentation Nov 2023 - neuro felt sx most consistent with BPPV and patient did not follow up with PCP or balance therapy afterwards In ED: CT head without acute intracranial abnormalities, CTA head and neck without evidence of stenosis or aneurysm. No evidence of dissection Brain MRI with : 1. No evidence of acute intracranial pathology or abnormal contrast enhancement 2. Stable age-related involutional changes. 3. Stable small vessel ischemic changes in the white matter of the bilateral cerebral hemispheres 4. Stable asymmetric dilatation of bilateral lateral ventricles with periventricular CSF ooze, could be normal pressure hydrocephalus Reviewed imaging findings with neurology who did not feel there was concern for NPH. In addition, patient does not have clinical findings consistent with dx Echo with bubble study with mild LVH, no wall motion abnormality, no evidence of ASD, PFO or interarterial shunt with administration of agitated contrast, preserved EF 60-65% Vertigo symptoms have resolved overnight and is ambulating independently PT consulted for Kevin's maneuver but did not need to attempt today due to resolution of symptoms overnight Dr. Vazquez of neurology saw in consult - Recommends vestibular therapy/ balance therapy, consider outpatient ENT referral Discharging with PRN Meclizine and Zofran as needed Counselled on importance of establishing with PCP or further medical care - patient is not interested at this time Care coordinated with Dr. Vázquez. Notes For Next Care Provider Peripheral vertigo likely BPPV, neuro recommending outpatient balance therapy vs ENT eval Medication Changes From Visit PRN meclizine and zofran Admission HPI Per Admitting Provider 64-year-old female who does not go to doctors and not take any medications presents with vertigo, nausea and headache. Patient is very hard of hearing. in the room and helped with H&P. Patient was at her son's place to take care of her dog. And she developed nausea headache and spinning of the room. When she stands up she feels like falling down. Patient says the headache is currently getting better. Nausea is better. But still feeling dizzy and room spinning. Vision is okay. Was having some runny nose when she was nauseous. Has no cough. No fevers. Her chest was hurting when she was having vomitings but currently resolved. No shortness of breath. No belly pain. Normal bowel and bladder movements. Patient has similar episode in November 2023 when she presented with dizziness and nausea and vomiting and at that time there was some slight right facial droop and rotary nystagmus on exam and stroke alert was called and she was status post TNK. Her CAT scans were unremarkable Except neck CTA showing 80% focal narrowing in the proximal left subclavian artery and MRI scan was okay and neurology thought her symptoms most likely BPPV. She was discharged home to follow with PCP. Patient did not followed with a PCP. Currently resting comfortably and hemodynamics stable. Past medical history. BPPV Past surgical history cholecystectomy and hip surgery Social history. No smoking. No alcohol use. No drug use. Family history. No significant family history Admission Exam Per Admitting Provider General- Not in acute distress Head- atraumatic Eyes- PERRL, EOMI, No nystagmus seen ENT- oropharynx clear Neck- supple, no JVD. Lungs- clear to auscultation no wheezing or crackles Heart- regular rate and rhythm; no murmur, no gallop. Abdomen- normal bowel sounds, soft, nontender, no distension Extremities- no pretibial edema, no erythema seen Neuro- alert, oriented . hard of hearing.; PERRL, EOMI; no facial palsy; no dysarthria; motor 5/5 bilaterally; no pronator drift, co ordination of movements normal sensations intact. Discharge Exam Gen: WD/WN, NAD, resting in bedside chair, A&Ox3 HEENT: Hard of hearing, + No Nystagmus. Normocephalic, atraumatic, mucous membranes moist Lung: Clear to Auscultation bilaterally Heart: Regular rate, regular rhythm Abdomen: Soft, NT, ND +BS x 4 Extremities: no edema Skin: Warm, no rash Updated Medication List Medication Instructions Recorded Confirmed Type No Known Home Medications 05/20/18 08/02/24 History meclizine 25 mg tablet 25 mg PO TID PRN vertigo #10 tabs 08/03/24 Rx ondansetron HCl 4 mg tablet 4 mg PO Q8H PRN nausea and 08/03/24 Rx vomiting #5 tabs Hospital Stay Data Consultations 08/02/24 08:00 Consult Neurology Routine Diagnostic Imagining Performed 08/02/24 02:45 CT head/brain wo con Stat 08/02/24 06:12 CTA head w con [CT angio head w con] Urgent CTA neck with con [CT angio neck with con] Urgent 08/02/24 07:20 MRI Brain [MR brain wo/w con] Urgent Pending Results Patient Have Any Pending Studies at Discharge: No Discharge Instructions Given to Patient (Per Discharging Provider) MEDICATION CHANGES: Meclizine as needed for vertigo. Zofran as needed for nausea. SUMMARY OF TEST RESULTS: You were admitted for vertigo. Imaging studies performed (CT head, CTA head/neck, MRI Brain) did not show any acute findings. Neurology service feels your vertigo is consistent with benign paroxysmal positional vertigo PENDING TEST RESULTS: None RECOMMENDATIONS FOR FOLLOW-UP: Follow up with PCP as scheduled. Neurology recommending follow up for balance/vestibular therapy or ENT as needed. Complete antibiotic in its entirety. Continue medication regimen as scheduled aside from changes noted above. OTHER INSTRUCTIONS: Seek medical attention if you have: * temperature above 101 * chest pain or trouble breathing * abdominal pain, nausea, vomiting * diarrhea, dark stools or bloody stools * any unanswered questions or concerns Call 911 if symptoms are severe. Please take good care of yourself. Call if you have any questions or problems. You can reach a [facility] hospitalist on duty at [facility] 24 hours a day by calling [phone]. Total Time Total Time Spent Total Time Spent (In Minutes): 45 Supervising Physician Co-Signing Physician Notes Patient seen and examined at bedside. Patient doing well today, better with meclizine. On exam, patient moving around well, still has some dizziness but manageable. Imaging unremarkable. PT/OT consulted for kevin maneuver. Patient has vertigo per neurology and improving. Take meclizine prn for vertigo symptoms. Do kevin manouver at home to destroy otoliths. Follow up with vestibular train as needed. I have seen and discussed the case with the collaborating advanced practitioner. I agree with the above H&P. I have reviewed and confirmed the patients medical history, the findings on physical examination, and the patients diagnosis and treatment plan with Angeles Rojas PA-C and agree with the information documented. I spent a total of 20 minutes coordinating, documenting, and providing care for this patient excluding time spent in the performance of separately billed services. All of the aforementioned completed outside of collaborating with the assigned advanced practitioner for a full treatment plan. I have reviewed the advanced practitioner's documentation, and I agree with, and take responsibility for the plan of care
== END 2024-08-03 12:02 | disposition home or self-care (01) ==
LOC: ED 23:36 → 2S 08-02 05:55 → INTOOBSV 08-02 05:55 → 2S 08-02 06:36